=== PATIENT | female | born 1945 | race Caucasian/White ===

== ENCOUNTER 2017-08-19 08:58 | Emergency (ER) | payer MEDICARE, BC ==
[~2017-08-19] VITALS: Ht 167.6 cm; Wt 64.6 kg
[2017-08-19 09:04] VITALS: BP 151/72; PULSE 104; RESP 16; TEMP 98.4; O2SAT 98
[2017-08-19] MEDS ORDERED: ATOR20TA15 PO (09:11)
[2017-08-19] MEDS ORDERED: LEVO100T5 PO (09:11)
[2017-08-19] MEDS ORDERED: DIPH25CA PO (09:11)
[2017-08-19] MEDS ORDERED: PRED20 PO (09:37)
[2017-08-19] MEDS ORDERED: FAMO1TAB37 PO (09:38)
--- NOTE | 2017-08-19 09:39 | PD ---
HPI Chief Complaint: Skin Problem Time Seen by Provider: 09:25 Travel History International Travel<30 days: No Contact w/Intl Traveler<30days: No Traveled to known affect area: No History of Present Illness HPI 72 year old female here for evaluation of rash to her neck and abdomen times one week. She reports the rash is changed location over the course of the week. The rash is pruritic. She denies any new medications, lotions, detergents, foods. She is unable to identify what is causing it. Symptoms are mildly relieved with [id number] Benadryl. She denies difficulty swallowing, change in voice, wheezing, shortness of breath, or diarrhea. Symptom severity is moderate. PFSH Past Medical History High Cholesterol: Yes Diminished Hearing: No Thyroid Disease: Yes Influenza Vaccination: No ?: Not Past Surgical History Surgical History: No Previous Surgery Social History Alcohol Use: No Tobacco Use: No Allergies-Medications (Allergen,Severity, Reaction): Coded Allergies: erythromycin base (Verified Allergy, Intermediate, 08/19/17) Reported Meds & Prescriptions Reported Meds & Active Scripts Active Reported Diphenhydramine (Diphenhydramine HCl) 25 Mg Cap 25 Mg PO HS PRN Atorvastatin (Atorvastatin Calcium) 20 Mg Tab 20 Mg PO HS Levothyroxine (Levothyroxine Sodium) 100 Mcg Tab 100 Mcg PO DAILY Review of Systems Except as stated in HPI: all other systems reviewed are Neg Respiratory: No: Shortness of Breath Skin: Positive Rash, Positive Hives Physical Exam Narrative GENERAL: Well-nourished, well-developed patient. SKIN: Erythematous slightly raised urticarial rash to her lower abdomen left upper thigh. HEAD: Normocephalic. EYES: No scleral icterus. No injection or drainage. NECK: Supple, trachea midline. No JVD or lymphadenopathy. THROAT: No oropharyngeal edema. Uvula is midline. Airway patent CARDIOVASCULAR: Regular rate and rhythm without murmurs, gallops, or rubs. RESPIRATORY: Breath sounds equal bilaterally. No accessory muscle use. No wheezing GASTROINTESTINAL: Abdomen soft, non-tender, nondistended. MUSCULOSKELETAL: No cyanosis, or edema. BACK: Nontender without obvious deformity. No CVA tenderness. Data Data Last Documented VS Vital Signs Date Time Temp Pulse Resp B/P (MAP) Pulse Ox O2 Delivery O2 Flow Rate FiO2 08/19/17 09:04 98.4 104 16 151/72 (98) 98 [facility] Medical Decision Making Medical Screen Exam Complete: Yes Emergency Medical Condition: Yes Differential Diagnosis Urticaria, allergic contact dermatitis, atopic dermatitis Narrative Course 72-year-old female here with urticarial rash on her abdomen times one week. The rash is localized to the trunk and left lower extremity only. Symptoms are slightly improved with Benadryl. Vision is unable to determine the cause. On exam she has urticaria. No oropharyngeal swelling. No wheezing. She'll be treated with steroids and Benadryl. 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 Return precautions discussed. Diagnosis Primary Impression: Urticaria Referrals: Primary Care Physician Additional Instructions: Take medications as prescribed. Continue to take Benadryl 25-50 milligrams every 6 hours as needed for itching. Follow-up with her primary doctor. Return to the emergency department if he developed difficulty swallowing, oral/ facial swelling, difficulty breathing Scripts Famotidine (Pepcid) 20 Mg Tab 20 MG PO BID, #10 TAB 0 Refills Prov: Mai Zavala 08/19/17 Prednisone (Prednisone) 20 Mg Tab 40 MG PO DAILY, #10 TAB 0 Refills Take 40 mg (2 tablets) daily for 5 days Prov: Mai Zavala 08/19/17 Disposition: 01 DISCHARGE HOME Condition: Stable Mai Zavala Aug 19, 2017 09:39
== END 2017-08-19 09:58 | disposition home or self-care (01) ==
LOC: PHEFT 08:58
DX: L50.9 Urticaria, unspecified (principal)
CPT/HCPCS: 99283

== ENCOUNTER 2018-02-07 12:34 | Inpatient (IN) | payer MEDICARE, BC ==
[2018-02-07] VITALS (8 sets, daily range): BP systolic 111–140; BP diastolic 68–91; PULSE 102–124; RESP 17–24; TEMP 97.6–99; O2SAT 92–99
[~2018-02-07] VITALS: Ht 165.1 cm; Wt 53.2 kg
[~2018-02-07 12:34] MED LIST: ATOR20TA15 PO; DIPH25CA PO; FAMO1TAB37 PO; LEVO100T5 PO; PRED20 PO
[2018-02-07] MEDS ORDERED: SODIUM CHLORIDE 0.9% FLUSH 10 ML FLUSH IVF PRN (13:15)
--- NOTE | 2018-02-07 13:21 | PD ---
HPI Chief Complaint: Respiratory Symptoms Time Seen by Provider: 12:50 Travel History International Travel<30 days: No Contact w/Intl Traveler<30days: No Traveled to known affect area: No History of Present Illness HPI The patient is a 72-year-old female who presents to the emergency department via private vehicle for shortness of breath of one weeks duration. The patient no shortness of breath of one weeks duration with increasing symptoms over the last week. The patient does note increasing shortness of breath is worse with exertion, denies any orthopnea or chest pain. The patient does have a remote history of tobacco use for approximately 15 years, quit smoking 13 years ago. The patient saw her primary physician, Dr. Clements, who ordered an outpatient chest x-ray that was performed yesterday. The patient then went back for CT of the thorax today and was referred to the emergency department for abnormal findings. The patient denies any known history of lung carcinoma or other previous cancer including lymphoma. She denies any known history of COPD. She does have a history of hypothyroidism and hyperlipidemia. She denies any recent travel, hospitalizations, surgeries, or history of pulmonary embolism or DVT. She denies any previous history of congestive heart failure. She denies any new swelling to the lower extremities. Symptoms are moderate and progressive. PFSH Past Medical History High Cholesterol: Yes Diminished Hearing: No Thyroid Disease: Yes ?: Not Social History Alcohol Use: No Tobacco Use: No Substance Use: No Allergies-Medications (Allergen,Severity, Reaction): Coded Allergies: erythromycin base (Verified Allergy, Intermediate, 02/07/18) Reported Meds & Prescriptions Reported Meds & Active Scripts Active Pepcid (Famotidine) 20 Mg Tab 20 Mg PO BID Reported Atorvastatin (Atorvastatin Calcium) 20 Mg Tab 20 Mg PO HS Levothyroxine (Levothyroxine Sodium) 100 Mcg Tab 100 Mcg PO DAILY Review of Systems Except as stated in HPI: all other systems reviewed are Neg General / Constitutional: No: Fever Cardiovascular: Positive: Dyspnea on exertion, No: Chest Pain or Discomfort, Diaphoresis Respiratory: Positive: Shortness of Breath Gastrointestinal: No: Nausea, Vomiting, Abdominal Pain Musculoskeletal: No: Edema Neurologic: No: Dizziness Physical Exam Narrative GENERAL: Awake, alert, pleasant 72-year-old female who appears her stated age and is in no acute respiratory distress. SKIN: Focused skin assessment warm/dry. HEAD: Atraumatic. Normocephalic. EYES: No injection or drainage. ENT: No nasal bleeding or discharge. Mucous membranes pink and moist. NECK: Trachea midline. No JVD. CARDIOVASCULAR: Regular, tachycardic with a heart rate of 125. RESPIRATORY: Tachypnea with a respiratory rate of 24. Diminished breath sounds in the left base. GASTROINTESTINAL: Abdomen soft, non-tender, nondistended. No rebound tenderness. MUSCULOSKELETAL: No obvious deformities. No clubbing. No cyanosis. No edema. NEUROLOGICAL: Awake and alert. No obvious cranial nerve deficits. Motor grossly within normal limits. Normal speech. PSYCHIATRIC: Appropriate mood and affect; insight and judgment normal. Data Data Last Documented VS Vital Signs Date Time Temp Pulse Resp B/P (MAP) Pulse Ox O2 Delivery O2 Flow Rate FiO2 02/07/18 13:20 20 97 Nasal Cannula 2.00 02/07/18 13:00 124 02/07/18 12:43 98.3 128/83 (98) Orders Orders Complete Blood Count With Diff (02/07/18 13:04) Comprehensive Metabolic Panel (02/07/18 13:04) B-Type Natriuretic Peptide (02/07/18 13:04) Act Partial Throm Time (Ptt) (02/07/18 13:04) Prothrombin Time / Inr (Pt) (02/07/18 13:04) Magnesium (Mg) (02/07/18 13:04) Ckmb (Isoenzyme) Profile (02/07/18 13:04) Troponin I (02/07/18 13:04) Iv Access Insert/Monitor (02/07/18 13:04) Electrocardiogram (02/07/18 13:04) Ecg Monitoring (02/07/18 13:04) Oximetry (02/07/18 13:04) Oxygen Administration (02/07/18 13:04) Sodium Chloride 0.9% Flush (Ns Flush) (02/07/18 13:15) Admit Order (Ed Use Only) (02/07/18 14:19) Labs Laboratory Tests Test 02/07/18 13:18 White Blood Count 6.8 TH/MM3 Red Blood Count 5.27 MIL/MM3 Hemoglobin 12.4 GM/DL Hematocrit 38.6 % Mean Corpuscular Volume 73.3 FL Mean Corpuscular Hemoglobin 23.6 PG Mean Corpuscular Hemoglobin Concent 32.2 % Red Cell Distribution Width 16.5 % Platelet Count 407 TH/MM3 Mean Platelet Volume 7.2 FL Neutrophils (%) (Auto) 78.1 % Lymphocytes (%) (Auto) 13.5 % Monocytes (%) (Auto) 6.6 % Eosinophils (%) (Auto) 0.9 % Basophils (%) (Auto) 0.9 % Neutrophils # (Auto) 5.3 TH/MM3 Lymphocytes # (Auto) 0.9 TH/MM3 Monocytes # (Auto) 0.4 TH/MM3 Eosinophils # (Auto) 0.1 TH/MM3 Basophils # (Auto) 0.1 TH/MM3 CBC Comment DIFF FINAL Differential Comment Prothrombin Time 10.9 SEC Prothromb Time International Ratio 1.1 RATIO Activated Partial Thromboplast Time 32.1 SEC Blood Urea Nitrogen 22 MG/DL Creatinine 0.80 MG/DL Random Glucose 90 MG/DL Total Protein 8.9 GM/DL Albumin 3.4 GM/DL Calcium Level 9.5 MG/DL Magnesium Level 2.2 MG/DL Alkaline Phosphatase 117 U/L Aspartate Amino Transf (AST/SGOT) 25 U/L Alanine Aminotransferase (ALT/SGPT) 19 U/L Total Bilirubin 0.5 MG/DL Sodium Level 139 MEQ/L Potassium Level 3.8 MEQ/L Chloride Level 103 MEQ/L Carbon Dioxide Level 21.8 MEQ/L Anion Gap 14 MEQ/L Estimat Glomerular Filtration Rate 71 ML/MIN Total Creatine Kinase 55 U/L Troponin I 0.03 NG/ML B-Type Natriuretic Peptide 86 PG/ML MDM Medical Decision Making Medical Screen Exam Complete: Yes Emergency Medical Condition: Yes Medical Record Reviewed: Yes Interpretation(s) [facility] [place] CT all of the chest with contrast reveals there is a malignant appearing left upper lobe mass measuring up to 12.6 cm. It obstructs the left upper lobe bronchus, invades the mediastinum, encases and narrows the left pulmonary artery, and extends into the left atrium. Large left pleural effusion with compressive atelectasis of the left lower lobe. Nonacute findings include moderate to severe emphysema and coronary artery calcification. There is a rim calcified partially visualized cystic lesion in the left upper quadrant which very likely arises from the spleen. Given the appearance and chest findings abdomen and pelvis CT with IV contrast it is suggested for further evaluation. EKG reveals sinus tachycardia with a heart rate of 113. Q-wave noted in lead V1 and V2. Laboratory Tests Test 02/07/18 13:18 White Blood Count 6.8 TH/MM3 Red Blood Count 5.27 MIL/MM3 Hemoglobin 12.4 GM/DL Hematocrit 38.6 % Mean Corpuscular Volume 73.3 FL Mean Corpuscular Hemoglobin 23.6 PG Mean Corpuscular Hemoglobin Concent 32.2 % Red Cell Distribution Width 16.5 % Platelet Count 407 TH/MM3 Mean Platelet Volume 7.2 FL Neutrophils (%) (Auto) 78.1 % Lymphocytes (%) (Auto) 13.5 % Monocytes (%) (Auto) 6.6 % Eosinophils (%) (Auto) 0.9 % Basophils (%) (Auto) 0.9 % Neutrophils # (Auto) 5.3 TH/MM3 Lymphocytes # (Auto) 0.9 TH/MM3 Monocytes # (Auto) 0.4 TH/MM3 Eosinophils # (Auto) 0.1 TH/MM3 Basophils # (Auto) 0.1 TH/MM3 CBC Comment DIFF FINAL Differential Comment Prothrombin Time 10.9 SEC Prothromb Time International Ratio 1.1 RATIO Activated Partial Thromboplast Time 32.1 SEC Blood Urea Nitrogen 22 MG/DL Creatinine 0.80 MG/DL Random Glucose 90 MG/DL Total Protein 8.9 GM/DL Albumin 3.4 GM/DL Calcium Level 9.5 MG/DL Magnesium Level 2.2 MG/DL Alkaline Phosphatase 117 U/L Aspartate Amino Transf (AST/SGOT) 25 U/L Alanine Aminotransferase (ALT/SGPT) 19 U/L Total Bilirubin 0.5 MG/DL Sodium Level 139 MEQ/L Potassium Level 3.8 MEQ/L Chloride Level 103 MEQ/L Carbon Dioxide Level 21.8 MEQ/L Anion Gap 14 MEQ/L Estimat Glomerular Filtration Rate 71 ML/MIN Total Creatine Kinase 55 U/L Troponin I 0.03 NG/ML B-Type Natriuretic Peptide 86 PG/ML Differential Diagnosis Differential diagnosis includes lung carcinoma, lymphoma, squamous cell carcinoma, non-small cell carcinoma, compressive atelectasis, malignant pleural effusion, pulmonary embolism, metastatic cancer, hypoxia. Narrative Course IV was established, labs are drawn and sent, and the patient was placed on cardiac telemetry monitoring and continuous pulse oximetry monitoring. EKG was ordered and interpreted. I reviewed the patient's x-ray findings and CT of the thorax findings from [facility] [place] [facility]. The patient was placed on oxygen via nasal cannula 2 L. The patient will be admitted to the medical service covering for Dr. Clements. The patient will need evaluation by pulmonology, oncology, possibly cardiothoracic regarding the large mass that is encroaching on the pulmonary artery and the left atrium. Labs are essentially unremarkable. The patient is medically cleared to be admitted to the medical service. The patient will need evaluation and possible biopsy. The patient is comfortable with this plan of care and disposition. Therefore, [facility]. Physician Communication Physician Communication [facility] were [facility]. I discussed the patient Dr. Hamilton who agrees with admission. Diagnosis Primary Impression: Mass of left lung Additional Impressions: Pleural effusion Dyspnea Qualified Codes: R06.09 - Other forms of dyspnea Admitting Information Admitting Physician Requests: Admit Condition: Stable Darryl Sun MD February 07, 2018 13:21
[2018-02-07 13:32] LABS: AUTOMATED NEUTROPHIL # 5.3 TH/MM3 (1.8-7.7); BASOPHIL # 0.1 TH/MM3 (0-0.2); BASOPHIL % 0.9 % (0.0-2.0); EOSINOPHIL # 0.1 TH/MM3 (0-0.4); EOSINOPHIL % 0.9 % (0.0-4.0); HEMATOCRIT 38.6 % (35.0-46.0); HEMOGLOBIN 12.4 GM/DL (11.6-15.3); LYMPH % 13.5 % (9.0-44.0); LYMPHOCYTE # 0.9 TH/MM3 (1.0-4.8); MEAN CELL VOLUME 73.3 FL (80.0-100.0); MEAN CORPUSCULAR HEMOGLOBIN 23.6 PG (27.0-34.0); MEAN CORPUSCULAR HGB CONC 32.2 % (32.0-36.0); MEAN PLATELET VOLUME 7.2 FL (7.0-11.0); MONO % 6.6 % (0.0-8.0); MONOCYTE # 0.4 TH/MM3 (0-0.9); NEUT % 78.1 % (16.0-70.0); PLATELET COUNT 407 TH/MM3 (150-450); RED BLOOD COUNT 5.27 MIL/MM3 (4.00-5.30); RED CELL DISTRIBUTION WIDTH 16.5 % (11.6-17.2); WHITE BLOOD COUNT 6.8 TH/MM3 (4.0-11.0)
[2018-02-07 13:43] LABS: INTERNATIONAL NORMALIZED RATIO 1.1 RATIO; PROTHROMBIN TIME - PATIENT 10.9 SEC (9.8-11.6)
[2018-02-07 13:49] LABS: ALBUMIN 3.4 GM/DL (3.4-5.0); AST (GOT) 25 U/L (15-37); BICARBONATE 21.8 MEQ/L (21.0-32.0); BLOOD UREA NITROGEN 22 MG/DL (7-18); CALCIUM 9.5 MG/DL (8.5-10.1); CHLORIDE 103 MEQ/L (98-107); GLOMERULAR FILTRATION RATE 71 ML/MIN (>89); GLUCOSE,RANDOM 90 MG/DL (74-106); MAGNESIUM 2.2 MG/DL (1.5-2.5); SODIUM (NA) 139 MEQ/L (136-145)
[2018-02-07 13:54] LABS: ALKALINE PHOSPHATASE 117 U/L (45-117); ALT (GPT) 19 U/L (10-53); TOTAL BILIRUBIN ADULT 0.5 MG/DL (0.2-1.0); TOTAL PROTEIN 8.9 GM/DL (6.4-8.2); TROPONIN I 0.03 NG/ML (0.02-0.05)
[2018-02-07] MEDS ORDERED: BISACODYL 10 MG SUPP RECTAL PRN (14:45)
[2018-02-07] MEDS ORDERED: LACTULOSE SYRUP 20 GM/30 ML CUP PO PRN (14:45)
[2018-02-07] MEDS ORDERED: SENNOSIDES 8.6 MG TAB PO PRN (14:45)
[2018-02-07] MEDS ORDERED: NALOXONE HCL 0.4 MG/ML AMP IV PUSH PRN (14:45)
[2018-02-07] MEDS ORDERED: ACETAMINOPHEN/HYDROcodone 325 MG/5 MG TAB PO PRN (14:45)
[2018-02-07] MEDS ORDERED: ACETAMINOPHEN 325 MG TAB PO PRN ×2 (14:45)
[2018-02-07] MEDS ORDERED: MAGNESIUM HYDROXIDE SUSP 30 ML CUP PO PRN (14:45)
--- NOTE | 2018-02-07 14:50 | HHI.HP ---
cc: Jody Clements Jr., MD [facility] Service [facility] Primary Care Physician Jody Clements MD Admission Diagnosis Large left lung mass, large left pleural effusion, dyspnea Diagnoses: (1) Mass of left lung (2) Pleural effusion (3) Dyspnea Chief Complaint: Shortness of breath Travel History International Travel<30 Days: No Contact w/Intl Traveler <30 Da: No Traveled to Known Affected Are: No History of Present Illness The patient is a 72-year-old female who presented to the emergency department for evaluation of shortness of breath that has been going on for the past week. She states that she saw her primary care physician a couple days ago. He ordered a chest x-ray, which was abnormal. CT of the thorax was done today and the patient was referred to the emergency department for further workup of a large left upper lobe mass. Patient continues to have shortness of breath. Denies chest pain. Dyspnea is somewhat improved now that she is on supplemental oxygen. Review of Systems Constitutional: DENIES: Fever, Chills, Night Sweats Eyes: DENIES: Blurred vision, Vision loss Ears, nose, mouth, throat: DENIES: Hearing loss Respiratory: COMPLAINS OF: Shortness of breath, DENIES: Cough, Wheezing, Sputum production Cardiovascular: DENIES: Chest pain, Palpitations, Dyspnea on Exertion, Lower Extremity Edema Gastrointestinal: DENIES: Abdominal pain, Constipation, Diarrhea, Nausea, Vomiting Genitourinary: DENIES: Urinary frequency, Urinary incontinence, Urgency, Hematuria, Dysuria, Nocturia Musculoskeletal: DENIES: Joint pain, Muscle aches Integumentary: DENIES: Pruritus, Rash Hematologic/lymphatic: DENIES: Bruising Neurologic: DENIES: Headache Past Family Social History Past Medical History Hyperlipidemia Hypothyroidism Past Surgical History Tonsillectomy Reported Medications Pepcid (Famotidine) 20 Mg Tab 20 Mg PO BID Atorvastatin (Atorvastatin Calcium) 20 Mg Tab 20 Mg PO HS Levothyroxine (Levothyroxine Sodium) 100 Mcg Tab 100 Mcg PO DAILY Allergies: Coded Allergies: erythromycin base (Verified Allergy, Intermediate, 02/07/18) Family History Mother had colon cancer Social History Quit smoking 13 years ago. Had smoked 1-1.5 packs per day for 15-20 years. Denies alcohol or illicit drug use. Physical Exam Vital Signs Vital Signs Date Time Temp Pulse Resp B/P (MAP) Pulse Ox O2 Delivery O2 Flow Rate FiO2 02/07/18 13:20 20 97 Nasal Cannula 2.00 02/07/18 13:19 98 Room Air 2.00 02/07/18 13:00 124 20 95 Room Air 02/07/18 12:59 96 Room Air 02/07/18 12:43 98.3 124 24 128/83 (98) 95 Physical Exam GENERAL: Well-nourished, well-developed female in no acute distress. HEENT: Normocephalic, atraumatic. Pupils equal, round and reactive. Extraocular movements intact. No scleral icterus. No injection or drainage. Oropharynx is clear. Mucous membranes are moist. CARDIOVASCULAR: Tachycardic. RESPIRATORY: Decreased breath sounds on the left. Breathing is non-labored. GASTROINTESTINAL: Abdomen soft, non-tender, nondistended. EXTREMITIES: No lower extremity edema. No calf tenderness. PSYCH: Alert and oriented x 3. Laboratory Laboratory Tests Test 02/07/18 13:18 White Blood Count 6.8 Red Blood Count 5.27 Hemoglobin 12.4 Hematocrit 38.6 Mean Corpuscular Volume 73.3 Mean Corpuscular Hemoglobin 23.6 Mean Corpuscular Hemoglobin Concent 32.2 Red Cell Distribution Width 16.5 Platelet Count 407 Mean Platelet Volume 7.2 Neutrophils (%) (Auto) 78.1 Lymphocytes (%) (Auto) 13.5 Monocytes (%) (Auto) 6.6 Eosinophils (%) (Auto) 0.9 Basophils (%) (Auto) 0.9 Neutrophils # (Auto) 5.3 Lymphocytes # (Auto) 0.9 Monocytes # (Auto) 0.4 Eosinophils # (Auto) 0.1 Basophils # (Auto) 0.1 CBC Comment DIFF FINAL Differential Comment Prothrombin Time 10.9 Prothromb Time International Ratio 1.1 Activated Partial Thromboplast Time 32.1 Blood Urea Nitrogen 22 Creatinine 0.80 Random Glucose 90 Total Protein 8.9 Albumin 3.4 Calcium Level 9.5 Magnesium Level 2.2 Alkaline Phosphatase 117 Aspartate Amino Transf (AST/SGOT) 25 Alanine Aminotransferase (ALT/SGPT) 19 Total Bilirubin 0.5 Sodium Level 139 Potassium Level 3.8 Chloride Level 103 Carbon Dioxide Level 21.8 Anion Gap 14 Estimat Glomerular Filtration Rate 71 Total Creatine Kinase 55 Troponin I 0.03 B-Type Natriuretic Peptide 86 Result Diagram: 02/07/18 1318 02/07/[address] [facility] today, report is as follows: Malignant appearing left upper lobe mass measuring up to 12.6 cm. It obstructs the left upper lobe bronchus, invades the mediastinum, encases and narrows the left pulmonary artery, and extends into the left atrium. Large left pleural effusion with compressive atelectasis of the left lower lobe. Caprini VTE Risk Assessment Caprini VTE Risk Assessment: Mod/High Risk (score >= 2) Caprini Risk Assessment Model Point Value = 1 Point Value = 2 Point Value = 3 Point Value = 5 Age 41-60 Minor surgery BMI > 25 kg/m2 Swollen legs Varicose veins or History of unexplained or recurrent spontaneous Oral contraceptives or hormone replacement Sepsis (< 1 month) Serious lung disease, including pneumonia (< 1 month) Abnormal pulmonary function Acute myocardial infarction Congestive heart failure (< 1 month) History of inflammatory bowel disease Medical patient at bed rest Age 61-74 Arthroscopic surgery Major open surgery (> 45 min) Laparoscopic surgery (> 45 min) Malignancy Confined to bed (> 72 hours) Immobilizing plaster cast Central venous access Age >= 75 History of VTE Family history of VTE Factor V Leiden Prothrombin [id number] Lupus anticoagulant Anticardiolipin antibodies Elevated serum homocysteine Heparin-induced thrombocytopenia Other congenital or acquired thrombophilia Stroke (< 1 month) Elective arthroplasty Hip, pelvis, or leg fracture Acute spinal cord injury (< 1 month) Prophylaxis Regimen Total Risk Factor Score Risk Level Prophylaxis Regimen 0-1 Low Early ambulation 2 Moderate Order ONE of the following: *Sequential Compression Device (SCD) *Heparin 5000 units SQ BID 3-4 Higher Order ONE of the following medications: *Heparin 5000 units SQ TID *Enoxaparin/Lovenox 40 mg SQ daily (WT < 150 kg, CrCl > 30 mL/min) *Enoxaparin/Lovenox 30 mg SQ daily (WT < 150 kg, CrCl > 10-29 mL/min) *Enoxaparin/Lovenox 30 mg SQ BID (WT < 150 kg, CrCl > 30 mL/min) AND/OR *Sequential Compression Device (SCD) 5 or more Highest Order ONE of the following medications: *Heparin 5000 units SQ TID (Preferred with Epidurals) *Enoxaparin/Lovenox 40 mg SQ daily (WT < 150 kg, CrCl > 30 mL/min) *Enoxaparin/Lovenox 30 mg SQ daily (WT < 150 kg, CrCl > 10-29 mL/min) *Enoxaparin/Lovenox 30 mg SQ BID (WT < 150 kg, CrCl > 30 mL/min) AND *Sequential Compression Device (SCD) Assessment and Plan Assessment and Plan 1. Lung mass: Concerning for malignancy. Consult pulmonology, cardiothoracic surgery, and oncology. 2. Pleural effusion: Diagnostic/therapeutic ultrasound-guided thoracentesis ordered. Cytology ordered. 3. Hypothyroidism: Continue Synthroid. 4. Dyslipidemia: Continue statin. 5. DVT prophylaxis: SCDs, KASANDRA hose. Avoid chemical prophylaxis in anticipation of invasive procedure. Problem Qualifiers (1) Dyspnea: Qualified Codes: R06.09 - Other forms of dyspnea Samy Hamilton MD February 07, 2018 14:50
[2018-02-07] MEDS ORDERED: ONDANSETRON ODT 4 MG TAB PO PRN (15:00)
[2018-02-07] MEDS ORDERED: LIDOCAINE HCL 1% 20 ML VIAL ONE (16:08)
--- NOTE | 2018-02-07 16:24 | RADRPT ---
EXAM DATE/TIME: 02/07/2018 16:07 [facility] COMPARISON: No previous studies available for comparison. INDICATIONS : Post left thoracentesis. MEDICAL HISTORY : Hypercholesterolemia. SURGICAL HISTORY : None. ENCOUNTER: Initial ACUITY: 1 day PAIN SCORE: 8/10 LOCATION: Bilateral chest FINDINGS: Single view chest is provided. This demonstrates some continued residual pleural effusion on the left . The patient recently underwent left thoracentesis with removal of approximately 2 L of fluid. There is diffuse interstitial prominence on the right. The heart is normal in size. Note is made of 2 large well-circumscribed calcifications in the left upper quadrant of the abdomen. These are indeterminate in appearance. CT imaging of the abdomen would be of benefit for further asse ssment. These may represent calcified cyst however calcified aneurysm is not excluded. The osseous structures are intact. CONCLUSION: 1. There is a moderate amount of residual pleural effusion seen on the left despite removal of approx imately 2 L of fluid. No pneumothorax is identified. 2. There are 2 calcifications seen within the left upper quadrant of the abdomen measuring greater th an 5 cm. These are indeterminate by this x-ray. Differential considerations would include calcified c yst versus less likely aneurysm. CT imaging of the abdomen could be performed for more definitive ass essment. Marquez Fitzgerald MD on February 07, 2018 at 16:19 Board Certified Radiologist. This report was verified electronically.
--- NOTE | 2018-02-07 16:42 | RADRPT ---
EXAM DATE/TIME: 02/07/2018 15:20 [facility] COMPARISON: No previous studies available for comparison. INDICATIONS : Large left pleural effusion per CT done 02/06/18. MEDICAL HISTORY : Hypercholesterolemia. Hypothyroidism. SURGICAL HISTORY : Tonsillectomy. ENCOUNTER: Initial ACUITY: 1 week PAIN SCORE: 0/10 LOCATION: Left chest FLUID: Total volume of 1,800 cc of clear, red fluid was removed. Fluid was sent to lab for ordered studies. Post procedure scanning reveals no hematoma or other complication. TECHNIQUE: 1. Ultrasound guidance for thoracentesis. 2. Thoracentesis. The risks, benefits, and alternatives to ultrasound guided thoracentesis were explained to the patien t in lay simple terms, including the risk of bleeding and infection. Written and verbal informed con sent was obtained. Appropriate area for thoracentesis was marked under ultrasound guidance with the patient in the uprig ht position. Overlying skin was prepped and draped in the usual sterile fashion and with local anest hetic, a dermatotomy was made with an 11 blade scalpel. A 6 Latvian thoracentesis catheter was placed in the pleural space and fluid was removed. Catheter was then removed and a sterile dressing applie d. There were no immediate complications. The patient tolerated the procedure well and the left the ultrasound suite in stable condition. Chest radiograph is to be obtained. CONCLUSION: Uncomplicated ultrasound guided thoracentesis. Marquez Fitzgerald MD on February 07, 2018 at 16:39 Board Certified Radiologist. This report was verified electronically.
[2018-02-07] MEDS: ACETAMINOPHEN/HYDROcodone 325 MG/7.5 MG TAB PO PRN ×2 (17:10→21:11)
[2018-02-07 17:15] LABS: TOTAL PROTEIN,PLEURAL FLUID 4.7 GM/DL
[2018-02-07] MEDS ORDERED: DEXT 5%-NACL 0.45% 1000 ML INJ 1,000 ML IV SCH (17:38)
[2018-02-07] MEDS ORDERED: RESP: LIDOCAINE HCL 4% PF 5 ML NEB NEB SCH (17:45)
--- NOTE | 2018-02-07 17:56 | MB ---
cc: Lelo Lind MD DATE: 02/07/2018 REASON FOR CONSULTATION: Left lung mass. Malignancy suspect. HISTORY OF PRESENT ILLNESS: Mrs. Alford is a 72-year-old female who presents with increasing shortness of breath and a large left pleural effusion. The patient had a CT scan of the chest with evidence of a large left upper lobe lung mass. She underwent a thoracentesis with removal of 2 liters of fluid from the left pleural space. She is not short of breath; however, has some pain post-thoracentesis. She denies history of cough, expectoration, fever or chills. She used to smoke but stopped smoking about 13 years ago. PAST MEDICAL HISTORY: That of hypothyroidism, hyperlipidemia. No diabetes, no hypertension, no heart disease, acid reflux disease. ALLERGIES: ERYTHROMYCIN. FAMILY HISTORY: Positive for a mother who has colon cancer. SOCIAL HISTORY: Smoked; however, stopped as mentioned above about 13 years ago. She has a [id number] smoking history. Does not drink any alcohol, does not use drugs. REVIEW OF SYSTEMS: A 12-point review of systems is as per HPI and Past History, otherwise negative. PHYSICAL EXAMINATION: GENERAL: On exam, patient is alert, complaining of left shoulder pain. VITAL SIGNS: Temperature 98, pulse 110, respirations 20, blood pressure 130/80, oxygen saturation 96% on 2 liters oxygen nasal cannula. HEENT: Exam unremarkable. Eyes without icterus. NECK: Without adenopathy or thyroid enlargement. CHEST: Decreased breath sounds in the left base. CARDIAC EXAM: PMI not appreciated. S1, S2 audible. No murmur, no rub. ABDOMEN: Lax. Bowel sounds audible. EXTREMITIES: No clubbing, cyanosis or edema. LABORATORY DATA: White count 13,000, hemoglobin 12, hematocrit 38, platelets 407,000. Sodium 139, potassium 3.9, BUN 22, creatinine 0.8. IMAGING STUDIES: CT scan of the chest: A 12.6 cm mass, left upper lung, highly suspicious for malignancy with obstruction of the left upper lobe bronchus and mediastinal invasion, actually encasing and narrowing the pulmonary artery. IMPRESSION: 1. Left lung mass, malignancy highly suspect. 2. Left pleural effusion, likely malignant. 3. Question chronic obstructive pulmonary disease. 4. Hypothyroidism. 5. Hyperlipidemia. PLAN: The patient's left lung mass seems accessible to bronchoscopic examination. She did have a thoracentesis, which may yield a diagnosis. However, given the waiting period, I feel it appropriate to proceed with bronchoscopy at this time and obtain tissue diagnosis endobronchially which I discussed with the patient in detail including risks and possible complications. She is agreeable to proceed at this time. I do thank you for asking me to partake in Mrs. Alford's care. Lelo Lind MD WWW/MAYA , 05:38 PM , 05:55 PM
[2018-02-07] MEDS ORDERED: DIATRIZOATE MEGLUM/DIATRIZOATE SOD 9 ML CUP PO ONE (18:30)
[2018-02-07 18:33] LABS: PLEURAL FLUID HISTIOCYTES 1 %; PLEURAL FLUID LYMPHS 92 %; PLEURAL FLUID MESOTHELIAL 1 %; PLEURAL FLUID MONOS 1 %; PLEURAL FLUID POLYS (SEGS) 5 %
[2018-02-07 18:35] LABS: PLEURAL FLUID RBC 6835 /MM3 (0-0); PLEURAL FLUID WBC 767 /MM3 (0-10)
[2018-02-07] MEDS: DOCUSATE SODIUM 50 MG/SENNA 8.6 MG TAB PO SCH (21:00)
[2018-02-07] MEDS: ATORVASTATIN 20 MG TAB PO SCH (21:09)
[2018-02-07] MEDS ORDERED: IOHEXOL 350 MG/ML 10 ML VIAL (for RAD DIAG) IVCONTRAST ONE (22:35)
--- NOTE | 2018-02-07 23:15 | RADRPT ---
EXAM DATE/TIME: 02/07/2018 22:18 [facility] COMPARISON: No previous studies available for comparison. INDICATIONS : Evaluate for metastatic disease IV CONTRAST: 70 cc Omnipaque 350 (iohexol) IV ORAL CONTRAST: Prescribed oral contrast ingested. RADIATION DOSE: 9.28 CTDIvol (mGy) MEDICAL HISTORY : Lung mass, thyroid disease SURGICAL HISTORY : None. ENCOUNTER: Initial ACUITY: 1 day PAIN SCALE: 4/10 LOCATION: Abdomen TECHNIQUE: Volumetric scanning of the abdomen and pelvis was performed. Using automated exposure control and ad justment of the mA and/or kV according to patient size, radiation dose was kept as low as reasonably achievable to obtain optimal diagnostic quality images. DICOM format image data is available electro nically for review and comparison. FINDINGS: LOWER LUNGS: There is a large left pleural effusion partially visualized. No effusion on the right. LIVER: Multiple tiny low-density hepatic lesions are seen. These are to small to accurately characterize wit h CT. There is a dominant lesion measuring 17 mm within the dome of the liver in segment 7. It is low in density but poorly marginated. No ductal dilatation. Gallbladder is unremarkable. Portal veins pa tent. SPLEEN: 3 rim calcified cyst involving the liver. 2 are quite large measuring 6.6 cm and 5.5 cm respectively. The spleen is otherwise unremarkable.. PANCREAS: Within normal limits. KIDNEYS: Normal in size and shape. There is no mass, stone or hydronephrosis. ADRENAL GLANDS: Within normal limits. VASCULAR: There is no aortic aneurysm. BOWEL/MESENTERY: The stomach, small bowel, and colon demonstrate no acute abnormality. There is no free intraperitone al air or fluid. ABDOMINAL WALL: Within normal limits. RETROPERITONEUM: There is no lymphadenopathy. BLADDER: No wall thickening or mass. REPRODUCTIVE: Within normal limits. INGUINAL: There is no lymphadenopathy or hernia. MUSCULOSKELETAL: Within normal limits for patient age. CONCLUSION: 1. Several tiny low density lesions involving the liver with a 17 mm dominant lesion within the right lobe. These are poorly characterized given their small size. I cannot exclude metastatic lesions. Co nsideration could be made to an MRI of the liver to further evaluate. 2. Partial visualization of a large left pleural effusion. 3. 3 rim calcified cysts involving the spleen. Richard Anne Jr., MD on February 07, 2018 at 23:07 Board Certified Radiologist. This report was verified electronically.
[2018-02-07] MEDS ORDERED: MORPHINE SULFATE 4 MG/ML INJ IV PUSH ONE (23:30)
--- NOTE | 2018-02-07 23:44 | RADRPT ---
EXAM DATE/TIME: 02/07/2018 23:18 [facility] COMPARISON: CHEST EXPIRATION ONLY, February 07, 2018, 16:07. INDICATIONS : Left upper chest pain post thoracentesis. MEDICAL HISTORY : Hypercholesterolemia. SURGICAL HISTORY : None. ENCOUNTER: Subsequent ACUITY: 1 day PAIN SCORE: 5/10 LOCATION: Left upper chest FINDINGS: A single portable frontal view the chest shows significant cardiomegaly. Consolidation involving the majority of the left lung. Either apical pleural thickening or loculated fluid on the left side. Righ t lung is clear. Rim calcified splenic cyst noted. Contrast within the collecting system of both kidn eys. No pneumothorax. CONCLUSION: Unchanged cardiomegaly and left lung infiltrate. No pneumothorax. Richard Anne Jr., MD on February 07, 2018 at 23:41 Board Certified Radiologist. This report was verified electronically.
[2018-02-08] VITALS: BP 137/79; PULSE 97; RESP 17; TEMP 97.4; O2SAT 94
[2018-02-08] MEDS ORDERED: POVIDONE IODINE 5% (ANTISEPSIS KIT) 4 APPLICATIONS EACH NARE PRN (03:00)
[2018-02-08] MEDS ORDERED: SODIUM CHLORID 0.9% 500 ML IV PRN (03:00)
[2018-02-08] MEDS ORDERED: LACTATED RINGER'S 1000 ML IV PRN (03:00)
[2018-02-08] MEDS ORDERED: CHLORHEXIDINE GLUCONATE 2 % 1 PACK (2 CLOTHS) TOPICAL PRN (03:00)
[2018-02-08] MEDS: LEVOTHYROXINE SODIUM 100 MCG TAB PO SCH (05:29)
[2018-02-08] MEDS: DOCUSATE SODIUM 50 MG/SENNA 8.6 MG TAB PO SCH ×2 (07:16→21:00)
[2018-02-08 08:00] VITALS: BP 131/62; PULSE 96; RESP 19; TEMP 97.7; O2SAT 94
--- NOTE | 2018-02-08 08:10 | HHI.PR ---
Subjective Remarks ALERT NO SOB Objective Vital Signs Date Time Temp Pulse Resp B/P (MAP) Pulse Ox O2 Delivery O2 Flow Rate FiO2 02/08/18 00:00 97.4 97 17 137/79 (98) 94 02/07/18 20:00 98.9 107 17 131/85 (100) 92 02/07/18 17:18 97.6 108 18 140/86 (104) 99 02/07/18 16:04 98.7 109 18 117/91 (100) 95 02/07/18 15:22 99.0 102 18 112/79 (90) 95 02/07/18 15:20 02/07/18 15:11 102 20 111/68 (82) 95 Nasal Cannula 2.00 02/07/18 13:20 20 97 Nasal Cannula 2.00 02/07/18 13:19 98 Room Air 2.00 02/07/18 13:00 124 20 95 Room Air 02/07/18 12:59 96 Room Air 02/07/18 12:43 98.3 124 24 128/83 (98) 95 I/O 02/07/18 02/07/18 02/07/18 02/08/18 02/08/18 02/08/18 07:00 15:00 23:00 07:00 15:00 23:00 Intake Total 0 ml Balance 0 ml Intake Oral 0 ml # Voids 2 Result Diagram: 02/07/18 1318 02/07/18 1318 Objective Remarks GENERAL: SKIN: Warm and dry. HEAD: Atraumatic. Normocephalic. EYES: Pupils equal and round. No scleral icterus. No injection or drainage. ENT: No nasal bleeding or discharge. Mucous membranes pink and moist. NECK: Trachea midline. No JVD. CARDIOVASCULAR: Regular rate and rhythm. RESPIRATORY: No accessory muscle use. Clear to auscultation. Breath sounds equal bilaterally. GASTROINTESTINAL: Abdomen soft, non-tender, nondistended. Hepatic and splenic margins not palpable. MUSCULOSKELETAL: Extremities without clubbing, cyanosis, or edema. No obvious deformities. NEUROLOGICAL: Awake and alert. No obvious cranial nerve deficits. Motor grossly within normal limits. Five out of 5 muscle strength in the arms and legs. Normal speech. PSYCHIATRIC: Appropriate mood and affect; insight and judgment normal. Assessment and Plan Assessment and Plan LUNG MASS CA SUSPECT L PLEURAL EFFUSION PLAN BRONCHOSCOPY TODAY Lelo Lind MD February 08, 2018 08:10
[2018-02-08] MEDS ORDERED: DO NOT ADM ANY ANTICOAGULANT DRUGS PRN (08:45)
[2018-02-08 08:55] LABS: BICARBONATE 23.4 MEQ/L (21.0-32.0); CALCIUM 9.2 MG/DL (8.5-10.1); CREATININE 0.48 MG/DL (0.50-1.00)
[2018-02-08] MEDS ORDERED: MIDAZOLAM HCL 2 MG/2 ML VIAL ONE (09:00)
--- NOTE | 2018-02-08 09:04 | MR ---
cc: Lelo Lind MD DATE: 02/08/2018 PROCEDURE PERFORMED: Fiberoptic bronchoscopy, flexible. REASON FOR BRONCHOSCOPY: Left lung mass malignancy suspect. PROCEDURE: Fiberoptic bronchoscopy performed via LMA. Vocal cords intact. Trachea mildly hyperemic, frandy sharp. Right main bronchus, right upper, middle, and lower lobes, without obstruction or mass lesion. Left main bronchus orifice open at the bifurcation left upper and lower lobes. Significant obstruction of both upper and lower lobes, more so in the upper lobe with a fungating mass lesion within the lower left main bronchus. Washings, brushings and biopsy of the bifurcation area in the left upper and left lower lobe orifice were taken and sent for cytological exam as well as pathological exam. Biopsy x 2 were done. A cytological brush biopsies were done as well and sent for cytological exam. Procedure was very well tolerated. The patient was transferred to the recovery in stable condition. Minimal bleeding from biopsy site was noted, however, this has stopped at the end of the procedure. IMPRESSION: 1. Mass, left main bronchus at the bifurcation of the left upper and lower lobes. 2. Mild tracheobronchitis. 3. Samples obtained as above. 4. Procedure well tolerated. 5. The patient transferred to recovery in stable condition. Lelo Lind MD WWW/TL , 08:36 AM , 09:03 AM
[2018-02-08 10:45] VITALS: O2SAT 96
[2018-02-08 12:00] VITALS: BP 115/57; PULSE 88; RESP 19; TEMP 97.6; O2SAT 96
--- NOTE | 2018-02-08 13:41 | HHI.PR ---
Subjective Remarks Follow-up lung mass, pleural effusion. Patient states that she feels much better. No pain at this time. Shortness of breath has improved as well. Objective Vitals Vital Signs Date Time Temp Pulse Resp B/P (MAP) Pulse Ox O2 Delivery O2 Flow Rate FiO2 02/08/18 12:00 97.6 88 19 115/57 (76) 96 02/08/18 10:45 96 Nasal Cannula 2.00 02/08/18 09:15 115 16 116/57 (76) 91 Nasal Cannula 2 02/08/18 09:15 98.0 115 16 103/57 (72) 94 Nasal Cannula 2 02/08/18 09:00 119 16 116/57 (76) 94 Nasal Cannula 2 02/08/18 08:40 98.0 110 16 110/55 (73) 94 Nasal Cannula 2 02/08/18 08:00 97.7 96 19 131/62 (85) 94 02/08/18 00:00 97.4 97 17 137/79 (98) 94 02/07/18 20:00 98.9 107 17 131/85 (100) 92 02/07/18 17:18 97.6 108 18 140/86 (104) 99 02/07/18 16:04 98.7 109 18 117/91 (100) 95 02/07/18 15:22 99.0 102 18 112/79 (90) 95 02/07/18 15:20 02/07/18 15:11 102 20 111/68 (82) 95 Nasal Cannula 2.00 I/O 02/07/18 02/07/18 02/07/18 02/08/18 02/08/18 02/08/18 06:59 14:59 22:59 06:59 14:59 22:59 Intake Total 0 ml Balance 0 ml Intake Oral 0 ml # Voids 2 Result Diagram: 02/07/18 1318 02/08/18 0711 Imaging Last Impressions Chest X-Ray 02/07/18 2315 Signed Impressions: Service Date/Time: Wednesday, February 07, 2018 23:18 - CONCLUSION: Unchanged cardiomegaly and left lung infiltrate. No pneumothorax. Richard Anne Jr., MD Thoracentesis Ultrasound 02/07/18 0000 Signed Impressions: Service Date/Time: Wednesday, February 07, 2018 15:20 - CONCLUSION: Uncomplicated ultrasound guided thoracentesis. Marquez Fitzgerald MD Abdomen/Pelvis CT 02/07/18 0000 Signed Impressions: Service Date/Time: Wednesday, February 07, 2018 22:18 - CONCLUSION: 1. Several tiny low density lesions involving the liver with a 17 mm dominant lesion within the right lobe. These are poorly characterized given their small size. I cannot exclude metastatic lesions. Consideration could be made to an MRI of the liver to further evaluate. 2. Partial visualization of a large left pleural effusion. 3. 3 rim calcified cysts involving the spleen. Richard Anne Jr., MD Objective Remarks General: No acute distress. Heart: Regular rate and rhythm. No murmur. Lungs: Decreased breath sounds on the left, better than yesterday. Breathing is nonlabored. Abdomen: Soft, nontender, nondistended. Extremities: No lower extremity edema. Psych: Alert and oriented. Neuro: Normal speech. No focal deficits noted. Procedures 02/07/18 thoracentesis 02/08/18 bronchoscopy Urinary Catheter: No Vascular Central Line Catheter: No A/P Problem List: (1) Mass of left lung ICD Code: R91.8 - Other nonspecific abnormal finding of lung field Status: Acute (2) Pleural effusion ICD Code: J90 - Pleural effusion, not elsewhere classified Status: Acute (3) Dyspnea ICD Code: R06.00 - Dyspnea, unspecified Status: Acute Assessment and Plan 1. Lung mass: Concerning for malignancy. Appreciate pulmonology recommendations. Status post bronchoscopy. Pathology is pending. CT surgery and oncology consultations are pending. 2. Pleural effusion: Diagnostic/therapeutic ultrasound-guided thoracentesis done. Cytology pending. 3. Hypothyroidism: Continue Synthroid. 4. Dyslipidemia: Continue statin. 5. DVT prophylaxis: SCDs, KASANDRA hose. Discharge Planning Possible discharge home tomorrow if cleared by pulmonology, CT surgery, oncology. Problem Qualifiers (1) Dyspnea: Qualified Codes: R06.09 - Other forms of dyspnea Samy Hamilton MD February 08, 2018 13:41
[2018-02-08 16:00] VITALS: BP 101/60; PULSE 108; RESP 19; TEMP 97.8; O2SAT 93
--- NOTE | 2018-02-08 16:59 | MB ---
cc: Lisa Head Jacqueline R ARNP DATE: 02/08/2018 DATE OF : 1945 HISTORY OF PRESENT ILLNESS: A 72-year-old female presented with shortness of breath, large left pleural effusion, underwent left thoracentesis with removal of 2 liters of fluid, cultures and pathology pending. Previous to that, she had a CT of the chest on 02/07/2018 at [facility] showing a malignant-appearing left upper lobe mass measuring 12.6 cm obstructing the left upper bronchus, invading the mediastinum, encasing and narrows the left pulmonary artery and also extending into the left atrium. The patient has a mediastinal shift to the right. We were consulted to evaluate for possible biopsy for lung mass. Dr. Haile reviewed the films. The patient has extensive involvement with nonresectable mass. She did, however, undergo a bronchoscopy today by Dr. Lind, cytology obtained. Again, cultures and the path are pending. The patient has also apparently lost about 30 pounds since July. PAST MEDICAL HISTORY: Includes hypothyroidism, hyperlipidemia. PAST SURGICAL HISTORY: Includes the bronchoscopy. ALLERGIES: ERYTHROMYCIN. HOME MEDICATIONS: 1. Levothyroxine. 2. Atorvastatin. FAMILY HISTORY: Father is from pneumonia. Mother from colon cancer. SOCIAL HISTORY: Positive for tobacco use, smoked for about 15 years. She says she quit about 10 years ago. No alcohol. No illicit drugs. REVIEW OF SYSTEMS: GENERAL: Generalized fatigue. HEENT: No blurred vision, hearing loss. RESPIRATORY: Positive for cough, some shortness of breath. CARDIOVASCULAR: No paroxysmal nocturnal dyspnea, no orthopnea. GASTROINTESTINAL: No diarrhea or vomiting. GENITOURINARY: No burning, frequency, urgency. NIGHT BAKER: No history of TIA, CVA or seizure disorder. ENDOCRINOLOGY: No history of diabetes. Positive for hypothyroidism. PHYSICAL EXAMINATION: VITAL SIGNS: Blood pressure 116/60, heart rate of 88, O2 saturation 93 on 1 liter. GENERAL: A very thin-appearing female, alert and oriented, in no acute distress. HEENT: Head is normocephalic, atraumatic. Pupils equal and reactive. Oral mucosa pink, moist. NECK: Supple. No JVD. HEART: Sounds S1, S2. Regular rate and rhythm. No audible rubs or gallops. LUNGS: Very diminished in the left upper and lower lobe. Audible breath sounds on the right. ABDOMEN: Soft, flat, nontender, no masses or organomegaly. EXTREMITIES: No cyanosis, clubbing, or any edema. LABORATORY DATA: Hemoglobin 12, hematocrit of 38, white cell count of 6.8, platelet count of 407. Sodium 136, potassium 3.7, BUN of 18, creatinine 0.48. INR 1.1. Pleural fluid showed no growth in 24 hours. Path is pending. chest x-ray post-thoracentesis showed consolidation involving the majority of the left long. No pneumothorax. IMPRESSION AND PLAN: This is a 72-year-old female with left lung mass with an extensive involvement including the left pulmonary vein extending into the left atrium. There is a right-lebron shift of the mediastinum secondary to the mass. The mass is unresectable with extensive involvement. Recommendation is to wait for the bronchoscopy, cytology report and evaluation by Oncology for possible radiation therapy. At this time, no surgical intervention warranted at this time per Cardiovascular Surgery. AIXA Michelle MD JRT/MAYA , 04:17 PM , 04:57 PM
[2018-02-08 20:00] VITALS: BP 95/54; PULSE 100; RESP 16; TEMP 97.4; O2SAT 94
[2018-02-08] MEDS: ATORVASTATIN 20 MG TAB PO SCH (22:13)
--- NOTE | 2018-02-08 22:44 | EKG ---
Date Performed: 02/07/2018 Time Performed: 13:36:31 PTAGE: 72 years EKG: SINUS TACHYCARDIA POSSIBLE RIGHT VENTRICULAR CONDUCTION DELAY SEPTAL MYOCARDIAL INFARCTION ABNORMAL ECG WARNING: DATA QUALITY MAY AFFECT INTERPRETATION NO PREVIOUS TRACING DOCTOR: Uriel Mcfarlane Interpretating Date/Time 02/08/2018 22:43:44
[2018-02-09] VITALS: BP 98/56; PULSE 100; RESP 17; TEMP 97.2; O2SAT 95
[2018-02-09] MEDS: LEVOTHYROXINE SODIUM 100 MCG TAB PO SCH (06:18)
[2018-02-09 08:00] VITALS: BP 98/59; PULSE 114; RESP 17; TEMP 98.5; O2SAT 94
[2018-02-09] MEDS: DOCUSATE SODIUM 50 MG/SENNA 8.6 MG TAB PO SCH (08:57)
--- NOTE | 2018-02-09 10:38 | HHI.PR ---
Subjective Remarks Follow up lung mass. Patient has no complaints at this time. Denies chest pain, dyspnea, nausea, vomiting. Has been ambulating without oxygen. Wants to go home. Objective Vitals Vital Signs Date Time Temp Pulse Resp B/P (MAP) Pulse Ox O2 Delivery O2 Flow Rate FiO2 02/09/18 08:40 Nasal Cannula 2.00 02/09/18 08:00 98.5 114 17 98/59 (72) 94 02/09/18 00:00 97.2 100 17 98/56 (70) 95 02/08/18 22:20 Nasal Cannula 1.00 02/08/18 20:00 97.4 100 16 95/54 (68) 94 02/08/18 16:00 97.8 108 19 101/60 (74) 93 02/08/18 15:18 93 Nasal Cannula 1.00 02/08/18 12:00 97.6 88 19 115/57 (76) 96 02/08/18 10:45 96 Nasal Cannula 2.00 I/O 02/08/18 02/08/18 02/08/18 02/09/18 02/09/18 02/09/18 07:00 15:00 23:00 07:00 15:00 23:00 Intake Total 0 ml 1500 ml 240 ml Balance 0 ml 1500 ml 240 ml Intake Oral 0 ml 1500 ml 240 ml # Voids 2 4 2 Result Diagram: 02/07/18 1318 02/08/18 0711 Imaging Last Impressions Chest X-Ray 02/07/18 2315 Signed Impressions: Service Date/Time: Wednesday, February 07, 2018 23:18 - CONCLUSION: Unchanged cardiomegaly and left lung infiltrate. No pneumothorax. Richard Anne Jr., MD Thoracentesis Ultrasound 02/07/18 0000 Signed Impressions: Service Date/Time: Wednesday, February 07, 2018 15:20 - CONCLUSION: Uncomplicated ultrasound guided thoracentesis. Marquez Fitzgerald MD Abdomen/Pelvis CT 02/07/18 0000 Signed Impressions: Service Date/Time: Wednesday, February 07, 2018 22:18 - CONCLUSION: 1. Several tiny low density lesions involving the liver with a 17 mm dominant lesion within the right lobe. These are poorly characterized given their small size. I cannot exclude metastatic lesions. Consideration could be made to an MRI of the liver to further evaluate. 2. Partial visualization of a large left pleural effusion. 3. 3 rim calcified cysts involving the spleen. Richard Anne Jr., MD Objective Remarks General: No acute distress. Heart: Regular rate and rhythm. No murmur. Lungs: Decreased breath sounds on the left, improving. Breathing is nonlabored. Abdomen: Soft, nontender, nondistended. Extremities: No lower extremity edema. Psych: Alert and oriented. Neuro: Normal speech. No focal deficits noted. Procedures 02/07/18 thoracentesis 02/08/18 bronchoscopy Urinary Catheter: No Vascular Central Line Catheter: No A/P Problem List: (1) Mass of left lung ICD Code: R91.8 - Other nonspecific abnormal finding of lung field Status: Acute (2) Pleural effusion ICD Code: J90 - Pleural effusion, not elsewhere classified Status: Acute (3) Dyspnea ICD Code: R06.00 - Dyspnea, unspecified Status: Acute Assessment and Plan 1. Lung mass: Concerning for malignancy. Appreciate pulmonology recommendations. Status post bronchoscopy. Pathology is pending. CT surgery states this mass is non-operative. Oncology consultation is pending. 2. Pleural effusion: Diagnostic/therapeutic ultrasound-guided thoracentesis done. Cytology pending. 3. Hypothyroidism: Continue Synthroid. 4. Dyslipidemia: Continue statin. 5. DVT prophylaxis: KASANDRA Alba. Discharge Planning Plan for discharge home when cleared by oncology. Problem Qualifiers (1) Dyspnea: Qualified Codes: R06.09 - Other forms of dyspnea Samy Hamilton MD February 09, 2018 10:38
[2018-02-09 12:00] VITALS: BP 91/51; PULSE 100; RESP 18; TEMP 98.2; O2SAT 93
[2018-02-09 13:09] LABS: AMYLASE BODY FLUID 68 U/L; AMYLASE BODY FLUID TYPE PLEURAL
[2018-02-09 16:00] VITALS: BP 92/55; PULSE 104; RESP 19; TEMP 97.7; O2SAT 91
--- NOTE | 2018-02-09 17:28 | HHI.PR ---
Subjective Remarks ALERT NO SOB Objective Vital Signs Date Time Temp Pulse Resp B/P (MAP) Pulse Ox O2 Delivery O2 Flow Rate FiO2 02/09/18 12:00 98.2 100 18 91/51 (64) 93 02/09/18 09:30 Room Air 02/09/18 08:40 Nasal Cannula 2.00 02/09/18 08:00 98.5 114 17 98/59 (72) 94 02/09/18 00:00 97.2 100 17 98/56 (70) 95 02/08/18 22:20 Nasal Cannula 1.00 02/08/18 20:00 97.4 100 16 95/54 (68) 94 I/O 02/08/18 02/08/18 02/08/18 02/09/18 02/09/18 02/09/18 07:00 15:00 23:00 07:00 15:00 23:00 Intake Total 0 ml 1500 ml 240 ml Balance 0 ml 1500 ml 240 ml Intake Oral 0 ml 1500 ml 240 ml # Voids 2 4 2 Result Diagram: 02/07/18 1318 02/08/18 0711 Objective Remarks GENERAL: SKIN: Warm and dry. HEAD: Atraumatic. Normocephalic. EYES: Pupils equal and round. No scleral icterus. No injection or drainage. ENT: No nasal bleeding or discharge. Mucous membranes pink and moist. NECK: Trachea midline. No JVD. CARDIOVASCULAR: Regular rate and rhythm. RESPIRATORY: No accessory muscle use. Clear to auscultation. Breath sounds equal bilaterally. GASTROINTESTINAL: Abdomen soft, non-tender, nondistended. Hepatic and splenic margins not palpable. MUSCULOSKELETAL: Extremities without clubbing, cyanosis, or edema. No obvious deformities. NEUROLOGICAL: Awake and alert. No obvious cranial nerve deficits. Motor grossly within normal limits. Five out of 5 muscle strength in the arms and legs. Normal speech. PSYCHIATRIC: Appropriate mood and affect; insight and judgment normal. Assessment and Plan Assessment and Plan LUNG MASS CA SUSPECT L PLEURAL EFFUSION doing well post bronchoscopy PLAN check pathology Lelo Lind MD February 09, 2018 17:28
--- NOTE | 2018-02-09 18:22 | HHI.DCPOC ---
Discharge Care Plan Diagnosis: (1) Dyspnea (2) Pleural effusion (3) Mass of left lung Goals to Promote Your Health * To prevent worsening of your condition and complications * To maintain your health at the optimal level Directions to Meet Your Goals Take your medications as prescribed Follow your dietary instruction Follow activity as directed Keep your appointments as scheduled Take your immunizations and boosters as scheduled If your symptoms worsen call your PCP, if no PCP go to Urgent Care Center or Emergency Room Smoking is Dangerous to Your Health. Avoid second hand smoke Call the 24-hour hour crisis hotline for domestic abuse at Samy Hamilton MD February 09, 2018 18:22
--- NOTE | 2018-02-10 13:11 | MB ---
cc: Vonnie Hale MD DATE: 02/09/2018 CHIEF COMPLAINT: Imaging suspicious for lung malignancy. HISTORY OF PRESENT ILLNESS: Ms. Alford is a 72-year-old lady with a history of hyperlipidemia and hypothyroidism, who was admitted to the hospital on 02/07/2018 with shortness of breath. The patient reports that her shortness of breath had been present for several weeks; however, had been significantly and progressively worsening, especially over the past week. She was seen by her primary college and career counselor, Dr. Clements, who ordered a chest x-ray. The chest x-ray returned abnormal. She presented to the emergency room. Chest x-ray showed large left pleural effusion, underlying parenchymal consolidation in the lower lobe and/or lingula and recommended CT scan with contrast for further evaluation. CT scan with contrast showed left upper lobe mass measuring approximately 12.6 x 10 x 10.8 cm that obstructs left upper lobe bronchus near its origin and abuts the pleura anteriorly and invades the mediastinum. It additionally encased the left main pulmonary vein and causes luminal narrowing. The mass grows into the left pulmonary vein and extends into the left atrium. There is compressive atelectasis of the left lower lobe secondary to the large left pleural effusion. The right aerated lung demonstrates moderate to severe emphysema. No pneumothorax is present. CT scan of the abdomen and pelvis showed several tiny low density lesions involving the liver with a 17 mm dominant lesion within the right lobe. These are poorly characterized. Given their small size, cannot exclude metastatic lesions. Also noted was 3 rim calcified cysts involving the spleen. While inpatient, she was evaluated by the pulmonology team and underwent a bronchoscopy. She had her bronchoscopy on 02/08/[address] Lind. The mass was found in the left main bronchus at the bifurcation of the left upper and lower lobes. Biopsies and washings were taken. She was also seen by the CT surgery team and no surgical intervention was recommended at that time. REVIEW OF SYSTEMS: As above in the HPI. All other review of systems negative. PAST MEDICAL HISTORY: 1. Hyperlipidemia. 2. Hypothyroidism. PAST SURGICAL HISTORY: Tonsillectomy. HOME MEDICATIONS: Include Pepcid, atorvastatin, and Synthroid. ALLERGIES: ERYTHROMYCIN. FAMILY HISTORY: Mother with history of colon cancer in her 80s. SOCIAL HISTORY: The patient quit smoking 13 years ago, smoked 1 to 1-1/2 packs a day for 15-20 years. No alcohol or illegal drug use. PHYSICAL EXAMINATION: GENERAL: Well-developed, well-nourished lady, in no distress. HEAD: Normocephalic, atraumatic. EENT: Pupils equal, round and reactive to light and accommodation. Extraocular muscles intact. No scleral icterus. CARDIOVASCULAR: Regular rate and rhythm with no murmurs. RESPIRATORY: Lungs clear to auscultation bilaterally. ABDOMEN: Soft, nontender, nondistended. Bowel sounds present. EXTREMITIES: No edema. PSYCHIATRIC: Appropriate mood and affect. NEUROLOGIC: Grossly nonfocal. Alert and oriented x 3. ASSESSMENT AND PLAN: Lung mass associated with pleural effusion, highly suspicious for malignancy. Pathology results are pending. Once these results return, we will have the patient return to clinic and discuss further treatment options. She will also need to have an MRI of the liver, as well as an MRI of the brain. Discussed this with patient. She wishes to pursue this in the outpatient setting. She is cleared from the oncologic standpoint to go home and will arrange for close followup in clinic. MD TEE Stephenson/MYRIAM , 12:27 PM , 01:10 PM MTDAdelaide
== END 2018-02-09 19:11 | disposition home or self-care (01) | DRG 204 ==
LOC: NEPC 12:34 → NEDA 14:21 → N07A 16:36
PROVIDERS: ADMIT Family Medicine; ATTEND Family Medicine
PROC: 0W9B3ZZ Drainage of Left Pleural Cavity, Percutaneous Approach (ICD-10-PCS; 2018-02-06)
PROC: 0BDJ8ZX Extraction of Left Lower Lung Lobe, Via Natural or Artificial Opening Endoscopic, Diagnostic (ICD-10-PCS; principal; 2018-02-08)
PROC: 0BDG8ZX Extraction of Left Upper Lung Lobe, Via Natural or Artificial Opening Endoscopic, Diagnostic (ICD-10-PCS; 2018-02-08)
PROC: 0BD78ZX Extraction of Left Main Bronchus, Via Natural or Artificial Opening Endoscopic, Diagnostic (ICD-10-PCS; 2018-02-08)
DX: R91.8 Other nonspecific abnormal finding of lung field (principal); J90 Pleural effusion, not elsewhere classified; R06.00 Dyspnea, unspecified; J98.11 Atelectasis; R00.1 Bradycardia, unspecified; J40 Bronchitis, not specified as acute or chronic; E78.00 Pure hypercholesterolemia, unspecified; E78.5 Hyperlipidemia, unspecified; J43.9 Emphysema, unspecified; E03.9 Hypothyroidism, unspecified; Z80.0 Family history of malignant neoplasm of digestive organs; Z87.891 Personal history of nicotine dependence
CPT/HCPCS: 31625; 32555; 36600; 71045; 74177; 80048; 80053; 82150; 82550; 82805; 82945; 83615; 83735; 83880; 84157; 84484; 85025; 85610; 85730; 87070; 87205; 88112; 88305; 89051; 93005; 94618; C1729; J2250; J2270; Q9963; Q9967

== ENCOUNTER 2018-02-22 07:37 | Inpatient (IN) | payer MEDICARE, BC ==
[2018-02-22] VITALS (16 sets, daily range): BP systolic 94–153; BP diastolic 63–97; PULSE 72–133; RESP 15–28; TEMP 97.6–99; O2SAT 91–100
[~2018-02-22] VITALS: Ht 165.1 cm; Wt 47.2 kg
[~2018-02-22 07:37] MED LIST changes: -DIPH25CA PO; -FAMO1TAB37 PO; -PRED20 PO
[2018-02-22] MEDS ORDERED: SODIUM CHLORIDE 0.9% FLUSH 10 ML FLUSH IVF PRN (08:00)
--- NOTE | 2018-02-22 08:16 | PD ---
HPI Chief Complaint: Respiratory Symptoms Time Seen by Provider: 07:56 Travel History International Travel<30 days: No Contact w/Intl Traveler<30days: No Traveled to known affect area: No History of Present Illness HPI Patient states that she had onset of shortness of breath got worse last night continued on today. She was supposed to have a functional breathing test today as well as a PET scan outpatient, additionally the patient was admitted 2 weeks ago after she was recently diagnosed with lung cancer and she had upper almost 2 L of fluid drained out of her left pleural space. The patient stated that although a biopsy was performed 2 weeks ago that it was not enough and they were unable to diagnose her stager. And so she has not had any chemo or radiation started. She had her follow-up appointment with her oncologist Dr. Hale tomorrow Stated allergy to erythromycin Past medical history significant for hypothyroidism, tonsillectomy, hypercholesterolemia, tubal ligation, claustrophobia, and quit 13 years ago tobacco use, diagnosed with lung CA recently PFSH Past Medical History Cancer: No Cardiovascular Problems: No High Cholesterol: Yes Diminished Hearing: No Endocrine: Yes Genitourinary: No Immune Disorder: No Musculoskeletal: No Neurologic: No Psychiatric: No Reproductive: No Respiratory: Yes Thyroid Disease: Yes Influenza Vaccination: No : 4 Para: 4 Tubal Ligation: Yes Past Surgical History Tonsillectomy: Yes Social History Alcohol Use: No Tobacco Use: No (quit 13 years ago) Substance Use: No Allergies-Medications (Allergen,Severity, Reaction): Coded Allergies: erythromycin base (Verified Allergy, Intermediate, 02/07/18) Reported Meds & Prescriptions Reported Meds & Active Scripts Active Reported Atorvastatin (Atorvastatin Calcium) 20 Mg Tab 20 Mg PO HS Levothyroxine (Levothyroxine Sodium) 100 Mcg Tab 100 Mcg PO DAILY Review of Systems General / Constitutional: No: Fever Eyes: No: Visual changes HENT: No: Headaches Cardiovascular: No: Chest Pain or Discomfort Respiratory: Positive: Shortness of Breath Gastrointestinal: No: Abdominal Pain Genitourinary: No: Dysuria Musculoskeletal: No: Pain Skin: No Rash Neurologic: No: Weakness Psychiatric: No: Depression Endocrine: No: Polydipsia Hematologic/Lymphatic: No: Easy Bruising Physical Exam Narrative GENERAL: SKIN: Warm and dry. HEAD: Atraumatic. Normocephalic. EYES: Pupils equal and round. No scleral icterus. No injection or drainage. ENT: No nasal bleeding or discharge. Mucous membranes pink and moist. NECK: Trachea midline. No JVD. CARDIOVASCULAR: Regular rate and rhythm. RESPIRATORY: No accessory muscle use. Clear to auscultation. Breath sounds equal bilaterally. GASTROINTESTINAL: Abdomen soft, non-tender, nondistended. Hepatic and splenic margins not palpable. MUSCULOSKELETAL: Extremities without clubbing, cyanosis, or edema. No obvious deformities. NEUROLOGICAL: Awake and alert. No obvious cranial nerve deficits. Motor grossly within normal limits. Five out of 5 muscle strength in the arms and legs. Normal speech. PSYCHIATRIC: Appropriate mood and affect; insight and judgment normal. Data Data Last Documented VS Vital Signs Date Time Temp Pulse Resp B/P (MAP) Pulse Ox O2 Delivery O2 Flow Rate FiO2 02/22/18 07:54 121 24 141/89 (106) 97 02/22/18 07:49 Room Air 02/22/18 07:41 97.6 Orders Orders Electrocardiogram (02/22/18 07:56) B-Type Natriuretic Peptide (02/22/18 07:56) Ckmb (Isoenzyme) Profile (02/22/18 07:56) Complete Blood Count With Diff (02/22/18 07:56) Comprehensive Metabolic Panel (02/22/18 07:56) Prothrombin Time / Inr (Pt) (02/22/18 07:56) Act Partial Throm Time (Ptt) (02/22/18 07:56) Troponin I (02/22/18 07:56) Lipase (02/22/18 07:56) Ecg Monitoring (02/22/18 07:56) Bilateral Bp Monitoring (02/22/18 07:56) Iv Access Insert/Monitor (02/22/18 07:56) Oximetry (02/22/18 07:56) Sodium Chloride 0.9% Flush (Ns Flush) (02/22/18 08:00) Chest, Pa & Lat (02/22/18 07:56) Labs Laboratory Tests Test 02/22/18 08:00 White Blood Count 8.2 TH/MM3 Red Blood Count 5.33 MIL/MM3 Hemoglobin 12.6 GM/DL Hematocrit 38.9 % Mean Corpuscular Volume 73.0 FL Mean Corpuscular Hemoglobin 23.6 PG Mean Corpuscular Hemoglobin Concent 32.3 % Red Cell Distribution Width 17.4 % Platelet Count 391 TH/MM3 Mean Platelet Volume 7.4 FL Neutrophils (%) (Auto) 80.4 % Lymphocytes (%) (Auto) 12.2 % Monocytes (%) (Auto) 5.2 % Eosinophils (%) (Auto) 1.2 % Basophils (%) (Auto) 1.0 % Neutrophils # (Auto) 6.6 TH/MM3 Lymphocytes # (Auto) 1.0 TH/MM3 Monocytes # (Auto) 0.4 TH/MM3 Eosinophils # (Auto) 0.1 TH/MM3 Basophils # (Auto) 0.1 TH/MM3 CBC Comment DIFF FINAL Differential Comment Prothrombin Time 10.5 SEC Prothromb Time International Ratio 1.0 RATIO Activated Partial Thromboplast Time 29.0 SEC Blood Urea Nitrogen 15 MG/DL Creatinine 0.71 MG/DL Random Glucose 77 MG/DL Total Protein 7.6 GM/DL Albumin 2.9 GM/DL Calcium Level 9.2 MG/DL Alkaline Phosphatase 108 U/L Aspartate Amino Transf (AST/SGOT) 25 U/L Alanine Aminotransferase (ALT/SGPT) 14 U/L Total Bilirubin 0.4 MG/DL Sodium Level 139 MEQ/L Potassium Level 3.6 MEQ/L Chloride Level 103 MEQ/L Carbon Dioxide Level 20.9 MEQ/L Anion Gap 15 MEQ/L Estimat Glomerular Filtration Rate 81 ML/MIN Total Creatine Kinase 38 U/L Troponin I LESS THAN 0.02 NG/ML B-Type Natriuretic Peptide 85 PG/ML Lipase 75 U/L MDM Medical Decision Making Medical Screen Exam Complete: Yes Emergency Medical Condition: Yes Medical Record Reviewed: Yes Differential Diagnosis Patient was evaluated and seen on February 07, 2018 at which time the patient had a chest x-ray which was read by radiologist as unchanged cardiomegaly and left lung infiltrate without pneumothorax Patient also had a CAT scan abdomen and pelvis which is read by radiologist as multiple low-density lesions in of the liver consistent or possibly related to metastatic lesions, large left pleural effusion, and 3 calcified cysts involving the spleen. The patient had a ultrasound-guided thoracentesis of the left lung wolf, a total of 1800 cc of fluid were obtained. Narrative Course Patient CBC does not show any leukocytosis, no left shift, no anemia, and normal platelet count. Coagulation profile is within normal limits Electrolytes are all within normal limits, normal kidney liver and pancreatic functions. First set of cardiac enzymes are negative Chest x-ray read by radiologist as large left pleural effusion Louie Johnson MD February 22, 2018 08:16
[2018-02-22 08:23] LABS: AUTOMATED NEUTROPHIL # 6.6 TH/MM3 (1.8-7.7); BASOPHIL # 0.1 TH/MM3 (0-0.2); EOSINOPHIL # 0.1 TH/MM3 (0-0.4); EOSINOPHIL % 1.2 % (0.0-4.0); HEMATOCRIT 38.9 % (35.0-46.0); HEMOGLOBIN 12.6 GM/DL (11.6-15.3); LYMPH % 12.2 % (9.0-44.0); MEAN CORPUSCULAR HEMOGLOBIN 23.6 PG (27.0-34.0); MEAN CORPUSCULAR HGB CONC 32.3 % (32.0-36.0); MEAN PLATELET VOLUME 7.4 FL (7.0-11.0); MONO % 5.2 % (0.0-8.0); MONOCYTE # 0.4 TH/MM3 (0-0.9); NEUT % 80.4 % (16.0-70.0); PLATELET COUNT 391 TH/MM3 (150-450); RED BLOOD COUNT 5.33 MIL/MM3 (4.00-5.30); RED CELL DISTRIBUTION WIDTH 17.4 % (11.6-17.2); WHITE BLOOD COUNT 8.2 TH/MM3 (4.0-11.0)
[2018-02-22 08:33] LABS: PROTHROMBIN TIME - PATIENT 10.5 SEC (9.8-11.6)
--- NOTE | 2018-02-22 08:39 | RADRPT ---
EXAM DATE: 02/22/2018 8:33 AM EDT AGE/SEX: 72 years / Female INDICATIONS: Increased shortness of breath. Diagnosed with lung cancer two weeks ago. CLINICAL DATA: This is the patient's initial encounter. Patient reports that signs and symptoms have been present for 1 day and indicates a pain score of 0/10. MEDICAL/SURGICAL HISTORY: Carcinoma, lung. Hypercholesterolemia. Hypothyroidism. . Tonsillecto my. COMPARISON: [facility] – [place], CT ABDOMEN & PELVIS W CONTRAST, 02/07/2018. . FINDINGS: Large left pleural effusion with compressive atelectasis left base. Right lung clear. Prominent cardi omegaly. Large calcified hepatic cyst again noted. CONCLUSION: Large left pleural effusion. Findings are similar to 02/08/2008. Electronically signed by: Holger Fitzgerald MD 02/22/2018 8:38 AM EDT
[2018-02-22 08:45] LABS: ALBUMIN 2.9 GM/DL (3.4-5.0); ALT (GPT) 14 U/L (10-53); AST (GOT) 25 U/L (15-37); BICARBONATE 20.9 MEQ/L (21.0-32.0); BLOOD UREA NITROGEN 15 MG/DL (7-18); CALCIUM 9.2 MG/DL (8.5-10.1); CHLORIDE 103 MEQ/L (98-107); CREATININE 0.71 MG/DL (0.50-1.00); GLOMERULAR FILTRATION RATE 81 ML/MIN (>89); GLUCOSE,RANDOM 77 MG/DL (74-106); SODIUM (NA) 139 MEQ/L (136-145)
[2018-02-22 08:49] LABS: ALKALINE PHOSPHATASE 108 U/L (45-117); TOTAL BILIRUBIN ADULT 0.4 MG/DL (0.2-1.0); TOTAL PROTEIN 7.6 GM/DL (6.4-8.2); TROPONIN I LESS THAN 0.02 NG/ML (0.02-0.05)
[2018-02-22] MEDS ORDERED: ONDANSETRON ODT 4 MG TAB PO ONE ×2 (10:30→13:15)
--- NOTE | 2018-02-22 11:18 | HHI.HP ---
[facility] Primary Care Physician Jody Clements MD Admission Diagnosis DYSPNEA DUE TO LARGE LEFT PLEURAL EFFUSION Diagnoses: Chief Complaint: Shortness of breath Travel History International Travel<30 Days: No Contact w/Intl Traveler <30 Da: No Traveled to Known Affected Are: No History of Present Illness 72-year-old white female being admitted for shortness of breath Patient was in her usual state of health until sometime yesterday when she developed a gradual onset of worsening shortness of breath. There were no alleviating or exacerbating factors. Shortness of breath persisted to even being at rest and this morning progressed in intensity and thus decided come to the emergency department. In the emergency department she had a chest x-ray done which showed a recurring pleural effusion on the left lung which I independently reviewed which occupies almost 2/3 of the left lung. ED physician relayed to me that he spoke with the patient's oncologist who recommended biopsy. Patient does endorse having some nausea but no vomiting. Denies any nausea vomiting fevers chills or chest pain. Says her appetite is doing well. Patient originally was scheduled for an outpatient PET scan and possible PFT tests today for her left lung mass; however due to her worsening symptoms she cannot make it to the appointments and came to the emergency department. Patient had a bronchoscopy done with cytology of the left lung main bronchus mass which did not show any malignant cells but oncology suspects that this was either a false negative/or inadequate specimen. CT abdomen from before shows lesions on the liver of which they could not exclude metastatic lesions. Review of Systems Except as stated in HPI: all other systems reviewed are Neg Past Family Social History Past Medical History Pleural effusion Hypercholesterolemia Hypothyroidism Past Surgical History bronchoscopy and thoracentesis within last 30 days Allergies: Coded Allergies: erythromycin base (Verified Allergy, Intermediate, 02/07/18) Family History Nothing remarkable per patient Social History Smoking which she quit 13 years ago, retired, used to work in restaurants Physical Exam Vital Signs Vital Signs Date Time Temp Pulse Resp B/P (MAP) Pulse Ox O2 Delivery O2 Flow Rate FiO2 02/22/18 10:00 118 20 125/88 (100) 97 02/22/18 09:00 121 22 115/80 (92) 97 02/22/18 07:54 121 24 141/89 (106) 97 02/22/18 07:49 124 25 97 Room Air 02/22/18 07:49 111 15 104/75 (85) 98 Room Air 108/85 (93) 02/22/18 07:41 97.6 133 28 153/91 (111) 97 Physical Exam VS: afebrile GENERAL: Sitting up in bed, awake, alert, no acute distress SKIN: Warm and dry. EYES: No scleral icterus. No injection or drainage. ENT: No nasal bleeding or discharge. Mucous membranes pink and moist. CARDIOVASCULAR: Regular rate and rhythm. no murmurs RESPIRATORY: No accessory muscle use. Clear to auscultation. Breath sounds equal bilaterally. GASTROINTESTINAL: Abdomen soft, non-tender, nondistended. Extremities: No clubbing, cyanosis, or edema. No obvious deformities. MUSCULOSKELETAL: adequate muscle bulk and tone for age and habitus NEUROLOGICAL: Awake and alert. No obvious cranial nerve deficits. No facial droop nor slurred speech noted. PSYCHIATRIC: Appropriate mood and affect; insight and judgment normal. Laboratory Laboratory Tests Test 02/22/18 08:00 White Blood Count 8.2 Red Blood Count 5.33 Hemoglobin 12.6 Hematocrit 38.9 Mean Corpuscular Volume 73.0 Mean Corpuscular Hemoglobin 23.6 Mean Corpuscular Hemoglobin Concent 32.3 Red Cell Distribution Width 17.4 Platelet Count 391 Mean Platelet Volume 7.4 Neutrophils (%) (Auto) 80.4 Lymphocytes (%) (Auto) 12.2 Monocytes (%) (Auto) 5.2 Eosinophils (%) (Auto) 1.2 Basophils (%) (Auto) 1.0 Neutrophils # (Auto) 6.6 Lymphocytes # (Auto) 1.0 Monocytes # (Auto) 0.4 Eosinophils # (Auto) 0.1 Basophils # (Auto) 0.1 CBC Comment DIFF FINAL Differential Comment Prothrombin Time 10.5 Prothromb Time International Ratio 1.0 Activated Partial Thromboplast Time 29.0 Blood Urea Nitrogen 15 Creatinine 0.71 Random Glucose 77 Total Protein 7.6 Albumin 2.9 Calcium Level 9.2 Alkaline Phosphatase 108 Aspartate Amino Transf (AST/SGOT) 25 Alanine Aminotransferase (ALT/SGPT) 14 Total Bilirubin 0.4 Sodium Level 139 Potassium Level 3.6 Chloride Level 103 Carbon Dioxide Level 20.9 Anion Gap 15 Estimat Glomerular Filtration Rate 81 Total Creatine Kinase 38 Troponin I LESS THAN 0.02 B-Type Natriuretic Peptide 85 Lipase 75 Result Diagram: 02/22/18 0800 02/22/18 0800 Imaging Last Impressions Chest X-Ray 02/22/18 0756 Signed Impressions: CONCLUSION: Large left pleural effusion. Findings are similar to 02/08/2008. Caprini VTE Risk Assessment Caprini VTE Risk Assessment: Mod/High Risk (score >= 2) VTE Pharm Contraindication: Documented Caprini Risk Assessment Model Point Value = 1 Point Value = 2 Point Value = 3 Point Value = 5 Age 41-60 Minor surgery BMI > 25 kg/m2 Swollen legs Varicose veins or History of unexplained or recurrent spontaneous Oral contraceptives or hormone replacement Sepsis (< 1 month) Serious lung disease, including pneumonia (< 1 month) Abnormal pulmonary function Acute myocardial infarction Congestive heart failure (< 1 month) History of inflammatory bowel disease Medical patient at bed rest Age 61-74 Arthroscopic surgery Major open surgery (> 45 min) Laparoscopic surgery (> 45 min) Malignancy Confined to bed (> 72 hours) Immobilizing plaster cast Central venous access Age >= 75 History of VTE Family history of VTE Factor V Leiden Prothrombin [id number] Lupus anticoagulant Anticardiolipin antibodies Elevated serum homocysteine Heparin-induced thrombocytopenia Other congenital or acquired thrombophilia Stroke (< 1 month) Elective arthroplasty Hip, pelvis, or leg fracture Acute spinal cord injury (< 1 month) Prophylaxis Regimen Total Risk Factor Score Risk Level Prophylaxis Regimen 0-1 Low Early ambulation 2 Moderate Order ONE of the following: *Sequential Compression Device (SCD) *Heparin 5000 units SQ BID 3-4 Higher Order ONE of the following medications: *Heparin 5000 units SQ TID *Enoxaparin/Lovenox 40 mg SQ daily (WT < 150 kg, CrCl > 30 mL/min) *Enoxaparin/Lovenox 30 mg SQ daily (WT < 150 kg, CrCl > 10-29 mL/min) *Enoxaparin/Lovenox 30 mg SQ BID (WT < 150 kg, CrCl > 30 mL/min) AND/OR *Sequential Compression Device (SCD) 5 or more Highest Order ONE of the following medications: *Heparin 5000 units SQ TID (Preferred with Epidurals) *Enoxaparin/Lovenox 40 mg SQ daily (WT < 150 kg, CrCl > 30 mL/min) *Enoxaparin/Lovenox 30 mg SQ daily (WT < 150 kg, CrCl > 10-29 mL/min) *Enoxaparin/Lovenox 30 mg SQ BID (WT < 150 kg, CrCl > 30 mL/min) AND *Sequential Compression Device (SCD) Assessment and Plan Assessment and Plan 72-year-old white female admitted for recurring pleural effusion SOB - likely 2/2 effusion, stable resp status at this time, monitor Pleural effusion -Recurring based upon previous admission, discussed with oncology, left sided thoracentesis and CT-guided biopsy of the left lung bronchus mass. Initial CT was performed as an outpatient [facility]. -Consulting oncology Continue home Synthroid and Lipitor SCDs, hold off on lovenox given anticipated procedures Physician Certification 2 Midnight Certification Type: Admission for Inpatient Services Order for Inpatient Services The services are ordered in accordance with Medicare regulations or non- Medicare payer requirements, as applicable. In the case of services not specified as inpatient-only, they are appropriately provided as inpatient services in accordance with the 2-midnight benchmark. Estimated LOS (days): 3 3 days is the estimated time the patient will need to remain in the hospital, assuming treatment plan goals are met and no additional complications. Post-Hospital Plan: Not yet determined Mark Ricci MD February 22, 2018 11:18
--- NOTE | 2018-02-22 13:55 | EKG ---
Date Performed: 02/22/2018 Time Performed: 08:33:42 PTAGE: 72 years EKG: SINUS TACHYCARDIA LOW QRS VOLTAGE IN PRECORDIAL LEADS ABNORMAL RHYTHM ECG PREVIOUS TRACING : 02/07/2018 13.36 DOCTOR: Luis Zimmerman Interpretating Date/Time 02/22/2018 13:53:06
--- NOTE | 2018-02-22 14:05 | RADRPT ---
EXAM DATE: 02/22/2018 2:01 PM EDT AGE/SEX: 72 years / Female INDICATIONS: Post left thoracentesis. CLINICAL DATA: This is the patient's initial encounter. Patient reports that signs and symptoms have been present for 1 day and indicates a pain score of 2/10. MEDICAL/SURGICAL HISTORY: . Carcinoma, lung. Hypercholesterolemia. Hypothyroidism. None. COMPARISON: [facility] – [place], CHEST EXPIRATION ONLY, 02/07/2018. . FINDINGS: Interval reduction in the amount of effusion without pneumothorax. Large cardiac, pericardiac mass is evident. CONCLUSION: Negative for pneumothorax. Electronically signed by: Holger Fitzgerald MD 02/22/2018 2:04 PM EDT
[2018-02-22] MEDS ORDERED: LIDOCAINE HCL 1% PF 30 ML VIAL ONE (14:14)
--- NOTE | 2018-02-22 15:47 | RADRPT ---
EXAM DATE: 02/22/2018 1:54 PM EDT AGE/SEX: 72 years / Female INDICATIONS: Left pleural effusion. Dyspnea. CLINICAL DATA: This is the patient's subsequent encounter. Patient reports that signs and symptoms h ave been present for 2 weeks and indicates a pain score of 2/10. MEDICAL/SURGICAL HISTORY: Hypercholesterolemia. Thyroid disease. Dyspnea. Pleural effusion. To nsillectomy. Tubal ligation. Thoracentesis. COMPARISON: [facility] – [place], US GUIDED THORACENTESIS LEFT, 02/07/2018. . [facility], CT CHEST W/CO NTRAST, 02/06/2018 XR CHEST PA & LAT. 2018-02-07 FLUID: Total volume of 900 cc of mendoza fluid was removed. Fluid was discarded. Thoracentesis was therapeutic only. . . TECHNIQUE: Ultrasound guidance for thoracentesis. Thoracentesis. The risks, benefits, and alternatives to ultrasound guided thoracentesis were explained to the patien t in lay simple terms, including the risk of bleeding and infection. Written and verbal informed con sent was obtained. Appropriate area for left thoracentesis was marked under ultrasound guidance with the patient in the upright position. Overlying skin was prepped and draped in the usual sterile fashion and with local anesthetic, a dermatotomy was made with an 11 blade scalpel. A 6 Chadian thoracentesis catheter was p laced in the pleural space and fluid was removed. Catheter was then removed and a sterile dressing a pplied. There were no immediate complications. The patient tolerated the procedure well and the left the ultrasound suite in stable condition. Chest radiograph is to be obtained. CONCLUSION: 1. Uncomplicated left thoracentesis. Electronically signed by: Holger Fitzgerald MD 02/22/2018 3:45 PM EDT
--- NOTE | 2018-02-22 18:54 | MB ---
cc: Vonnie Hale MD, Tabitha N MD DATE: 02/22/2018 CHIEF COMPLAINT: 1. Lung mass, highly suspicious for malignancy. 2. Pleural effusion. HISTORY OF PRESENT ILLNESS: Ms. Alford is a 72-year-old lady with a past medical history significant for hyperlipidemia and hypothyroidism, who was admitted to the hospital today with worsening shortness of breath due to reaccumulation of pleural effusion. The patient was previously hospitalized from 02/07/2018 to 02/10/2018 with shortness of breath that had been progressively worsening over several weeks leading up to admission. Imaging studies revealed a large left pleural effusion and underlying parenchymal consolidation. CT scan showed a large left upper lobe mass measuring approximately 12.6 x 10 x 10.8 cm that obstructs the left upper lobe bronchus near its origin and abuts the pleura anteriorly and invades the mediastinum. It additionally encased the left main pulmonary vein and causes luminal narrowing. The mass grows into the left pulmonary vein and extends into the left atrium. There is compressive atelectasis of the left lower lobe secondary to the large effusion. She subsequently underwent a bronchoscopy under the direction of Dr. Lind. On his procedure notes, he noted significant obstruction in both upper and lower lobes, more so on the upper lobe with a fungating mass lesion within the lower left main bronchus. Washings, brushing and biopsies of the bifurcation area were sent. Unfortunately, this pathology returned as bronchial mucosa with mild edema and chronic inflammation. Cytology reports from the bronchus washings were sparsely cellular and negative for malignant cells and cytology reports from the pleural fluid was negative for any malignancy as well. She presents to the hospital again with shortness of breath. She underwent an uncomplicated left-sided thoracentesis where a total of 900 mL of mendoza fluid was removed. She reports that her symptoms have improved after this procedure. She is seen at bedside with her . REVIEW OF SYSTEMS: Positive as mentioned in the HPI. All other review of systems are negative. PAST MEDICAL HISTORY: 1. Lung mass suspicious for malignancy. 2. Hyperlipidemia. 3. Hypothyroidism. PAST SURGICAL HISTORY: Tonsillectomy. ALLERGIES: ERYTHROMYCIN. FAMILY HISTORY: Mother with a history of colon cancer in her 80s. SOCIAL HISTORY: She quit smoking 13 years ago. Prior to that, she smoked 1 to 1-1/2 packs a day for 15-20 years. She denies alcohol or illegal drug use. She has a good support system with her and children. PHYSICAL EXAMINATION: VITAL SIGNS: Temperature 98.3, pulse 103, respiratory rate 19, blood pressure 108/74, pulse oximetry is 95% on room air. GENERAL: Thin, chronically ill-appearing lady in no distress. HEENT: Head is normocephalic, atraumatic. Eyes: PERRLA, EOMI. No scleral icterus. NECK: Supple. No palpable lymphadenopathy. CHEST: Regular rate and rhythm with no murmurs. RESPIRATORY: Decreased breath sounds in the right lung base. ABDOMEN: Soft, nontender, nondistended with bowel sounds present. EXTREMITIES: With no edema. NEUROLOGIC: Grossly nonfocal. LABORATORY STUDIES: From admission, white blood cell count 8.2, hemoglobin 12.6 and platelet count 391,000. Chemistry studies with a creatinine of 0.71, normal liver function tests. ASSESSMENT AND PLAN: 1. Lung mass, highly suspicious for malignancy. PET/CT scan initially ordered in the outpatient setting. However, this was scheduled for today and she was admitted today. We will reschedule this when patient is discharged from the hospital. While inpatient, she will also have a CT-guided biopsy of the lung mass to enable nasal us to have tissue and to get a firm diagnosis and to enable us to move forward with treatment at that time. 2. Pleural effusion, status post drainage, most likely related to underlying lung mass. Inpatient oncology service will continue to follow. MD TEE Stephenson/ , 06:34 PM , 06:53 PM ANDREE
[2018-02-22] MEDS: ATORVASTATIN 20 MG TAB PO SCH (20:39)
[2018-02-23] VITALS (13 sets, daily range): BP systolic 86–107; BP diastolic 59–74; PULSE 92–104; RESP 16–18; TEMP 97.8–98.7; O2SAT 91–96
[2018-02-23] MEDS: LEVOTHYROXINE SODIUM 100 MCG TAB PO SCH (05:50)
[2018-02-23] MEDS ORDERED: NALOXONE HCL 0.4 MG/ML AMP IV PUSH PRN (12:00)
[2018-02-23] MEDS ORDERED: SODIUM CHLORIDE 0.9% FLUSH 10 ML FLUSH IV FLUSH PRN (12:00)
[2018-02-23] MEDS ORDERED: ACETAMINOPHEN 325 MG TAB PO PRN ×2 (12:00)
[2018-02-23] MEDS ORDERED: SENNOSIDES 8.6 MG TAB PO PRN (12:00)
[2018-02-23] MEDS ORDERED: ONDANSETRON ODT 4 MG TAB PO PRN (12:00)
[2018-02-23] MEDS ORDERED: oxyCODONE/ACETAMINOPHEN 5 MG/325 MG TAB PO PRN (12:00)
[2018-02-23] MEDS ORDERED: MAGNESIUM HYDROXIDE SUSP 30 ML CUP PO PRN (12:00)
[2018-02-23] MEDS ORDERED: MORPHINE SULFATE 4 MG/ML INJ IV PUSH PRN ×3 (12:00)
[2018-02-23] MEDS ORDERED: LACTULOSE SYRUP 20 GM/30 ML CUP PO PRN (12:00)
[2018-02-23] MEDS ORDERED: oxyCODONE/ACETAMINOPHEN 10 MG/325 MG TAB PO PRN (12:00)
[2018-02-23] MEDS ORDERED: METOCLOPRAMIDE HCL 10 MG/2 ML VIAL IV PUSH PRN (12:00)
[2018-02-23] MEDS ORDERED: BISACODYL 10 MG SUPP RECTAL PRN (12:00)
--- NOTE | 2018-02-23 12:38 | HHI.PR ---
Subjective Remarks 72-year-old white female being admitted for shortness of breath Patient was in her usual state of health until sometime yesterday when she developed a gradual onset of worsening shortness of breath. There were no alleviating or exacerbating factors. Shortness of breath persisted to even being at rest and this morning progressed in intensity and thus decided come to the emergency department. In the emergency department she had a chest x-ray done which showed a recurring pleural effusion on the left lung which I independently reviewed which occupies almost 2/3 of the left lung. ED physician relayed to me that he spoke with the patient's oncologist who recommended biopsy. Patient does endorse having some nausea but no vomiting. Denies any nausea vomiting fevers chills or chest pain. Says her appetite is doing well. Patient originally was scheduled for an outpatient PET scan and possible PFT tests today for her left lung mass; however due to her worsening symptoms she cannot make it to the appointments and came to the emergency department. Patient had a bronchoscopy done with cytology of the left lung main bronchus mass which did not show any malignant cells but oncology suspects that this was either a false negative/or inadequate specimen. CT abdomen from before shows lesions on the liver of which they could not exclude metastatic lesions. 02-23 HAD LEFT SIDED THORACENTESIS YESTERDAY SCHEDULED TO GO FOR BIOPSY OF LEFT LUNG TODAY WITH IR LEONIDES RENTERIA RN AND PT AND CM and family AM LABS AWAIT PATHOLOGY Objective Vitals Vital Signs Date Time Temp Pulse Resp B/P (MAP) Pulse Ox O2 Delivery O2 Flow Rate FiO2 02/23/18 10:40 104 02/23/18 08:00 97.8 102 16 96/67 (77) 93 02/23/18 04:46 98.0 98 16 92/68 (76) 92 02/23/18 04:00 104 02/23/18 00:00 92 02/22/18 23:48 98.1 93 17 94/63 (73) 91 02/22/18 20:34 98.0 107 16 104/67 (79) 92 02/22/18 20:00 109 02/22/18 16:44 98.3 103 19 108/74 (85) 95 02/22/18 15:40 98.6 81 16 110/74 (86) 100 02/22/18 15:10 02/22/18 14:13 104 18 110/73 (85) 97 Room Air 02/22/18 14:00 98.8 72 18 111/72 (85) 100 02/22/18 13:44 98.8 112 18 106/63 (77) 96 02/22/18 13:24 99.0 115 18 120/72 (88) 93 I/O 02/22/18 02/22/18 02/22/18 02/23/18 02/23/18 02/23/18 07:00 15:00 23:00 07:00 15:00 23:00 Intake Total 240 ml Output Total 440 ml Balance -200 ml Intake Oral 240 ml Output Urine Total 440 ml # Bowel Movements 1 Result Diagram: 02/22/18 0800 02/22/18 0800 Other Results Laboratory Tests Test 02/22/18 08:00 White Blood Count 8.2 TH/MM3 Red Blood Count 5.33 MIL/MM3 Hemoglobin 12.6 GM/DL Hematocrit 38.9 % Mean Corpuscular Volume 73.0 FL Mean Corpuscular Hemoglobin 23.6 PG Mean Corpuscular Hemoglobin Concent 32.3 % Red Cell Distribution Width 17.4 % Platelet Count 391 TH/MM3 Mean Platelet Volume 7.4 FL Neutrophils (%) (Auto) 80.4 % Lymphocytes (%) (Auto) 12.2 % Monocytes (%) (Auto) 5.2 % Eosinophils (%) (Auto) 1.2 % Basophils (%) (Auto) 1.0 % Neutrophils # (Auto) 6.6 TH/MM3 Lymphocytes # (Auto) 1.0 TH/MM3 Monocytes # (Auto) 0.4 TH/MM3 Eosinophils # (Auto) 0.1 TH/MM3 Basophils # (Auto) 0.1 TH/MM3 CBC Comment DIFF FINAL Differential Comment Prothrombin Time 10.5 SEC Prothromb Time International Ratio 1.0 RATIO Activated Partial Thromboplast Time 29.0 SEC Blood Urea Nitrogen 15 MG/DL Creatinine 0.71 MG/DL Random Glucose 77 MG/DL Total Protein 7.6 GM/DL Albumin 2.9 GM/DL Calcium Level 9.2 MG/DL Alkaline Phosphatase 108 U/L Aspartate Amino Transf (AST/SGOT) 25 U/L Alanine Aminotransferase (ALT/SGPT) 14 U/L Total Bilirubin 0.4 MG/DL Sodium Level 139 MEQ/L Potassium Level 3.6 MEQ/L Chloride Level 103 MEQ/L Carbon Dioxide Level 20.9 MEQ/L Anion Gap 15 MEQ/L Estimat Glomerular Filtration Rate 81 ML/MIN Total Creatine Kinase 38 U/L Troponin I LESS THAN 0.02 NG/ML B-Type Natriuretic Peptide 85 PG/ML Lipase 75 U/L Imaging Last Impressions Chest X-Ray 02/22/18 0756 Signed Impressions: CONCLUSION: Large left pleural effusion. Findings are similar to 02/08/2008. Thoracentesis Ultrasound 02/22/18 0000 Signed Impressions: CONCLUSION: 1. Uncomplicated left thoracentesis. Objective Remarks GENERAL: Awake alert and oriented 3 talkative and cooperative -thin appearing female SKIN: Warm and dry. HEAD: Atraumatic. Normocephalic. EYES: Pupils equal and round. No scleral icterus. No injection or drainage. Extraocular muscles intact wearing glasses ENT: No nasal bleeding or discharge. Mucous membranes pink and moist. Tongue is midline NECK: Trachea midline. No JVD. Supple CARDIOVASCULAR: Regular rate and rhythm. S1-S2 no S3 or S4 decreased breath sounds RESPIRATORY: No accessory muscle use. Clear to auscultation. Breath sounds equal bilaterally. Left side of the lungs GASTROINTESTINAL: Abdomen soft, non-tender, nondistended. Hepatic and splenic margins not palpable. MUSCULOSKELETAL: Extremities without clubbing, cyanosis, or edema. No obvious deformities. NEUROLOGICAL: Awake and alert. No obvious cranial nerve deficits. Motor grossly within normal limits. 4 out of 5 muscle strength in the arms and legs. Normal speech. PSYCHIATRIC: Appropriate mood and affect; insight and judgment normal. Procedures THORACENTESIS ON LEFT 02-22 Medications and IVs Current Medications Sodium Chloride (NS Flush) 2 ml UNSCH PRN IVF FLUSH AFTER USING IV ACCESS; Start 02/22/18 at 08:00; Stop 02/23/18 at 12:01; Status DC Ondansetron HCl (Zofran Odt) 4 mg ONCE ONCE PO Last administered on at 10:33; Start 02/22/18 at 10:30; Stop 02/22/18 at 10:31; Status DC Atorvastatin Calcium (Lipitor) 20 mg HS PO Last administered on 02/22/18at 20:39 ; Start 02/22/18 at 21:00 Levothyroxine Sodium (Synthroid) 100 mcg DAILY@0600 PO Last administered on at 05:50; Start 02/23/18 at 06:00 Ondansetron HCl (Zofran Odt) 4 mg ONCE ONCE PO Last administered on at 13:32; Start 02/22/18 at 13:15; Stop 02/22/18 at 13:24; Status DC Lidocaine HCl (Xylocaine-Mpf 1% Inj) 30 ml STK-MED ONCE .ROUTE Last administered on 02/22/18at 13:40; Start 02/22/18 at 14:14; Stop 02/22/18 at 14:15 ; Status DC Sodium Chloride (NS Flush) 2 ml UNSCH PRN IV FLUSH FLUSH AFTER USING IV ACCESS ; Start 02/23/18 at 12:00 Sodium Chloride (NS Flush) 2 ml BID IV FLUSH ; Start 02/23/18 at 21:00 Acetaminophen (Tylenol) 650 mg Q4H PRN PO TEMP > 100.4; Start 02/23/18 at 12:00 Ondansetron HCl (Zofran Odt) 4 mg Q6H PRN PO NAUSEA OR VOMITING; Start at 12:00 Metoclopramide HCl (Reglan Inj) 5 mg Q6H PRN IV PUSH NAUSEA OR VOMITING; Start 02/23/18 at 12:00 Zolpidem Tartrate (Ambien) 5 mg HS PRN PO INSOMNIA; Start 02/23/18 at 21:00 Acetaminophen (Tylenol) 650 mg Q6H PRN PO PAIN SCALE 1 TO 2; Start 02/23/18 at 12:00 Oxycodone/ Acetaminophen (Percocet 5-325 Mg) 1 tab Q6H PRN PO PAIN SCALE 3 TO 5; Start 02/23/18 at 12:00 Oxycodone/ Acetaminophen (Percocet 10-325 Mg) 1 tab Q6H PRN PO PAIN SCALE 6 TO 10; Start 02/23/18 at 12:00 Morphine Sulfate (Morphine Inj) 2 mg Q3H PRN IV PUSH Pain 3-5; if unable to take PO; Start 02/23/18 at 12:00 Morphine Sulfate (Morphine Inj) 4 mg Q3H PRN IV PUSH Pain 6-10;if unable to take PO; Start 02/23/18 at 12:00 Morphine Sulfate (Morphine Inj) 4 mg Q3H PRN IV PUSH BREAKTHROUGH PAIN; Start 02/23/18 at 12:00 Naloxone HCl (Narcan Inj) 0.4 mg UNSCH PRN IV PUSH SEE LABEL COMMENTS; Start at 12:00 Senna/Docusate Sodium (Sulema-Colace) 1 tab BID PO ; Start 02/23/18 at 21:00 Magnesium Hydroxide (Milk Of Magnesia Liq) 30 ml Q12H PRN PO Mild constipation ; Start 02/23/18 at 12:00 Sennosides (Senokot) 17.2 mg Q12H PRN PO Moderate constipation; Start 02/23/18 at 12:00 Bisacodyl (Dulcolax Supp) 10 mg DAILY PRN RECTAL SEVERE CONSITIPATION; Start at 12:00 Lactulose (Lactulose Liq) 30 ml DAILY PRN PO SEVERE CONSITIPATION; Start at 12:00 A/P Assessment and Plan 72-year-old white female admitted for recurring pleural effusion SOB - likely 2/2 effusion, stable resp status at this time, monitor Pleural effusion -Recurring based upon previous admission, discussed with oncology, left sided thoracentesis and CT-guided biopsy of the left lung bronchus mass. Initial CT was performed as an outpatient [place] [facility]. -Consulting oncology Status post left-sided thoracentesis on February [address]-guided biopsy of left lung mass with interventional radiology February 23 awaits procedure Hypothyroidism continue on Synthroid Hyperlipidemia continue on Lipitor SCDs, hold off on lovenox given anticipated procedures Discharge Planning Pending lung biopsy Holger Bradford DO February 23, 2018 12:38
[2018-02-23] MEDS ORDERED: MIDAZOLAM HCL 2 MG/2 ML VIAL ONE (13:29)
--- NOTE | 2018-02-23 14:52 | PD.RAD ---
Post CT Procedure Prog Note Pre Procedure Diagnosis: (1) Lung mass Post Procedure Diagnosis: (1) Lung mass Procedure Date: February 23, 2018 Supervising Radiologist: Won Salvador Proceduralist/Assist: belen beasley Estimated blood loss: none Anesthesia: Conscious Sedation Plan of Activity Patient to Unit: [facility] Patient Condition: Good See PACS Report for procedural detail/treatment Won Salvador MD February 23, 2018 14:52
--- NOTE | 2018-02-23 15:17 | RADRPT ---
EXAM DATE: 02/23/2018 3:14 PM EDT AGE/SEX: 72 years / Female INDICATIONS: Post lung bx evaluate pneumothorax. CLINICAL DATA: This is the patient's subsequent encounter. Patient reports that signs and symptoms h ave been present for 1 day and indicates a pain score of 0/10. MEDICAL/SURGICAL HISTORY: Carcinoma, lung. Hypercholesterolemia. Hypothyroidism. None. COMPARISON: [facility] – [place], CHEST EXPIRATION ONLY, 02/22/2018. . FINDINGS: A single frontal expiratory view of the chest was performed. Left upper lobe/perihilar mass. Left-si ded pleural effusion. Shift of the mediastinum to the right. There appears to be a tiny left apical p neumothorax CONCLUSION: Tiny left apical pneumothorax. Electronically signed by: Won Salvador MD 02/23/2018 3:16 PM EDT
--- NOTE | 2018-02-23 16:26 | RADRPT ---
EXAM DATE: 02/23/2018 3:03 PM EDT AGE/SEX: 72 years / Female INDICATIONS: Left lung mass. CLINICAL DATA: This is the patient's initial encounter. Patient reports that signs and symptoms have been present for 1 day and indicates a pain score of 0/10. MEDICAL/SURGICAL HISTORY: None. None. COMPARISON: No prior [place] exams available for comparison. BIOPSY SITE: Left lung MEDICATION(S): 2mg midazolam (Versed) IV 100mcg fentanyl (Sublimaze) IV DEVICE(S): 20 gauge BARD biopsy needle 19-gauge BARD introducer needle Three core specimen(s) sent to the laboratory for pathologic evaluation. . . PROCEDURE: CT guided Left lung biopsy Prior to the procedure informed consent was obtained. Any appropriate prior imaging studies were rev iewed. Using automated exposure control and adjustment of the mA and/or kV according to patient size , radiation dose was kept as low as reasonably achievable to obtain optimal diagnostic quality images . DICOM format image data is available electronically for review and comparison. The site was prepped in a sterile fashion. Full sterile technique was used, including cap, mask, alejandro rile gloves and gown and a large sterile sheet. Hand hygiene and 2% chlorhexidine and/or betadine/al cohol prep was utilized per protocol for cutaneous antisepsis. The skin and subcutaneous tissues wer e infiltrated with local anesthetic solution. With CT guidance the previously identified target was localized. Biopsy was performed using the presc ribed needle as above. Adequate hemostasis was obtained with compression at the puncture site. Follow-up CT scan reveals no pneumothorax. Conscious sedation was performed with the prescribed dosages and duration as above in the presence of an independent trained radiology nurse to assist in the monitoring of the patient. EKG and oximetry remained stable throughout the procedure. The patient tolerated the procedure well and there were no complications. The patient was sent to Radiology Outpatient Unit in stable condition. FINDINGS: Left lung mass was biopsied from an anterior approach. 3 samples obtained. CONCLUSION: 1. Uncomplicated CT guided biopsy of left lung mass. Electronically signed by: Won Salvador MD 02/23/2018 4:25 PM EDT
--- NOTE | 2018-02-23 16:28 | RADRPT ---
EXAM DATE: 02/23/2018 4:24 PM EDT AGE/SEX: 72 years / Female INDICATIONS: Post left side lung biopsy. CLINICAL DATA: This is the patient's subsequent encounter. Patient reports that signs and symptoms h ave been present for 1 day and indicates a pain score of 0/10. MEDICAL/SURGICAL HISTORY: . Carcinoma, lung. Hypercholesterolemia. Hypothyroidism None. COMPARISON: [facility], CHEST EXPIRATION ONLY, 02/23/2018. [facility], XR CHEST PA AND LAT, 02/06/2018. [facility], C HEST PA & LAT, 02/22/2018. . FINDINGS: Single frontal expiratory view the chest was performed. Questionable tiny left apical pneumothorax. L arge left lung mass and pleural effusion. Mediastinal shift to the right is unchanged. CONCLUSION: Questionable tiny left apical pneumothorax. Electronically signed by: Won Salvador MD 02/23/2018 4:26 PM EDT
[2018-02-23] MEDS ORDERED: ZOLPIDEM TARTRATE 5 MG TAB PO PRN (21:00)
[2018-02-23] MEDS: SODIUM CHLORIDE 0.9% FLUSH 10 ML FLUSH IV FLUSH SCH (21:44)
[2018-02-23] MEDS: ATORVASTATIN 20 MG TAB PO SCH (21:44)
[2018-02-23] MEDS: DOCUSATE SODIUM 50 MG/SENNA 8.6 MG TAB PO SCH (21:44)
[2018-02-24] VITALS: PULSE 82
[2018-02-24 00:03] VITALS: BP 98/65; PULSE 89; RESP 18; TEMP 98.1; O2SAT 97
[2018-02-24 04:00] VITALS: BP 95/71; PULSE 122; PULSE 96; RESP 20; TEMP 98.2; O2SAT 96
[2018-02-24] MEDS: LEVOTHYROXINE SODIUM 100 MCG TAB PO SCH (04:54)
[2018-02-24 07:00] VITALS: PULSE 103
[2018-02-24 08:00] VITALS: BP 93/68; PULSE 102; RESP 18; TEMP 98.2; O2SAT 96
[2018-02-24] MEDS: DOCUSATE SODIUM 50 MG/SENNA 8.6 MG TAB PO SCH (08:25)
[2018-02-24] MEDS: SODIUM CHLORIDE 0.9% FLUSH 10 ML FLUSH IV FLUSH SCH (08:25)
--- NOTE | 2018-02-24 09:11 | PD.ONC.PN ---
Subjective Subjective Remarks Sitting comfortably at bedside in no distress. She reports that she is looking forward to going home today. Objective Data Date Time Temp Pulse Resp B/P (MAP) Pulse Ox O2 Delivery O2 Flow Rate FiO2 02/24/18 08:00 98.2 102 18 93/68 (76) 96 02/24/18 07:00 103 02/24/18 04:00 122 02/24/18 04:00 98.2 96 20 95/71 (79) 96 02/24/18 00:03 98.1 89 18 98/65 (76) 97 02/24/18 00:00 82 02/23/18 20:50 98.0 97 18 86/59 (68) 94 02/23/18 20:00 96 02/23/18 17:00 98.0 94 18 107/74 (85) 94 02/23/18 16:25 94 16 95/70 (78) 96 02/23/18 15:55 92 16 105/73 (84) 96 02/23/18 15:25 96 16 95/65 (75) 94 02/23/18 15:10 98.0 101 16 95/62 (73) 93 02/23/18 12:00 98.7 98 18 107/65 (79) 91 02/23/18 10:40 104 02/24/18 02/24/18 02/24/18 07:00 15:00 23:00 Intake Total 240 ml Output Total 400 ml Balance -160 ml Result Diagram: 02/22/18 0800 02/22/18 0800 Imaging Studies Last 24 hours Impressions Chest X-Ray 02/23/18 1615 Signed Impressions: CONCLUSION: Questionable tiny left apical pneumothorax. Lung Biopsy CT 02/23/18 1305 Signed Impressions: CONCLUSION: 1. Uncomplicated CT guided biopsy of left lung mass. Administered Medications Medications (Trade) Dose Ordered Sig/Ajay Route PRN Reason Start Time Stop Time Status Last Admin Dose Admin Atorvastatin Calcium (Lipitor) 20 mg HS PO 02/22/18 21:00 02/23/18 21:44 Levothyroxine Sodium (Synthroid) 100 mcg DAILY@0600 PO 02/23/18 06:00 02/24/18 04:54 Sodium Chloride (NS Flush) 2 ml BID IV FLUSH 02/23/18 21:00 6/1/18 08:25 Senna/Docusate Sodium (Sulema-Colace) 1 tab BID PO 02/23/18 21:00 02/23/18 21:44 Objective Remarks GENERAL: Well-nourished, well-developed patient. SKIN: Warm and dry. HEAD: Normocephalic. EYES: No scleral icterus. No injection or drainage. RESPIRATORY: No accessory muscle use. EXTREMITIES: No naima. NEUROLOGICAL: No obvious focal deficit. Awake, alert, and oriented x3. PSYCHIATRIC: Appropriate mood and affect; insight and judgment normal. Assessment/Plan Assessment 1. Lung mass highly suspicious for malignancy: s/p biopsy by IR team yesterday. She is cleared for discharge from oncologic standpoint. Will arrange close follow up in oncology clinic. Vonnie Hale MD Feb 24, 2018 09:11
[2018-02-24 09:30] LABS: AUTOMATED NEUTROPHIL # 5.1 TH/MM3 (1.8-7.7); BASOPHIL # 0.1 TH/MM3 (0-0.2); BASOPHIL % 0.9 % (0.0-2.0); EOSINOPHIL # 0.2 TH/MM3 (0-0.4); HEMATOCRIT 37.7 % (35.0-46.0); HEMOGLOBIN 12.1 GM/DL (11.6-15.3); LYMPH % 14.1 % (9.0-44.0); LYMPHOCYTE # 0.9 TH/MM3 (1.0-4.8); MEAN CELL VOLUME 73.9 FL (80.0-100.0); MEAN CORPUSCULAR HEMOGLOBIN 23.7 PG (27.0-34.0); MEAN CORPUSCULAR HGB CONC 32.1 % (32.0-36.0); MEAN PLATELET VOLUME 7.4 FL (7.0-11.0); MONO % 6.9 % (0.0-8.0); MONOCYTE # 0.5 TH/MM3 (0-0.9); NEUT % 75.1 % (16.0-70.0); PLATELET COUNT 354 TH/MM3 (150-450); RED BLOOD COUNT 5.11 MIL/MM3 (4.00-5.30); RED CELL DISTRIBUTION WIDTH 17.6 % (11.6-17.2); WHITE BLOOD COUNT 6.7 TH/MM3 (4.0-11.0)
[2018-02-24 09:54] LABS: ALBUMIN 2.8 GM/DL (3.4-5.0); ALT (GPT) 14 U/L (10-53); AST (GOT) 20 U/L (15-37); BLOOD UREA NITROGEN 19 MG/DL (7-18); CALCIUM 9.3 MG/DL (8.5-10.1); CHLORIDE 103 MEQ/L (98-107); CREATININE 0.64 MG/DL (0.50-1.00); GLOMERULAR FILTRATION RATE 92 ML/MIN (>89); GLUCOSE,RANDOM 75 MG/DL (74-106); MAGNESIUM 2.2 MG/DL (1.5-2.5); SODIUM (NA) 138 MEQ/L (136-145)
[2018-02-24 10:03] LABS: ALKALINE PHOSPHATASE 98 U/L (45-117); TOTAL BILIRUBIN ADULT 0.5 MG/DL (0.2-1.0); TOTAL PROTEIN 7.2 GM/DL (6.4-8.2)
--- NOTE | 2018-02-24 10:28 | HHI.PR ---
Subjective Remarks 72-year-old white female being admitted for shortness of breath Patient was in her usual state of health until sometime yesterday when she developed a gradual onset of worsening shortness of breath. There were no alleviating or exacerbating factors. Shortness of breath persisted to even being at rest and this morning progressed in intensity and thus decided come to the emergency department. In the emergency department she had a chest x-ray done which showed a recurring pleural effusion on the left lung which I independently reviewed which occupies almost 2/3 of the left lung. ED physician relayed to me that he spoke with the patient's oncologist who recommended biopsy. Patient does endorse having some nausea but no vomiting. Denies any nausea vomiting fevers chills or chest pain. Says her appetite is doing well. Patient originally was scheduled for an outpatient PET scan and possible PFT tests today for her left lung mass; however due to her worsening symptoms she cannot make it to the appointments and came to the emergency department. Patient had a bronchoscopy done with cytology of the left lung main bronchus mass which did not show any malignant cells but oncology suspects that this was either a false negative/or inadequate specimen. CT abdomen from before shows lesions on the liver of which they could not exclude metastatic lesions. 02-23 HAD LEFT SIDED THORACENTESIS YESTERDAY SCHEDULED TO GO FOR BIOPSY OF LEFT LUNG TODAY WITH IR LEONIDES RENTERIA RN AND PT AND CM and family AM LABS AWAIT PATHOLOGY 02-24 HAD LEFT SIDE LUNG BIOPSY ON 02-23 WANTS TO GO HOME CAN FOLLOW UP WITH DR ARANA NEXT WEEK PATHOLOGY PENDING DC TO HOME TODAY Objective Vitals Vital Signs Date Time Temp Pulse Resp B/P (MAP) Pulse Ox O2 Delivery O2 Flow Rate FiO2 02/24/18 08:00 98.2 102 18 93/68 (76) 96 02/24/18 07:00 103 02/24/18 04:00 122 02/24/18 04:00 98.2 96 20 95/71 (79) 96 02/24/18 00:03 98.1 89 18 98/65 (76) 97 02/24/18 00:00 82 02/23/18 20:50 98.0 97 18 86/59 (68) 94 02/23/18 20:00 96 02/23/18 17:00 98.0 94 18 107/74 (85) 94 02/23/18 16:25 94 16 95/70 (78) 96 02/23/18 15:55 92 16 105/73 (84) 96 02/23/18 15:25 96 16 95/65 (75) 94 02/23/18 15:10 98.0 101 16 95/62 (73) 93 02/23/18 12:00 98.7 98 18 107/65 (79) 91 02/23/18 10:40 104 I/O 02/23/18 02/23/18 02/23/18 02/24/18 02/24/18 02/24/18 06:59 14:59 22:59 06:59 14:59 22:59 Intake Total 240 ml 480 ml 240 ml Output Total 440 ml 400 ml Balance -200 ml 480 ml -160 ml Intake Oral 240 ml 480 ml 240 ml Output Urine Total 440 ml 400 ml # Voids 4 # Bowel Movements 1 1 Result Diagram: 02/24/18 0814 02/24/18 0814 Other Results Laboratory Tests Test 02/22/18 08:00 02/24/18 08:14 White Blood Count 8.2 TH/MM3 6.7 TH/MM3 Red Blood Count 5.33 MIL/MM3 5.11 MIL/MM3 Hemoglobin 12.6 GM/DL 12.1 GM/DL Hematocrit 38.9 % 37.7 % Mean Corpuscular Volume 73.0 FL 73.9 FL Mean Corpuscular Hemoglobin 23.6 PG 23.7 PG Mean Corpuscular Hemoglobin Concent 32.3 % 32.1 % Red Cell Distribution Width 17.4 % 17.6 % Platelet Count 391 TH/MM3 354 TH/MM3 Mean Platelet Volume 7.4 FL 7.4 FL Neutrophils (%) (Auto) 80.4 % 75.1 % Lymphocytes (%) (Auto) 12.2 % 14.1 % Monocytes (%) (Auto) 5.2 % 6.9 % Eosinophils (%) (Auto) 1.2 % 3.0 % Basophils (%) (Auto) 1.0 % 0.9 % Neutrophils # (Auto) 6.6 TH/MM3 5.1 TH/MM3 Lymphocytes # (Auto) 1.0 TH/MM3 0.9 TH/MM3 Monocytes # (Auto) 0.4 TH/MM3 0.5 TH/MM3 Eosinophils # (Auto) 0.1 TH/MM3 0.2 TH/MM3 Basophils # (Auto) 0.1 TH/MM3 0.1 TH/MM3 CBC Comment DIFF FINAL DIFF FINAL Differential Comment Prothrombin Time 10.5 SEC Prothromb Time International Ratio 1.0 RATIO Activated Partial Thromboplast Time 29.0 SEC Blood Urea Nitrogen 15 MG/DL 19 MG/DL Creatinine 0.71 MG/DL 0.64 MG/DL Random Glucose 77 MG/DL 75 MG/DL Total Protein 7.6 GM/DL 7.2 GM/DL Albumin 2.9 GM/DL 2.8 GM/DL Calcium Level 9.2 MG/DL 9.3 MG/DL Alkaline Phosphatase 108 U/L 98 U/L Aspartate Amino Transf (AST/SGOT) 25 U/L 20 U/L Alanine Aminotransferase (ALT/SGPT) 14 U/L 14 U/L Total Bilirubin 0.4 MG/DL 0.5 MG/DL Sodium Level 139 MEQ/L 138 MEQ/L Potassium Level 3.6 MEQ/L 3.6 MEQ/L Chloride Level 103 MEQ/L 103 MEQ/L Carbon Dioxide Level 20.9 MEQ/L 23.0 MEQ/L Anion Gap 15 MEQ/L 12 MEQ/L Estimat Glomerular Filtration Rate 81 ML/MIN 92 ML/MIN Total Creatine Kinase 38 U/L Troponin I LESS THAN 0.02 NG/ML B-Type Natriuretic Peptide 85 PG/ML Lipase 75 U/L Phosphorus Level 3.0 MG/DL Magnesium Level 2.2 MG/DL Free Thyroxine 1.70 NG/DL Thyroid Stimulating Hormone 3rd Gen 0.945 uIU/ML Imaging Last Impressions Chest X-Ray 02/23/18 1615 Signed Impressions: CONCLUSION: Questionable tiny left apical pneumothorax. Lung Biopsy CT 02/23/18 1305 Signed Impressions: CONCLUSION: 1. Uncomplicated CT guided biopsy of left lung mass. Thoracentesis Ultrasound 02/22/18 0000 Signed Impressions: CONCLUSION: 1. Uncomplicated left thoracentesis. Objective Remarks GENERAL: Awake alert and oriented 3 talkative and cooperative -thin appearing female SKIN: Warm and dry. HEAD: Atraumatic. Normocephalic. EYES: Pupils equal and round. No scleral icterus. No injection or drainage. Extraocular muscles intact wearing glasses ENT: No nasal bleeding or discharge. Mucous membranes pink and moist. Tongue is midline NECK: Trachea midline. No JVD. Supple CARDIOVASCULAR: Regular rate and rhythm. S1-S2 no S3 or S4 decreased breath sounds RESPIRATORY: No accessory muscle use. Clear to auscultation. Breath sounds equal bilaterally. Left side of the lungs GOOD BREATH SOUNDS GASTROINTESTINAL: Abdomen soft, non-tender, nondistended. Hepatic and splenic margins not palpable. MUSCULOSKELETAL: Extremities without clubbing, cyanosis, or edema. No obvious deformities. NEUROLOGICAL: Awake and alert. No obvious cranial nerve deficits. Motor grossly within normal limits. 4 out of 5 muscle strength in the arms and legs. Normal speech. PSYCHIATRIC: Appropriate mood and affect; insight and judgment normal. Procedures THORACENTESIS ON LEFT 02-22 LEFT SIDE LUNG BIOPSY 02-23 Medications and IVs Current Medications Sodium Chloride (NS Flush) 2 ml UNSCH PRN IVF FLUSH AFTER USING IV ACCESS; Start 02/22/18 at 08:00; Stop 02/23/18 at 12:01; Status DC Ondansetron HCl (Zofran Odt) 4 mg ONCE ONCE PO Last administered on at 10:33; Start 02/22/18 at 10:30; Stop 02/22/18 at 10:31; Status DC Atorvastatin Calcium (Lipitor) 20 mg HS PO Last administered on 02/23/18at 21:44 ; Start 02/22/18 at 21:00 Levothyroxine Sodium (Synthroid) 100 mcg DAILY@0600 PO Last administered on 02/24at 04:54; Start 02/23/18 at 06:00 Ondansetron HCl (Zofran Odt) 4 mg ONCE ONCE PO Last administered on at 13:32; Start 02/22/18 at 13:15; Stop 02/22/18 at 13:24; Status DC Lidocaine HCl (Xylocaine-Mpf 1% Inj) 30 ml STK-MED ONCE .ROUTE Last administered on 02/22/18at 13:40; Start 02/22/18 at 14:14; Stop 02/22/18 at 14:15 ; Status DC Sodium Chloride (NS Flush) 2 ml UNSCH PRN IV FLUSH FLUSH AFTER USING IV ACCESS ; Start 02/23/18 at 12:00 Sodium Chloride (NS Flush) 2 ml BID IV FLUSH Last administered on 02/24/18at 08: 25; Start 02/23/18 at 21:00 Acetaminophen (Tylenol) 650 mg Q4H PRN PO TEMP > 100.4; Start 02/23/18 at 12:00 Ondansetron HCl (Zofran Odt) 4 mg Q6H PRN PO NAUSEA OR VOMITING; Start at 12:00 Metoclopramide HCl (Reglan Inj) 5 mg Q6H PRN IV PUSH NAUSEA OR VOMITING; Start 02/23/18 at 12:00 Zolpidem Tartrate (Ambien) 5 mg HS PRN PO INSOMNIA; Start 02/23/18 at 21:00 Acetaminophen (Tylenol) 650 mg Q6H PRN PO PAIN SCALE 1 TO 2; Start 02/23/18 at 12:00 Oxycodone/ Acetaminophen (Percocet 5-325 Mg) 1 tab Q6H PRN PO PAIN SCALE 3 TO 5; Start 02/23/18 at 12:00 Oxycodone/ Acetaminophen (Percocet 10-325 Mg) 1 tab Q6H PRN PO PAIN SCALE 6 TO 10; Start 02/23/18 at 12:00 Morphine Sulfate (Morphine Inj) 2 mg Q3H PRN IV PUSH Pain 3-5; if unable to take PO; Start 02/23/18 at 12:00 Morphine Sulfate (Morphine Inj) 4 mg Q3H PRN IV PUSH Pain 6-10;if unable to take PO; Start 02/23/18 at 12:00 Morphine Sulfate (Morphine Inj) 4 mg Q3H PRN IV PUSH BREAKTHROUGH PAIN; Start 02/23/18 at 12:00 Naloxone HCl (Narcan Inj) 0.4 mg UNSCH PRN IV PUSH SEE LABEL COMMENTS; Start at 12:00 Senna/Docusate Sodium (Sulema-Colace) 1 tab BID PO Last administered on at 21:44; Start 02/23/18 at 21:00 Magnesium Hydroxide (Milk Of Magnesia Liq) 30 ml Q12H PRN PO Mild constipation ; Start 02/23/18 at 12:00 Sennosides (Senokot) 17.2 mg Q12H PRN PO Moderate constipation; Start 02/23/18 at 12:00 Bisacodyl (Dulcolax Supp) 10 mg DAILY PRN RECTAL SEVERE CONSITIPATION; Start at 12:00 Lactulose (Lactulose Liq) 30 ml DAILY PRN PO SEVERE CONSITIPATION; Start at 12:00 Fentanyl Citrate (fentaNYL INJ) 100 mcg STK-MED ONCE .ROUTE Last administered on 02/23/18at 13:29; Start 02/23/18 at 13:29; Stop 02/23/18 at 13:30; Status DC Midazolam HCl (Versed Inj) 2 mg STK-MED ONCE .ROUTE Last administered on at 13:29; Start 02/23/18 at 13:29; Stop 02/23/18 at 13:30; Status DC A/P Assessment and Plan 72-year-old white female admitted for recurring pleural effusion SOB - likely 2/2 effusion, stable resp status at this time, monitor Pleural effusion -Recurring based upon previous admission, discussed with oncology, left sided thoracentesis and CT-guided biopsy of the left lung bronchus mass. Initial CT was performed as an outpatient [facility] [place] [facility]. -Consulting oncology Status post left-sided thoracentesis on February [address]-guided biopsy of left lung mass with interventional radiology February 23 awaits procedure Hypothyroidism continue on Synthroid Hyperlipidemia continue on Lipitor SCDs, hold off on lovenox given anticipated procedures Discharge Planning CLEARED BY ONCOLOGY DC TO HOME TODAY Holger Bradford DO Feb 24, 2018 10:28
[2018-02-24] MEDS ORDERED: ATOR20TA15 PO (10:32)
[2018-02-24] MEDS ORDERED: OXYC1TAB36 PO (10:32)
[2018-02-24] MEDS ORDERED: ONDA4TAB7 PO (10:32)
[2018-02-24] MEDS ORDERED: LEVO100T5 PO (10:32)
[2018-02-24] MEDS ORDERED: SENN187 PO (10:32)
--- NOTE | 2018-02-24 10:34 | HHI.DS ---
Discharge Summary Admission Date February 22, 2018 at 10:19 Discharge Date: Feb 24, 2018 Admitting Diagnosis DYSPNEA DUE TO LARGE LEFT PLEURAL EFFUSION (1) Lung mass ICD Code: R91.8 - Other nonspecific abnormal finding of lung field Diagnosis: Principal (2) Hyperlipidemia ICD Code: E78.5 - Hyperlipidemia, unspecified Diagnosis: Secondary (3) Hypothyroidism ICD Code: E03.9 - Hypothyroidism, unspecified Diagnosis: Secondary Procedures THORACENTESIS ON LEFT 02-22 LEFT SIDE LUNG BIOPSY 02-23 Brief History - From Admission 72-year-old white female being admitted for shortness of breath Patient was in her usual state of health until sometime yesterday when she developed a gradual onset of worsening shortness of breath. There were no alleviating or exacerbating factors. Shortness of breath persisted to even being at rest and this morning progressed in intensity and thus decided come to the emergency department. In the emergency department she had a chest x-ray done which showed a recurring pleural effusion on the left lung which I independently reviewed which occupies almost 2/3 of the left lung. ED physician relayed to me that he spoke with the patient's oncologist who recommended biopsy. Patient does endorse having some nausea but no vomiting. Denies any nausea vomiting fevers chills or chest pain. Says her appetite is doing well. Patient originally was scheduled for an outpatient PET scan and possible PFT tests today for her left lung mass; however due to her worsening symptoms she cannot make it to the appointments and came to the emergency department. Patient had a bronchoscopy done with cytology of the left lung main bronchus mass which did not show any malignant cells but oncology suspects that this was either a false negative/or inadequate specimen. CT abdomen from before shows lesions on the liver of which they could not exclude metastatic lesions. CBC/BMP: 02/24/18 0814 02/24/18 0814 Significant Findings Laboratory Tests Test 02/22/18 08:00 02/24/18 08:14 Red Blood Count 5.33 MIL/MM3 (4.00-5.30) Mean Corpuscular Volume 73.0 FL (80.0-100.0) 73.9 FL (80.0-100.0) Mean Corpuscular Hemoglobin 23.6 PG (27.0-34.0) 23.7 PG (27.0-34.0) Red Cell Distribution Width 17.4 % (11.6-17.2) 17.6 % (11.6-17.2) Neutrophils (%) (Auto) 80.4 % (16.0-70.0) 75.1 % (16.0-70.0) Albumin 2.9 GM/DL (3.4-5.0) 2.8 GM/DL (3.4-5.0) Carbon Dioxide Level 20.9 MEQ/L (21.0-32.0) Estimat Glomerular Filtration Rate 81 ML/MIN (>89) Troponin I LESS THAN 0.02 NG/ML Lymphocytes # (Auto) 0.9 TH/MM3 (1.0-4.8) Blood Urea Nitrogen 19 MG/DL (7-18) Free Thyroxine 1.70 NG/DL (0.76-1.46) Imaging Last Impressions Chest X-Ray 02/23/18 1615 Signed Impressions: CONCLUSION: Questionable tiny left apical pneumothorax. Lung Biopsy CT 02/23/18 1305 Signed Impressions: CONCLUSION: 1. Uncomplicated CT guided biopsy of left lung mass. Thoracentesis Ultrasound 02/22/18 0000 Signed Impressions: CONCLUSION: 1. Uncomplicated left thoracentesis. PE at Discharge GENERAL: Awake alert and oriented 3 talkative and cooperative -thin appearing female SKIN: Warm and dry. HEAD: Atraumatic. Normocephalic. EYES: Pupils equal and round. No scleral icterus. No injection or drainage. Extraocular muscles intact wearing glasses ENT: No nasal bleeding or discharge. Mucous membranes pink and moist. Tongue is midline NECK: Trachea midline. No JVD. Supple CARDIOVASCULAR: Regular rate and rhythm. S1-S2 no S3 or S4 decreased breath sounds RESPIRATORY: No accessory muscle use. Clear to auscultation. Breath sounds equal bilaterally. Left side of the lungs GOOD BREATH SOUNDS GASTROINTESTINAL: Abdomen soft, non-tender, nondistended. Hepatic and splenic margins not palpable. MUSCULOSKELETAL: Extremities without clubbing, cyanosis, or edema. No obvious deformities. NEUROLOGICAL: Awake and alert. No obvious cranial nerve deficits. Motor grossly within normal limits. 4 out of 5 muscle strength in the arms and legs. Normal speech. PSYCHIATRIC: Appropriate mood and affect; insight and judgment normal. Hospital Course 72-year-old white female being admitted for shortness of breath Patient was in her usual state of health until sometime yesterday when she developed a gradual onset of worsening shortness of breath. There were no alleviating or exacerbating factors. Shortness of breath persisted to even being at rest and this morning progressed in intensity and thus decided come to the emergency department. In the emergency department she had a chest x-ray done which showed a recurring pleural effusion on the left lung which I independently reviewed which occupies almost 2/3 of the left lung. ED physician relayed to me that he spoke with the patient's oncologist who recommended biopsy. Patient does endorse having some nausea but no vomiting. Denies any nausea vomiting fevers chills or chest pain. Says her appetite is doing well. Patient originally was scheduled for an outpatient PET scan and possible PFT tests today for her left lung mass; however due to her worsening symptoms she cannot make it to the appointments and came to the emergency department. Patient had a bronchoscopy done with cytology of the left lung main bronchus mass which did not show any malignant cells but oncology suspects that this was either a false negative/or inadequate specimen. CT abdomen from before shows lesions on the liver of which they could not exclude metastatic lesions. 02-23 HAD LEFT SIDED THORACENTESIS YESTERDAY SCHEDULED TO GO FOR BIOPSY OF LEFT LUNG TODAY WITH IR LEONIDES RENTERIA RN AND PT AND CM and family AM LABS AWAIT PATHOLOGY 02-24 HAD LEFT SIDE LUNG BIOPSY ON 02-23 WANTS TO GO HOME CAN FOLLOW UP WITH DR ARANA NEXT WEEK PATHOLOGY PENDING DC TO HOME TODAY Pt Condition on Discharge: Good Discharge Disposition: Discharge Home Discharge Time: <= 30 minutes Discharge Instructions DIET: Follow Instructions for: Heart Healthy Diet Speech Therapy-Diet Recommends: Regular Activities you can perform: Regular-No Restrictions Follow up Referrals: Oncology/Hematology - 3-5 Days with Vonnie Arana MD PCP Follow-up - 2-3 Days with Jody Clements Jr., MD New Medications: Ondansetron Odt (Ondansetron Odt) 4 Mg Tab 4 MG PO Q6H PRN for NAUSEA OR VOMITING, #30 TAB Oxycodone HCl/Acetaminophen (Oxycodone-Acetaminophen 10-325) 10 Mg-325 Mg Tablet 1 TAB PO Q6H PRN for PAIN SCALE 6 TO 10, #30 TAB Sennosides (Senna-Lax) 8.6 Mg Tab 17.2 MG PO Q12H for Bowel Management, #120 TAB Continued Medications: Atorvastatin (Atorvastatin) 20 Mg Tab 20 MG PO HS for Cholesterol Management, #30 TAB 0 Refills (This prescription has been renewed) Levothyroxine (Levothyroxine) 100 Mcg Tab 100 MCG PO DAILY for Thyroid, #30 TAB 0 Refills (This prescription has been renewed) Holger Bradford DO Feb 24, 2018 10:34
[2018-02-24 16:46] LABS: HEMOGLOBIN A1C 5.8 % (4.3-6.0)
--- NOTE | 2018-03-01 10:31 | PQ ---
Physician Query Response Document PATIENT: GILMER WISEMAN : 1945 ADMIT DATE: 02/22/2018 10:19 AM DISCH DATE: 02/24/2018 10:58 AM RESPONDING PROVIDER #: [email or web address] QUERY TEXT: Clarification of Clinical Diagnostic Findings Please clarify documentation or clinical relevance for the clinical / diagnostic findings or whether those are insignificant or unable to be further specified: Are you in agreement with the Pathology f indings as documented above under Clinical Indicators? If you have any additional questions/comments and/or concerns, please do not hesitate to reach out to the CDI/Coding Hotline, Ext. [phone]. The patient's Clinical Indicators include: Discharge Summary documents: 6-1 HAD LEFT SIDE LUNG BIOPSY ON 02-23 WANTS TO GO HOME CAN FOLLOW UP WITH DR ARANA NEXT WEEK PATHOLOGY PENDING DC TO HOME TODAY Pathology Report is now available in the chart. FINAL DIAGNOSIS: LEFT LUNG, CT GUIDED NEEDLE CORE BIOPSY: INVASIVE MODERATELY DIFFERENTIATED ADENOC ARCINOMA. SEE COMMENT. Query created by: Rufina Arceo on 02/28/2018 9:03 AM RESPONSE TEXT: LUNG BIOPSY SHOWED INVASIVE MODERATELY DIFFERENTIATED ADENOCARCINOMA OF THE LUNG. TO FOLLOW UP WITH Adelaide ARANA OF ONCOLOGY. Electronically signed by: Holger Bradford 03/01/2018 10:26 AM
== END 2018-02-24 10:58 | disposition home or self-care (01) | DRG 181 ==
LOC: NEPE 07:37 → NEDA 10:19 → HCIN 15:00
PROVIDERS: ADMIT Hospitalist; ATTEND Hospitalist
PROC: 0W9B3ZZ Drainage of Left Pleural Cavity, Percutaneous Approach (ICD-10-PCS; 2018-02-22)
PROC: 0BBL3ZX Excision of Left Lung, Percutaneous Approach, Diagnostic (ICD-10-PCS; principal; 2018-02-23)
DX: C34.92 Malignant neoplasm of unspecified part of left bronchus or lung (principal); J90 Pleural effusion, not elsewhere classified; K76.9 Liver disease, unspecified; E03.9 Hypothyroidism, unspecified; E78.00 Pure hypercholesterolemia, unspecified; F40.240 Claustrophobia; E78.5 Hyperlipidemia, unspecified; Z87.891 Personal history of nicotine dependence
CPT/HCPCS: 32405; 32555; 71045; 71046; 77012; 80053; 82550; 83036; 83690; 83735; 83880; 84100; 84439; 84443; 84484; 85025; 85610; 85730; 88305; 88341; 88342; 93005; 99152; 99285; C1729; J2250; J3010

== ENCOUNTER 2018-03-17 06:25 | Inpatient (IN) | payer MEDICARE, BC ==
[2018-03-17] VITALS (7 sets, daily range): BP systolic 126–167; BP diastolic 62–93; PULSE 68–130; RESP 16–28; TEMP 97.2–98.2; O2SAT 92–100
[~2018-03-17] VITALS: Ht 167.6 cm; Wt 50.0 kg
[~2018-03-17 06:25] MED LIST changes: +ONDA4TAB7 PO; +OXYC1TAB36 PO; +SENN187 PO
[2018-03-17] MEDS ORDERED: SODIUM CHLORIDE 0.9% FLUSH 10 ML FLUSH IVF PRN (06:45)
[2018-03-17 06:51] LABS: AUTOMATED NEUTROPHIL # 5.9 TH/MM3 (1.8-7.7); BASOPHIL # 0.1 TH/MM3 (0-0.2); BASOPHIL % 1.4 % (0.0-2.0); EOSINOPHIL # 0.1 TH/MM3 (0-0.4); EOSINOPHIL % 1.8 % (0.0-4.0); HEMATOCRIT 38.2 % (35.0-46.0); HEMOGLOBIN 12.3 GM/DL (11.6-15.3); LYMPH % 16.1 % (9.0-44.0); LYMPHOCYTE # 1.3 TH/MM3 (1.0-4.8); MEAN CELL VOLUME 74.1 FL (80.0-100.0); MEAN CORPUSCULAR HEMOGLOBIN 23.9 PG (27.0-34.0); MEAN CORPUSCULAR HGB CONC 32.2 % (32.0-36.0); MEAN PLATELET VOLUME 7.5 FL (7.0-11.0); MONO % 7.3 % (0.0-8.0); MONOCYTE # 0.6 TH/MM3 (0-0.9); NEUT % 73.4 % (16.0-70.0); PLATELET COUNT 435 TH/MM3 (150-450); RED BLOOD COUNT 5.16 MIL/MM3 (4.00-5.30); RED CELL DISTRIBUTION WIDTH 19.6 % (11.6-17.2); WHITE BLOOD COUNT 8.1 TH/MM3 (4.0-11.0)
[2018-03-17 07:02] LABS: INTERNATIONAL NORMALIZED RATIO 1.1 RATIO; PROTHROMBIN TIME - PATIENT 10.8 SEC (9.8-11.6)
[2018-03-17 07:11] LABS: BICARBONATE 16.9 MEQ/L (21.0-32.0); BLOOD UREA NITROGEN 16 MG/DL (7-18); CALCIUM 9.2 MG/DL (8.5-10.1); CHLORIDE 108 MEQ/L (98-107); CREATININE 0.59 MG/DL (0.50-1.00); GLOMERULAR FILTRATION RATE 101 ML/MIN (>89); GLUCOSE,RANDOM 75 MG/DL (74-106); SODIUM (NA) 140 MEQ/L (136-145)
[2018-03-17 07:14] LABS: TROPONIN I LESS THAN 0.02 NG/ML (0.02-0.05)
--- NOTE | 2018-03-17 07:30 | RADRPT ---
EXAM DATE: 03/17/2018 7:15 AM EDT AGE/SEX: 72 years / Female INDICATIONS: Short of breath, left side back pain. CLINICAL DATA: This is the patient's initial encounter. Patient reports that signs and symptoms have been present for 2 days and indicates a pain score of 0/10. MEDICAL/SURGICAL HISTORY: Carcinoma, lung. thyroid disease None. COMPARISON: [facility] [place], CHEST PA & LAT, 02/22/2018. . FINDINGS: Frontal and lateral views of the chest demonstrate complete opacification of the left hemithorax with rightward shift of the mediastinum. Right lung demonstrates no acute abnormality. Bones demonstrate no acute abnormality. There are mild degenerative changes of the thoracic spine. There are stable pauline cified structures in the left upper quadrant. CONCLUSION: Interval increase in size of the left pleural effusion with complete opacification left hemithorax an d rightward shift of the mediastinum. Electronically signed by: Tayo Frazier MD 03/17/2018 7:29 AM EDT
--- NOTE | 2018-03-17 07:38 | PD ---
HPI Chief Complaint: Respiratory Symptoms Time Seen by Provider: 07:30 Travel History International Travel<30 days: No Contact w/Intl Traveler<30days: No Traveled to known affect area: No History of Present Illness HPI This patient complains of shortness of breath. This been gradually worsening over the last week. Symptoms are moderately severe. She denies fever cough or chest pain. She was recently diagnosed with lung cancer and already has had 2 thoracentesis in the last month. No alleviating factors. Symptoms exacerbated by her untreated cancer. 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 She has established with oncology. She quit smoking 13 years ago PFSH Past Medical History Cancer: No Cardiovascular Problems: No High Cholesterol: Yes Diminished Hearing: No Endocrine: Yes Genitourinary: No Immune Disorder: No Musculoskeletal: No Neurologic: No Psychiatric: No Reproductive: No Respiratory: Yes Thyroid Disease: Yes Tetanus Vaccination: Unknown Influenza Vaccination: No : 4 Para: 4 Tubal Ligation: Yes Past Surgical History Tonsillectomy: Yes Social History Alcohol Use: No Tobacco Use: No (quit 13 years ago) Substance Use: No Allergies-Medications (Allergen,Severity, Reaction): Coded Allergies: erythromycin base (Verified Allergy, Intermediate, 03/17/18) Reported Meds & Prescriptions Reported Meds & Active Scripts Active Ondansetron Odt 4 Mg Tab 4 Mg PO Q6H PRN Senna-Lax (Sennosides) 8.6 Mg Tab 17.2 Mg PO Q12H Oxycodone-Acetaminophen 10-325 (Oxycodone HCl/Acetaminophen) 10 Mg-325 Mg Tablet 1 Tab PO Q6H PRN Atorvastatin (Atorvastatin Calcium) 20 Mg Tab 20 Mg PO HS Levothyroxine (Levothyroxine Sodium) 100 Mcg Tab 100 Mcg PO DAILY Review of Systems General / Constitutional: No: Fever Eyes: No: Visual changes HENT: No: Headaches Cardiovascular: No: Chest Pain or Discomfort Respiratory: Positive: Shortness of Breath Gastrointestinal: No: Abdominal Pain Genitourinary: No: Dysuria Musculoskeletal: No: Pain Skin: No Rash Neurologic: No: Weakness Psychiatric: No: Depression Endocrine: No: Polydipsia Hematologic/Lymphatic: No: Easy Bruising Physical Exam Narrative GENERAL: Thin pleasant well-developed patient who is short of breath . SKIN: Focused skin assessment reveals no rash and nodules. Skin is Warm and dry. HEAD: Atraumatic. Normocephalic. EYES: Pupils equal and round. No scleral icterus. No injection or drainage. ENT: No nasal bleeding or discharge. Mucous membranes pink and moist. NECK: Trachea midline. No JVD. CARDIOVASCULAR: Regular rate and rhythm. No murmur appreciated. RESPIRATORY: Slight accessory muscle use. Clear to auscultation on the right side with no breath sounds on the left. GASTROINTESTINAL: Abdomen soft, non-tender, nondistended. Hepatic and splenic margins not palpable. MUSCULOSKELETAL: No obvious deformities. No clubbing. No cyanosis. No edema. NEUROLOGICAL: Awake and alert. No obvious cranial nerve deficits. Motor grossly within normal limits. Normal speech. PSYCHIATRIC: Appropriate mood and affect; insight and judgment normal. Data Data Last Documented VS Vital Signs Date Time Temp Pulse Resp B/P (MAP) Pulse Ox O2 Delivery O2 Flow Rate FiO2 03/17/18 06:41 97 Nasal Cannula 2.00 03/17/18 06:35 123 28 144/93 (110) 03/17/18 06:31 98.1 Orders Orders Electrocardiogram (03/17/18 06:39) Basic Metabolic Panel (Bmp) (03/17/18 06:39) Ckmb (Isoenzyme) Profile (03/17/18 06:39) Complete Blood Count With Diff (03/17/18 06:39) Magnesium (Mg) (03/17/18 06:39) Prothrombin Time / Inr (Pt) (03/17/18 06:39) Act Partial Throm Time (Ptt) (03/17/18 06:39) Troponin I (03/17/18 06:39) Ecg Monitoring (03/17/18 06:39) Bilateral Bp Monitoring (03/17/18 06:39) Iv Access Insert/Monitor (03/17/18 06:39) Oximetry (03/17/18 06:39) Oxygen Administration (03/17/18 06:39) Sodium Chloride 0.9% Flush (Ns Flush) (03/17/18 06:45) Chest, Pa & Lat (03/17/18 06:39) Labs Laboratory Tests Test 03/17/18 06:41 White Blood Count 8.1 TH/MM3 Red Blood Count 5.16 MIL/MM3 Hemoglobin 12.3 GM/DL Hematocrit 38.2 % Mean Corpuscular Volume 74.1 FL Mean Corpuscular Hemoglobin 23.9 PG Mean Corpuscular Hemoglobin Concent 32.2 % Red Cell Distribution Width 19.6 % Platelet Count 435 TH/MM3 Mean Platelet Volume 7.5 FL Neutrophils (%) (Auto) 73.4 % Lymphocytes (%) (Auto) 16.1 % Monocytes (%) (Auto) 7.3 % Eosinophils (%) (Auto) 1.8 % Basophils (%) (Auto) 1.4 % Neutrophils # (Auto) 5.9 TH/MM3 Lymphocytes # (Auto) 1.3 TH/MM3 Monocytes # (Auto) 0.6 TH/MM3 Eosinophils # (Auto) 0.1 TH/MM3 Basophils # (Auto) 0.1 TH/MM3 CBC Comment DIFF FINAL Differential Comment Prothrombin Time 10.8 SEC Prothromb Time International Ratio 1.1 RATIO Activated Partial Thromboplast Time 31.7 SEC Blood Urea Nitrogen 16 MG/DL Creatinine 0.59 MG/DL Random Glucose 75 MG/DL Calcium Level 9.2 MG/DL Magnesium Level 2.0 MG/DL Sodium Level 140 MEQ/L Potassium Level 3.4 MEQ/L Chloride Level 108 MEQ/L Carbon Dioxide Level 16.9 MEQ/L Anion Gap 15 MEQ/L Estimat Glomerular Filtration Rate 101 ML/MIN Total Creatine Kinase 33 U/L Troponin I LESS THAN 0.02 NG/ML MDM Medical Decision Making Medical Screen Exam Complete: Yes Emergency Medical Condition: Yes Medical Record Reviewed: Yes Differential Diagnosis Pleural effusion, lung cancer, pneumonia Narrative Course I have reviewed the patient's electronic medical record. Reviewed her recent discharge summary from earlier this month where she was admitted for the same thing IV placed and labs sent CBC and metabolic studies reasonably normal I reviewed her EKG which shows sinus rhythm without ST elevation She does have some sinus tachycardia on extended cardiac monitoring without ectopy I reviewed her chest x-ray which reveals complete white out of the left lung due to pleural effusion There is some slight mediastinal shift toward the right Patient has saturation of 98% on 2 L nasal cannula. She will require hospitalization and thoracentesis today. This will make her third thoracentesis in a month. Call was placed to the medical residents for admission Consult was placed to interventional radiology for thoracentesis Diagnosis Primary Impression: Malignant pleural effusion Additional Impression: Shortness of breath Admitting Information Admitting Physician Requests: Admit Samy Castellanos MD Mar 17, 2018 07:38
[2018-03-17] MEDS ORDERED: ONDANSETRON ODT 4 MG TAB PO ONE (08:00)
[2018-03-17] MEDS ORDERED: ONDANSETRON ODT 4 MG TAB PO PRN (09:00)
[2018-03-17] MEDS ORDERED: SODIUM CHLORIDE 0.9% FLUSH 10 ML FLUSH IV FLUSH PRN (09:00)
[2018-03-17] MEDS ORDERED: ACETAMINOPHEN 325 MG TAB PO PRN ×2 (09:00)
[2018-03-17] MEDS ORDERED: SENNOSIDES 8.6 MG TAB PO SCH (09:00)
[2018-03-17] MEDS ORDERED: NALOXONE HCL 0.4 MG/ML AMP IV PUSH PRN (09:00)
[2018-03-17] MEDS ORDERED: SODIUM CHLORIDE 0.9% FLUSH 10 ML FLUSH IV FLUSH SCH (09:00)
[2018-03-17] MEDS ORDERED: LEVOTHYROXINE SODIUM 100 MCG TAB PO SCH (09:00)
[2018-03-17] MEDS ORDERED: POTASSIUM CHLORIDE 20 MEQ CONTROLLED RELEASE TAB PO ONE (09:30)
--- NOTE | 2018-03-17 10:34 | RADRPT ---
EXAM DATE: 03/17/2018 10:13 AM EDT AGE/SEX: 72 years / Female INDICATIONS: Status post Left Thoracentesis. CLINICAL DATA: This is the patient's subsequent encounter. Patient reports that signs and symptoms h ave been present for 1 day and indicates a pain score of 0/10. MEDICAL/SURGICAL HISTORY: Carcinoma, lung. None. COMPARISON: [facility], CT CHEST W/ CONTRAST, 02/07/2018. . FINDINGS: There is no pneumothorax. Dense consolidation remains occupying most of the left lung. The right lung is clear. CONCLUSION: No significant pneumothorax. Repeat thoracentesis probably not be helpful. Most of her shortness of b reath probably arises from tumor directly invading her left atrium. Electronically signed by: Holger Fitzgerald MD 03/17/2018 10:33 AM EDT
[2018-03-17] MEDS ORDERED: LIDOCAINE HCL 1% PF 30 ML VIAL ONE (11:18)
--- NOTE | 2018-03-17 12:32 | RADRPT ---
EXAM DATE: 03/17/2018 10:58 AM EDT AGE/SEX: 72 years / Female INDICATIONS: Malignant left pleural effusion. CLINICAL DATA: This is the patient's initial encounter. Patient reports that signs and symptoms have been present for 1 month and indicates a pain score of 5/10. MEDICAL/SURGICAL HISTORY: Hypercholesterolemia. Lung cancer. Hyperlipidemia. Tonsillectomy. T ubal ligation. Thoracentesis. COMPARISON: [facility] [place] LEFT, 02/22/2018. . FLUID: Total volume of 2000 cc of clear, red fluid was removed. Fluid was discarded. Thoracentesis was therapeutic only. . . TECHNIQUE: Ultrasound guidance for thoracentesis. Thoracentesis. The risks, benefits, and alternatives to ultrasound guided thoracentesis were explained to the patien t in lay simple terms, including the risk of bleeding and infection. Written and verbal informed con sent was obtained. Appropriate area for left thoracentesis was marked under ultrasound guidance with the patient in the upright position. Overlying skin was prepped and draped in the usual sterile fashion and with local anesthetic, a dermatotomy was made with an 11 blade scalpel. A 6 [place] thoracentesis catheter was p laced in the pleural space and fluid was removed. Catheter was then removed and a sterile dressing a pplied. There were no immediate complications. The patient tolerated the procedure well and the left the ultrasound suite in stable condition. Chest radiograph is to be obtained. CONCLUSION: 1. Uncomplicated ultrasound-guided left thoracentesis. 2. The bulk of the opacity in the left hemithorax is a solid tumor. Electronically signed by: Holger Fitzgerald MD 03/17/2018 12:31 PM EDT
--- NOTE | 2018-03-17 12:40 | EKG ---
Date Performed: 03/17/2018 Time Performed: 06:38:30 PTAGE: 72 years EKG: SINUS TACHYCARDIA LOW QRS VOLTAGE IN PRECORDIAL LEADS POSSIBLE RIGHT VENTRICULAR CONDUCTION DELAY ABNORMAL ECG PREVIOUS TRACING : 02/22/2018 08.33 Since the previous tracing, no significant change noted DOCTOR: Chapo Ahumada Interpretating Date/Time 03/17/2018 12:38:40
--- NOTE | 2018-03-17 14:39 | HHI.DCPOC ---
Discharge Care Plan Diagnosis: (1) Malignant pleural effusion (2) Shortness of breath (3) Hypothyroidism Goals to Promote Your Health * To prevent worsening of your condition and complications * To maintain your health at the optimal level Directions to Meet Your Goals Take your medications as prescribed Follow your dietary instruction Follow activity as directed Keep your appointments as scheduled Take your immunizations and boosters as scheduled If your symptoms worsen call your PCP, if no PCP go to Urgent Care Center or Emergency Room Smoking is Dangerous to Your Health. Avoid second hand smoke Call the 24-hour hour crisis hotline for domestic abuse at Jerry Florence DO Mar 17, 2018 14:39
[2018-03-17] MEDS ORDERED: OXYC1TAB36 PO (14:54)
--- NOTE | 2018-03-17 15:04 | HHI.HP ---
[facility] Primary Care Physician Jody Clements MD Admission Diagnosis malig pleural effusion, shortness of breath Diagnoses: Chief Complaint: Shortness of breath Travel History International Travel<30 Days: No Contact w/Intl Traveler <30 Da: No Traveled to Known Affected Are: No History of Present Illness The patient is a 72-year-old female who was recently diagnosed with lung cancer who is presenting to the hospital with shortness of breath. The patient was recently admitted to the hospital where she had a thoracentesis and lung biopsy. She was discharged about 2-1/2 weeks ago. For the past day and a half she has been having increased shortness of breath. She has had left shoulder pain associated with that. She says last night the shortness of breath got a lot worse and then this morning it was unbearable and she was driven to the hospital. The patient said that she had a PET scan scheduled for today. She says she had a PET scan scheduled earlier but that also had to be rescheduled. The patient was found to have a large pleural effusion and had a thoracentesis performed which resulted in marked improvement in her symptoms. The patient is very hungry at this time and eager to go home. Discussed with her family and nursing at the bedside. Review of Systems Except as stated in HPI: all other systems reviewed are Neg Past Family Social History Past Medical History Hypercholesterolemia Hypothyroidism Lung cancer Allergies: Coded Allergies: erythromycin base (Verified Allergy, Intermediate, 03/17/18) Family History The patient denies pertinent family history Social History The patient quit smoking 13 years ago. She does not drink. Physical Exam Vital Signs Vital Signs Date Time Temp Pulse Resp B/P (MAP) Pulse Ox O2 Delivery O2 Flow Rate FiO2 03/17/18 12:30 98.2 84 22 138/84 (102) 96 03/17/18 11:48 Automatic Cuff 03/17/18 11:00 92 18 138/62 (87) 97 Nasal Cannula 2.00 03/17/18 10:42 100 16 136/86 (103) 98 Nasal Cannula 2.00 03/17/18 08:57 97.5 98 18 133/88 (103) 95 03/17/18 07:30 95 Nasal Cannula 2.00 03/17/18 06:41 97 Nasal Cannula 2.00 03/17/18 06:35 123 28 144/93 (110) 95 Nasal Cannula 2.00 03/17/18 06:31 98.1 130 28 167/89 (115) 92 Physical Exam GENERAL: This is a well-nourished, well-developed patient, in no apparent distress. SKIN: No rashes, ecchymoses or lesions. Cool and dry. HEAD: Atraumatic. Normocephalic. No temporal or scalp tenderness. EYES: Pupils equal round and reactive. Extraocular motions intact. No scleral icterus. No injection or drainage. ENT: Nose without bleeding, purulent drainage or septal hematoma. Throat without erythema, tonsillar hypertrophy or exudate. Uvula midline. Airway patent. NECK: Trachea midline. No JVD or lymphadenopathy. Supple, nontender, no meningeal signs. CARDIOVASCULAR: Regular rate and rhythm without murmurs, gallops, or rubs. RESPIRATORY: Clear to auscultation. Breath sounds equal bilaterally. No wheezes , rales, or rhonchi. GASTROINTESTINAL: Abdomen soft, non-tender, nondistended. No hepato-splenomegaly , or palpable masses. No guarding. MUSCULOSKELETAL: Extremities without clubbing, cyanosis, or edema. No joint tenderness, effusion, or edema noted. NEUROLOGICAL: Awake and alert. Cranial nerves II through XII intact. Motor and sensory grossly within normal limits. Five out of 5 muscle strength in all muscle groups. Normal speech. Laboratory Laboratory Tests Test 03/17/18 06:41 White Blood Count 8.1 Red Blood Count 5.16 Hemoglobin 12.3 Hematocrit 38.2 Mean Corpuscular Volume 74.1 Mean Corpuscular Hemoglobin 23.9 Mean Corpuscular Hemoglobin Concent 32.2 Red Cell Distribution Width 19.6 Platelet Count 435 Mean Platelet Volume 7.5 Neutrophils (%) (Auto) 73.4 Lymphocytes (%) (Auto) 16.1 Monocytes (%) (Auto) 7.3 Eosinophils (%) (Auto) 1.8 Basophils (%) (Auto) 1.4 Neutrophils # (Auto) 5.9 Lymphocytes # (Auto) 1.3 Monocytes # (Auto) 0.6 Eosinophils # (Auto) 0.1 Basophils # (Auto) 0.1 CBC Comment DIFF FINAL Differential Comment Prothrombin Time 10.8 Prothromb Time International Ratio 1.1 Activated Partial Thromboplast Time 31.7 Blood Urea Nitrogen 16 Creatinine 0.59 Random Glucose 75 Calcium Level 9.2 Magnesium Level 2.0 Sodium Level 140 Potassium Level 3.4 Chloride Level 108 Carbon Dioxide Level 16.9 Anion Gap 15 Estimat Glomerular Filtration Rate 101 Total Creatine Kinase 33 Troponin I LESS THAN 0.02 Result Diagram: 03/17/18 0641 03/17/1841 Imaging Last Impressions Chest X-Ray 03/17/18 0639 Signed Impressions: CONCLUSION: Interval increase in size of the left pleural effusion with complete opacificat ion left hemithorax and rightward shift of the mediastinum. Thoracentesis Ultrasound 03/17/18 0000 Signed Impressions: CONCLUSION: 1. Uncomplicated ultrasound-guided left thoracentesis. 2. The bulk of the opacity in the left hemithorax is a solid tumor. Caprini VTE Risk Assessment Caprini VTE Risk Assessment: Mod/High Risk (score >= 2) Caprini Risk Assessment Model Point Value = 1 Point Value = 2 Point Value = 3 Point Value = 5 Age 41-60 Minor surgery BMI > 25 kg/m2 Swollen legs Varicose veins or History of unexplained or recurrent spontaneous Oral contraceptives or hormone replacement Sepsis (< 1 month) Serious lung disease, including pneumonia (< 1 month) Abnormal pulmonary function Acute myocardial infarction Congestive heart failure (< 1 month) History of inflammatory bowel disease Medical patient at bed rest Age 61-74 Arthroscopic surgery Major open surgery (> 45 min) Laparoscopic surgery (> 45 min) Malignancy Confined to bed (> 72 hours) Immobilizing plaster cast Central venous access Age >= 75 History of VTE Family history of VTE Factor V Leiden Prothrombin [id number] Lupus anticoagulant Anticardiolipin antibodies Elevated serum homocysteine Heparin-induced thrombocytopenia Other congenital or acquired thrombophilia Stroke (< 1 month) Elective arthroplasty Hip, pelvis, or leg fracture Acute spinal cord injury (< 1 month) Prophylaxis Regimen Total Risk Factor Score Risk Level Prophylaxis Regimen 0-1 Low Early ambulation 2 Moderate Order ONE of the following: *Sequential Compression Device (SCD) *Heparin 5000 units SQ BID 3-4 Higher Order ONE of the following medications: *Heparin 5000 units SQ TID *Enoxaparin/Lovenox 40 mg SQ daily (WT < 150 kg, CrCl > 30 mL/min) *Enoxaparin/Lovenox 30 mg SQ daily (WT < 150 kg, CrCl > 10-29 mL/min) *Enoxaparin/Lovenox 30 mg SQ BID (WT < 150 kg, CrCl > 30 mL/min) AND/OR *Sequential Compression Device (SCD) 5 or more Highest Order ONE of the following medications: *Heparin 5000 units SQ TID (Preferred with Epidurals) *Enoxaparin/Lovenox 40 mg SQ daily (WT < 150 kg, CrCl > 30 mL/min) *Enoxaparin/Lovenox 30 mg SQ daily (WT < 150 kg, CrCl > 10-29 mL/min) *Enoxaparin/Lovenox 30 mg SQ BID (WT < 150 kg, CrCl > 30 mL/min) AND *Sequential Compression Device (SCD) Assessment and Plan Assessment and Plan Malignant pleural effusion The pt was recently diagnosed with lung cancer. She has had a thoracenteses performed x 2. Presents with acute shortness of breath. CXR shows: Interval increase in size of the left pleural effusion with complete opacification of the left hemithorax and rightward shift of the mediastinum. The pt is s/p thoracentesis by IR. The pt is asymptomatic and would like to go home. - repeat CXR pending. - discussed with oncology. The pt has a follow-up appointment on Tuesday. Will discharge with close follow-up. - pain control as needed. Hypokalemia Likely s/t decreased PO intake. - repleted. - ADAT. PPx: Ambulation Discussed Condition With Dr. Castellanos Physician Certification 2 Midnight Certification Type: Admission for Inpatient Services Order for Inpatient Services The services are ordered in accordance with Medicare regulations or non- Medicare payer requirements, as applicable. In the case of services not specified as inpatient-only, they are appropriately provided as inpatient services in accordance with the 2-midnight benchmark. Estimated LOS (days): 1 days is the estimated time the patient will need to remain in the hospital, assuming treatment plan goals are met and no additional complications. Post-Hospital Plan: Home Notes: D/c home with oncology follow-up on Tuesday. Repeat CXR pending. Jerry Florence DO Mar 17, 2018 15:04
--- NOTE | 2018-03-17 15:30 | RADRPT ---
EXAM DATE: 03/17/2018 3:22 PM EDT AGE/SEX: 72 years / Female INDICATIONS: Evaluate for pleural effusion. Left sided thoracentesis done today. CLINICAL DATA: This is the patient's initial encounter. Patient reports that signs and symptoms have been present for 1 day and indicates a pain score of 0/10. MEDICAL/SURGICAL HISTORY: Carcinoma, lung. . Tonsillectomy. Tubal ligation. Thoracentesis. COMPARISON: [facility] [place]ELVIS W [place]AST, 02/07/2018. . FINDINGS: There is increased density seen throughout much of the left hemithorax. Only a small amount of the le ft upper lung is aerated. There is a large left pleural effusion. Right lung appears clear. The left heart border is silhouetted. There are large peripherally calcified mass is seen in the left upper qu adrant. CONCLUSION: Large left pleural effusion with some atelectasis or consolidation throughout much of the left lung w ith aeration of only a portion of the left upper lobe. This process has worsened since the prior exam . Electronically signed by: Tayo Shearer MD 03/17/2018 3:28 PM EDT
[2018-03-17] MEDS ORDERED: ATORVASTATIN 20 MG TAB PO SCH (21:00)
== END 2018-03-17 16:39 | disposition home or self-care (01) | DRG 181 ==
LOC: NEPE 06:25 → NEDA 08:55 → HCIN 11:53 → HCIS 12:06 → HCIN 12:07
PROVIDERS: ADMIT Hospitalist; ATTEND Hospitalist
PROC: 0W9B3ZZ Drainage of Left Pleural Cavity, Percutaneous Approach (ICD-10-PCS; principal; 2018-03-17)
DX: C34.90 Malignant neoplasm of unspecified part of unspecified bronchus or lung (principal); J91.0 Malignant pleural effusion; E03.9 Hypothyroidism, unspecified; E78.00 Pure hypercholesterolemia, unspecified; E87.6 Hypokalemia
CPT/HCPCS: 32555; 71045; 71046; 80048; 82550; 83735; 84484; 85025; 85610; 85730; 93005; C1729

== ENCOUNTER 2018-04-07 09:21 | Inpatient (IN) ==
--- NOTE | 2018-04-07 10:03 | ED ---
HPI General Chief complaint: Respiratory Symptoms Stated complaint: SOB Time Seen by Provider: 04/07/18 09:42 History of Present Illness HPI narrative: Patient presents to the emergency department for "fluid moving back into the lungs." Dates that she did her first chemo treatment this week for lung cancer. Her doctor, Dr. Hopson, was going to admit her today for fluid drainage and pleurodesis. States she has had dyspnea since last night. She denies taking anything for the dyspnea, but states that she has had multiple drainage of the foot for the symptoms in the past. She denies fever, chills, vomiting, but reports nausea. She also denies chest pain, lower extremity edema, abdominal pain, cough. Related Data Home Medications Medication Instructions Recorded Confirmed atorvastatin 20 mg PO DAILY 03/27/18 04/07/18 ibuprofen-diphenhydramine cit 800 mg PO HS 03/27/18 04/07/18 [Motrin PM] folic acid 0.8 mg PO DAILY 04/07/18 04/07/18 levothyroxine 50 mcg PO DAILY 04/07/18 04/07/18 prochlorperazine maleate 10 mg PO Q6-8H PRN 04/07/18 04/07/18 Allergies Allergy/AdvReac Type Severity Reaction Status Date / Time erythromycin base Allergy Intermediate Nausea/Vomi Verified 04/07/18 09:52 ting Review of Systems ROS Unobtainable All other systems reviewed negative except as stated in HPI [facility] Social History Social History Substance History: No History of Abuse Second Hand Smoke Exposure: No Smoking Status: Former smoker How Often Do You Have a Drink Containing Alcohol: Monthly or less Recent Travel in [facility] within the Last 8 Weeks: No Recent Out of Country Travel within the Last 8 Weeks: No Immunization History Tetanus Immunization: <5 Years Hx Influenza Vaccine This Season: No Exam Narrative Exam Narrative: GENERAL: No acute distress. SKIN: Focused skin assessment warm/dry. HEAD: Atraumatic. Normocephalic. EYES: Pupils equal and round. No scleral icterus. No injection or drainage. ENT: No nasal bleeding or discharge. Mucous membranes pink and moist. NECK: Trachea midline. No JVD. CARDIOVASCULAR: Tachycardic, + ANGELA at LLSB. No murmur appreciated. RESPIRATORY: No accessory muscle use. Decrease breath sounds left lung base. GASTROINTESTINAL: Abdomen soft, non-tender, nondistended. Hepatic and splenic margins not palpable. MUSCULOSKELETAL: No obvious deformities. No clubbing. No cyanosis. No edema. NEUROLOGICAL: Awake and alert. No obvious cranial nerve deficits. Motor grossly within normal limits. Normal speech. PSYCHIATRIC: Appropriate mood and affect; insight and judgment normal. Course Initial Documented Vital Signs Temperature 98.5 F 04/07/18 09:26 Pulse Rate 124 H 04/07/18 09:26 Respiratory Rate 18 04/07/18 09:26 Blood Pressure 123/69 04/07/18 09:26 Pulse Oximetry 100 04/07/18 09:26 Last Documented Vital Signs Temperature 98.5 F 04/07/18 09:26 Pulse Rate 110 H 04/07/18 10:33 Respiratory Rate 12 04/07/18 10:33 Blood Pressure 109/69 04/07/18 10:33 Pulse Oximetry 95 04/07/18 10:33 Medical Decision Making MDM Narrative Medical decision making narrative: Patient presents to the emergency department for shortness of breath. Patient placed on a security monitor, continuous pulse ox, and IV access obtained. Chest x-ray, EKG, labs ordered. Patient given 4mg ODT zofran for nausea. She's taking compazine 10mg po at home, but reports nausea despite taking compazine. Spoke to Dr. iLnd, patient's doweler, states that she is to be admitted and is requesting IR place L chest tube and he plans for pleurodesis likely tomorrow. CBC within normal limits. CXR shows "Moderate left pleural effusion. Large left paramediastinal lung mass. Hyperinflated right lung characteristic of COPD." BUN and BNP increased. Decreased potassium. Patient given 20 mg p.o. KCl. Differential Diagnosis Differential Diagnosis: pneumonia, CHF, pulmonary edema, pleural effusion, ACS Lab Data Result diagrams: 04/07/18 10:25 04/07/18 10:25 Lab Results 04/07/18 04/07/18 04/07/18 Range/Units 10:25 10:25 10:25 WBC 7.5 (4.0-11.0) th/mm3 RBC 5.09 (4.00-5.30) mil/mm3 Hgb 11.8 (11.6-15.3) gm/dL Hct 37.2 (35.0-46.0) % MCV 73.0 L (80.0-100.0) fL MCH 23.2 L (27.0-34.0) pg MCHC 31.8 L (32.0-36.0) % RDW 19.0 H (11.6-17.2) % Plt Count 418 (150-450) th/mm3 MPV 7.1 (7.0-11.0) fL Neut % (Auto) 88.1 H (16.0-70.0) % Lymph % (Auto) 9.0 (9.0-44.0) % [place] % (Auto) 0.8 (0.0-8.0) % Eos % (Auto) 1.9 (0.0-4.0) % Baso % (Auto) 0.2 (0.0-2.0) % Neut # (Auto) 6.6 (1.8-7.7) th/mm3 Lymph # (Auto) 0.7 L (1.0-4.8) th/mm3 [place] # (Auto) 0.1 (0.0-0.9) th/mm3 Eos # (Auto) 0.1 (0.0-0.4) th/mm3 Baso # (Auto) 0.0 (0.0-0.2) th/mm3 WBC Differential . Differential Comment Auto diff final PT 10.2 (9.8-11.6) sec INR 1.0 Ratio APTT 27.1 (24.3-30.1) sec Sodium 139 (136-145) meq/L Potassium 3.4 L (3.5-5.1) meq/L Chloride 105 (98-107) meq/L Carbon Dioxide 24.2 (21.0-32.0) meq/L Anion Gap 10 (5-15) meq/L BUN 22 H (7-18) mg/dL Creatinine 0.54 (0.50-1.00) mg/dL Estimated GFR Greater than 89 (>89) mL/min Random Glucose 80 (74-106) mg/dL Calcium 8.5 (8.5-10.1) mg/dL Total Bilirubin 0.7 (0.2-1.0) mg/dL AST 23 (15-37) U/L ALT 18 (10-53) U/L Alkaline Phosphatase 83 (45-117) U/L Troponin I Less than 0.02 L (0.02-0.05) ng/mL B-Natriuretic Peptide (0-100) pg/mL Total Protein 7.2 (6.4-8.2) g/dL Albumin 2.8 L (3.4-5.0) g/dL 04/07/18 Range/Units 10:25 WBC (4.0-11.0) th/mm3 RBC (4.00-5.30) mil/mm3 Hgb (11.6-15.3) gm/dL Hct (35.0-46.0) % MCV (80.0-100.0) fL MCH (27.0-34.0) pg MCHC (32.0-36.0) % RDW (11.6-17.2) % Plt Count (150-450) th/mm3 MPV (7.0-11.0) fL Neut % (Auto) (16.0-70.0) % Lymph % (Auto) (9.0-44.0) % [place] % (Auto) (0.0-8.0) % Eos % (Auto) (0.0-4.0) % Baso % (Auto) (0.0-2.0) % Neut # (Auto) (1.8-7.7) th/mm3 Lymph # (Auto) (1.0-4.8) th/mm3 [place] # (Auto) (0.0-0.9) th/mm3 Eos # (Auto) (0.0-0.4) th/mm3 Baso # (Auto) (0.0-0.2) th/mm3 WBC Differential Differential Comment PT (9.8-11.6) sec INR Ratio APTT (24.3-30.1) sec Sodium (136-145) meq/L Potassium (3.5-5.1) meq/L Chloride (98-107) meq/L Carbon Dioxide (21.0-32.0) meq/L Anion Gap (5-15) meq/L BUN (7-18) mg/dL Creatinine (0.50-1.00) mg/dL Estimated GFR (>89) mL/min Random Glucose (74-106) mg/dL Calcium (8.5-10.1) mg/dL Total Bilirubin (0.2-1.0) mg/dL AST (15-37) U/L ALT (10-53) U/L Alkaline Phosphatase (45-117) U/L Troponin I (0.02-0.05) ng/mL B-Natriuretic Peptide 167 H (0-100) pg/mL Total Protein (6.4-8.2) g/dL Albumin (3.4-5.0) g/dL Imaging Data Radiologist's impression: ITS Impressions Chest X-Ray 04/07/18 09:58 CONCLUSION: Moderate left pleural effusion Large left paramediastinal lung mass Hyperinflated right lung characteristic of COPD. ECG Data EKG Prior to Arrival: No Attestation: I personally reviewed and interpreted this ECG as follows: (Sinus tachycardia 107, normal axis, normal intervals, QTC 374, low voltage) Discharge Plan Discharge Disposition Patient Disposition: 30 Still Patient Discharge Condition Condition: Stable Discharge Details Diagnosis: Pleural effusion Physicians Team ED Provider: Flavia Spence Primary Care Provider: Jody Clements Rxs /Orders / Referrals /Forms Prescriptions: No Action atorvastatin 20 mg Tablet 20 mg PO DAILY RF: 0 ibuprofen-diphenhydramine cit [Motrin PM] 200-38 mg Tablet 800 mg PO HS RF: 0 levothyroxine 50 mcg Tablet 50 mcg PO DAILY RF: 0 folic acid 800 mcg Tablet 0.8 mg PO DAILY RF: 0 prochlorperazine maleate 10 mg Tablet 10 mg PO Q6-8H PRN (Reason: Nausea) RF: 0 Status ED Status: With Doctor
--- NOTE | 2018-04-07 10:45 | XR ---
EXAM DATE: 04/07/2018 10:15 AM EDT AGE/SEX: 72 years / Female INDICATIONS: Shortness of breath and left sided chest pain. CLINICAL DATA: This is the patient's initial encounter. Patient reports that signs and symptoms have been present for 2 days and indicates a pain score of 4/10. MEDICAL/SURGICAL HISTORY: Carcinoma, lung. . Chemo port, right chest. [place] [facility] [place]. . FINDINGS: A moderate size left pleural effusion is noted. Left-sided anterior paramediastinal mass is again opal ntified. Right lung is hyperinflated but otherwise clear. Limzcy-b-Yubn catheter is in stable position. Rim calcified splenic cyst are again noted. CONCLUSION: Moderate left pleural effusion Large left paramediastinal lung mass Hyperinflated right lung characteristic of COPD. Electronically signed by: Otilio Costa MD 04/07/2018 10:43 AM EDT
[2018-04-07 10:52] LABS: Baso % (Auto) 0.2 % (0.0-2.0); Eos # (Auto) 0.1 th/mm3 (0.0-0.4); Eos % (Auto) 1.9 % (0.0-4.0); Hematocrit 37.2 % (35.0-46.0); Hemoglobin 11.8 gm/dL (11.6-15.3); Lymph # (Auto) 0.7 th/mm3 (1.0-4.8); Mean Corpuscular HGB Conc 31.8 % (32.0-36.0); Mean Corpuscular Hemoglobin 23.2 pg (27.0-34.0); Mean Platelet Volume 7.1 fL (7.0-11.0); Mono # (Auto) 0.1 th/mm3 (0.0-0.9); Mono % (Auto) 0.8 % (0.0-8.0); Neut # (Auto) 6.6 th/mm3 (1.8-7.7); Neut % (Auto) 88.1 % (16.0-70.0); Platelet Count 418 th/mm3 (150-450); Red Blood Count 5.09 mil/mm3 (4.00-5.30); White Blood Count 7.5 th/mm3 (4.0-11.0)
[2018-04-07 11:03] LABS: Activated Partial Thrombo Time 27.1 sec (24.3-30.1); Prothrombin Time 10.2 sec (9.8-11.6)
[2018-04-07 11:20] LABS: Alanine Aminotransferase 18 U/L (10-53); Albumin 2.8 g/dL (3.4-5.0); Anion Gap 10 meq/L (5-15); Aspartate Aminotransferase 23 U/L (15-37); Blood Urea Nitrogen 22 mg/dL (7-18); Calcium 8.5 mg/dL (8.5-10.1); Carbon Dioxide 24.2 meq/L (21.0-32.0); Chloride 105 meq/L (98-107); Glomerular Filtration Rate Greater Than 89 mL/min (>89); Glucose,Random 80 mg/dL (74-106); Potassium 3.4 meq/L (3.5-5.1); Sodium 139 meq/L (136-145)
[2018-04-07 11:24] LABS: Alkaline Phosphatase 83 U/L (45-117); Total Protein 7.2 g/dL (6.4-8.2)
[2018-04-07] MEDS ORDERED: fentaNYL Citrate Inj 100 MCG/2 ML Ampul ONE ×2 (12:39→13:23)
[2018-04-07] MEDS ORDERED: Bisacodyl 10 MG Supp RECTAL PRN (13:36)
[2018-04-07] MEDS ORDERED: Morphine Inj 4 MG/ML Vial IV.PUSH PRN (13:41)
--- NOTE | 2018-04-07 14:21 | P.RAD ---
Post CT Procedure Prog Note - Pre Procedure Diagnosis (1) Pleural effusion (2) Lung cancer - Post Procedure Diagnosis (1) Pleural effusion (2) Lung cancer - Procedure Information Supervising Radiologist: Otilio Costa MD Anesthesia: Local, Conscious Sedation - Plan of Activity Patient to Unit: Nursing Unit Patient condition: Fair See PACS Report for procedural detail/treatment. Drainage Procedure CT left Chest Tube Non-Tunneled [place] Tube Size: 10 Drainage: Pleurovac Fluid Removal (CCs): 350 Fluid Description: Cloudy, Red
--- NOTE | 2018-04-07 14:43 | XR ---
EXAM DATE: 04/07/2018 2:37 PM EDT AGE/SEX: 72 years / Female INDICATIONS: S/P chest tube placement, left chest. CLINICAL DATA: This is the patient's initial encounter. Patient reports that signs and symptoms have been present for 1 day and indicates a pain score of 0/10. MEDICAL/SURGICAL HISTORY: . Carcinoma, lung. . Chemo port, right chest. [place]PAR[place]: [facility] [place] 2[place] PA&LAT, 04/07/2018. . FINDINGS: A single frontal expiratory view of the chest was performed. There has been interval placement of a l eft basilar chest tube. Significant decrease in pleural effusion is noted. There is no evidence of pn eumothorax. Loculated pleural effusion remains evident in the left apex. The left paramediastinal mass is again noted. CONCLUSION: Left basilar chest tube inserted Decreased left pleural effusion Otherwise stable chest Electronically signed by: Otilio Costa MD 04/07/2018 2:41 PM EDT
--- NOTE | 2018-04-07 15:48 | CT ---
EXAM DATE: 04/07/2018 3:33 PM EDT AGE/SEX: 72 years / Female INDICATIONS: Left pleural effusion. CLINICAL DATA: This is the patient's initial encounter. Patient reports that signs and symptoms have been present for 1 day and indicates a pain score of 0/10. MEDICAL/SURGICAL HISTORY: Carcinoma, lung. None. MEDICATION(S): 2.5 midazolam (Versed) IV 125 fentanyl (Sublimaze) IV DEVICE(S): 10 Fr Concepcion . . COMPARISON: [facility] – [place], [place] NEEDLE BIOPSY LUNG, LEFT, 02/23/2018. . PROCEDURE : CT guided left chest tube placement. The risks, benefits and alternatives to the procedure were explained and verbal and written consent w as obtained. The site was prepped in sterile fashion. Full sterile technique was used, including ca p, mask, sterile gloves and gown and a large sterile sheet. Hand hygiene and 2% chlorhexidine and/or betadine/alcohol prep was utilized per protocol for cutaneous antisepsis. The skin and subcutaneous tissues were infiltrated with local anesthetic solution. Using automated exposure control and adjus tment of the mA and/or kV according to patient size, radiation dose was kept as low as reasonably ach ievable to obtain optimal diagnostic quality images. DICOM format image data is available electronic ally for review and comparison. With CT guidance the chest was punctured and the prescribed catheter was placed in the left lung base of the lung. Wall suction was applied. Post procedure images demonstrate satisfactory position of t he tube. The catheter was sutured in place and a Percu-Stay was applied. The patient tolerated the procedure well and there were no complications. The patient was sent to pos t anesthesia recovery in stable condition. FINDINGS: Chest tube was placed to Pleur-evac suction. A total of 350 cc of blood-tinged fluid was obtained. CONCLUSION: 1. Uncomplicated chest tube placement as above. 2. 350 cc of blood-tinged pleural fluid was evacuated. Electronically signed by: Otilio Costa MD 04/07/2018 3:47 PM EDT
--- NOTE | 2018-04-07 16:29 | P.HPIM ---
History of Present Illness Primary Care Physician: Jody Clements MD Chief Complaint: Shortness of breath History of Present Illness: The patient is a 72-year-old female with a recent diagnosis of lung cancer who is presenting to the hospital with a recurrent pleural effusion. The patient has been recently hospitalized for a pleural effusion. She says this is the fifth time she has come to the hospital recently. She has required multiple thoracenteses. She is being followed by oncology and she received her first dose of chemotherapy this week. She says she is asymptomatic besides her shortness of breath. She is status post chest tube placement in the emergency department. She says she saw her paper box maker prior to being admitted and there were plans to get pleurodesis performed for the recurrent effusions. The patient is currently breathing well. She denies any pain. She says she has been ambulatory. She denies any fevers. She is tolerating a diet. She does get nauseous at times and takes her nausea medications for that. Inpatient Certification: I certify that the inpatient services were ordered in accordance with Medicare regulations governing the order. This includes certification that hospital inpatient services are reasonable and necessary and in the case of services not specified as inpatient-only under 42 CFR 419.22(n), that they are appropriately provided as inpatient services in accordance to with the 2-midnight benchmark under 43 CFR 412.3(e) Estimated Total Length of Stay (Days): 3 Plans for Post Hospital Care: Not yet determined Review of Systems All other systems reviewed negative except as stated in HPI PMFSH - History History Provided By: Patient - Medical History Medical History: Medical History (Last Reviewed 03/30/18 @ 08:59 by Louie Johnson) Hypercholesterolemia (Acute) Hypothyroid (Acute) Lung cancer (Acute) - Surgical History Surgical History: Surgical History (Last Reviewed 03/30/18 @ 08:59 by Louie Johnson) H/O tubal ligation History of thoracentesis History of vascular access device - Family History Family History: Family History (Last Updated 04/07/18 @ 16:20 by Jerry Florence DO) Other Patient denies significant medical history - Tobacco History Second Hand Smoke Exposure: No Smoking Status: Former smoker - Alcohol History How Often Do You Have a Drink Containing Alcohol: Monthly or less - Substance Use History Substance History: No History of Abuse - Travel History Recent Travel in the [place] Within the Last 8 Weeks: No Recent Travel Out of the Country Within the Last 8 Weeks: No - Immunization History Tetanus Immunization: <5 Years Hx Influenza Vaccine This Season: No Medications and Allergies Active Medications: Active Medications Al Hydroxide/Mg Hydroxide (Milk Of Magnesia Liq) 30 ml PO Q12H PRN PRN Reason: Mild Constipation Atorvastatin Calcium (Lipitor) 20 mg PO DAILY REJI Bisacodyl (Dulcolax Supp) 10 mg RECTAL DAILY PRN PRN Reason: SEVERE CONSITIPATION Folic Acid (Folic Acid) 1 mg PO DAILY REJI Lactulose (Lactulose Liq) 30 ml PO DAILY PRN PRN Reason: SEVERE CONSITIPATION Levothyroxine Sodium (Synthroid) 50 mcg PO DAILY@0600 REJI Morphine Sulfate (Morphine Inj) 2 mg IV.PUSH Q4H PRN PRN Reason: PAIN 6-10;IF UNABLE TO TAKE PO Senna/Docusate Sodium (Sulema-Colace) 1 tab PO BID REJI Sennosides (Senokot) 17.2 mg PO Q12H PRN PRN Reason: Moderate Constipation Temazepam (Restoril) 15 mg PO HS PRN PRN Reason: INSOMNIA Allergies Allergy/AdvReac Type Severity Reaction Status Date / Time erythromycin base Allergy Intermediate Nausea/Vomi Verified 04/07/18 09:52 ting Home Medications Medication Instructions Recorded Confirmed Type atorvastatin 20 mg PO DAILY 03/27/18 04/07/18 History ibuprofen-diphenhydramine cit 800 mg PO HS 03/27/18 04/07/18 History [Motrin PM] folic acid 0.8 mg PO DAILY 04/07/18 04/07/18 History levothyroxine 50 mcg PO DAILY 04/07/18 04/07/18 History prochlorperazine maleate 10 mg PO Q6-8H PRN 04/07/18 04/07/18 History Exam Vital signs: Vital Signs 04/07/18 09:26 04/07/18 10:33 04/07/18 14:25 Temperature 98.5 F Pulse Rate 124 H 110 H 108 H Respiratory Rate 18 12 18 Blood Pressure 123/69 109/69 125/70 Pulse Oximetry 100 95 100 04/07/18 15:20 Temperature Pulse Rate 118 H Respiratory Rate 18 Blood Pressure 115/80 Pulse Oximetry 100 Intake & Output 04/06/18 04/07/18 04/07/18 18:59 06:59 18:59 Weight 51.71 kg Narrative: GENERAL: This is a frail patient, in no apparent distress. SKIN: No rashes, ecchymoses or lesions. Cool and dry. HEAD: Atraumatic. Normocephalic. No temporal or scalp tenderness. EYES: Pupils equal round and reactive. Extraocular motions intact. No scleral icterus. No injection or drainage. ENT: Nose without bleeding, purulent drainage or septal hematoma. Throat without erythema, tonsillar hypertrophy or exudate. Uvula midline. Airway patent. NECK: Trachea midline. No JVD or lymphadenopathy. Supple, nontender, no meningeal signs. CARDIOVASCULAR: Regular rate and rhythm without murmurs, gallops, or rubs. RESPIRATORY: Scattered rhonchi. GASTROINTESTINAL: Abdomen soft, non-tender, nondistended. No hepato-splenomegaly , or palpable masses. No guarding. MUSCULOSKELETAL: Extremities without clubbing, cyanosis, or edema. No joint tenderness, effusion, or edema noted. NEUROLOGICAL: Awake and alert. Cranial nerves II through XII intact. Motor and sensory grossly within normal limits. Five out of 5 muscle strength in all muscle groups. Normal speech. Results - Labs CBC & Chem 7: 04/07/18 10:25 04/07/18 10:25 Labs: Short CBC 04/07/18 Range/Units 10:25 WBC 7.5 (4.0-11.0) th/mm3 Hgb 11.8 (11.6-15.3) gm/dL Hct 37.2 (35.0-46.0) % Plt Count 418 (150-450) th/mm3 [facility] 04/07/18 10:25 Sodium 139 Potassium 3.4 L Chloride 105 Carbon Dioxide 24.2 BUN 22 H Creatinine 0.54 Calcium 8.5 Cardiac Enzymes 04/07/18 Range/Units 10:25 Troponin I Less than 0.02 L (0.02-0.05) ng/mL Liver Function 04/07/18 Range/Units 10:25 Total Bilirubin 0.7 (0.2-1.0) mg/dL AST 23 (15-37) U/L ALT 18 (10-53) U/L Alkaline Phosphatase 83 (45-117) U/L Albumin 2.8 L (3.4-5.0) g/dL - Imaging Impressions Chest X-Ray 04/07/18 09:58 CONCLUSION: Moderate left pleural effusion Large left paramediastinal lung mass Hyperinflated right lung characteristic of COPD. Chest Tube Insertion 04/07/18 10:51 CONCLUSION: 1. Uncomplicated chest tube placement as above. 2. 350 cc of blood-tinged pleural fluid was evacuated. Chest X-Ray 04/07/18 14:17 CONCLUSION: Left basilar chest tube inserted Decreased left pleural effusion Otherwise stable chest Caprini VTE Risk Assessment Caprini VTE Risk Assessment: Moderate/High Risk (score >= 2) Caprini Risk Assessment Model: Point Value = 1 Point Value = 2 Point Value = 3 Point Value = 5 Age 41-60 Minor surgery BMI > 25 kg/m2 Swollen legs Varicose veins or History of unexplained or recurrent spontaneous Oral contraceptives or hormone replacement Sepsis (< 1 month) Serious lung disease, including pneumonia (< 1 month) Abnormal pulmonary function Acute myocardial infarction Congestive heart failure (< 1 month) History of inflammatory bowel disease Medical patient at bed rest Age 61-74 Arthroscopic surgery Major open surgery (> 45 min) Laparoscopic surgery (> 45 min) Malignancy Confined to bed (> 72 hours) Immobilizing plaster cast Central venous access Age >= 75 History of VTE Family history of VTE Factor V Leiden Prothrombin [id number] Lupus anticoagulant Anticardiolipin antibodies Elevated serum homocysteine Heparin-induced thrombocytopenia Other congenital or acquired thrombophilia Stroke (< 1 month) Elective arthroplasty Hip, pelvis, or leg fracture Acute spinal cord injury (< 1 month) Prophylaxis Regimen: Total Risk Factor Score Risk Level Prophylaxis Regimen 0-1 Low Early ambulation 2 Moderate Order ONE of the following: *Sequential Compression Device (SCD) *Heparin 5000 units SQ BID 3-4 Higher Order ONE of the following medications: *Heparin 5000 units SQ TID *Enoxaparin/Lovenox 40 mg SQ daily (WT < 150 kg, CrCl > 30 mL/min) *Enoxaparin/Lovenox 30 mg SQ daily (WT < 150 kg, CrCl > 10-29 mL/min) *Enoxaparin/Lovenox 30 mg SQ BID (WT < 150 kg, CrCl > 30 mL/min) AND/OR *Sequential Compression Device (SCD) 5 or more Highest Order ONE of the following medications: *Heparin 5000 units SQ TID (Preferred with Epidurals) *Enoxaparin/Lovenox 40 mg SQ daily (WT < 150 kg, CrCl > 30 mL/min) *Enoxaparin/Lovenox 30 mg SQ daily (WT < 150 kg, CrCl > 10-29 mL/min) *Enoxaparin/Lovenox 30 mg SQ BID (WT < 150 kg, CrCl > 30 mL/min) AND *Sequential Compression Device (SCD) Assessment and Plan - Plan Malignant pleural effusion The pt was recently diagnosed with lung cancer. She has had multiple thoracenteses performed. She recently started chemotherapy. She followed with pulmonology who recommended repeat thoracentesis and pleurodesis. S/p chest tube placement by IR 04/07. - pulmonology consulted for pleurodesis. - chest tube per IR. - pain control as needed. - oxygen and nebs as needed. - incentive spirometry. Hypokalemia Likely s/t decreased PO intake and nausea. - replete and monitor. - ADAT. - continue home nausea regimen. PPx: Hold off on pharmacological prophylaxis as chest tube just placed Discussed Condition With: Patient, pt's family, ER physician
[2018-04-07] MEDS ORDERED: HYDROmorphone PF Inj 2 MG/ML Vial IV.PUSH ONE (18:00)
--- NOTE | 2018-04-07 20:55 | MB ---
cc: Lelo Lind MD, [place] W MD DATE: 04/07/2018 REASON FOR CONSULTATION: Lung cancer, left pleural effusion. HISTORY OF PRESENT ILLNESS: Mrs. 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 She did have a thoracentesis done 4 times previously with recurrent effusion. The patient was seen in my office yesterday. Plan is for hospitalization today and chest tube placement and subsequent pleurodesis were underway. However, she has become with worsening shortness of breath through the night, came to the emergency room today. Plan is for admission were undertaken and a left chest tube was inserted with improving shortness of breath. The patient denies history of fever, chills, cough or expectoration. Chest tube is in place. PAST MEDICAL HISTORY: Non-small cell lung cancer as mentioned above, pleural effusion and COPD. Hypothyroidism and chronic insomnia. SOCIAL HISTORY: The patient has a long heavy smoking history, does not smoke at present. FAMILY HISTORY: Noncontributory. REVIEW OF SYSTEMS: A 12-point review of systems as per HPI and past history, otherwise, negative. CURRENT MEDICATIONS: 1. DuoNeb. 2. Atorvastatin. 3. Levothyroxine. 4. Temazepam PHYSICAL EXAMINATION: GENERAL: The patient is alert. VITAL SIGNS: Temperature 98, pulse 90, respiration 18, blood pressure 120/70. Oxygen saturation 100% on oxygen 2 liters nasal cannula. HEENT: Unremarkable. Eyes without icterus. NECK: Without adenopathy or thyroid enlargement. CHEST: Left chest tube in place. CARDIAC: PMI not appreciated. S1, S2 audible. No murmur. No rub. ABDOMEN: Lax, bowel sounds audible. EXTREMITIES: No clubbing, cyanosis or edema. LABORATORY DATA: White count 7.5, hemoglobin 11.8, hematocrit 37, platelets 418,000. Sodium 139, potassium 3.4, BUN 22, creatinine 0.5, sodium 130. IMAGING STUDIES: Chest x-ray shows left chest tube in place, decreased left pleural effusion. IMPRESSION: 1. Left lung cancer, post-tube placement. 2. The patient started chemotherapy last week. 3. Chronic obstructive pulmonary disease. PLAN: 1. The patient is admitted to the hospital with continuous chest tube drainage. Subsequent pleurodesis will be undertaken. 2. Continue bronchodilator therapy. I do thank you for asking me to partake in Mrs. Alford's care. MD AMBROCIO Sullivan/ , 08:29 PM , 08:54 PM
[2018-04-07] MEDS ORDERED: Temazepam 15 MG Capsule PO PRN (21:00)
[2018-04-07] MEDS: Senna/Docusate Sodium 8.6/50 MG Tablet PO SCH (21:21)
[2018-04-08] MEDS: HYDROmorphone PF Inj 2 MG/ML Vial IV.PUSH PRN ×4 (02:03→19:46)
--- NOTE | 2018-04-08 05:23 | XR ---
EXAM DATE: 04/08/2018 4:53 AM EDT AGE/SEX: 72 years / Female INDICATIONS: Status post chest tube. CLINICAL DATA: This is the patient's subsequent encounter. Patient reports that signs and symptoms h ave been present for 3 days and indicates a pain score of 4/10. MEDICAL/SURGICAL HISTORY: . Carcinoma, lung. . Chemo port, right chest. COMPARISON: [facility] [place], 04/07/2018. . FINDINGS: Right chest port is stable in position. Left base pigtail thoracostomy tube is again noted. There is persistent diffuse pleural-parenchymal opacity on the left which presumably reflects mostly layering effusion. Likely minimal effusion on the right. CONCLUSION: Some apparent increase in pleural effusion. Electronically signed by: Tayo Rob MD 04/08/2018 5:22 AM EDT
[2018-04-08] MEDS: Levothyroxine 50 MCG Tablet PO SCH (06:35)
[2018-04-08] MEDS: Senna/Docusate Sodium 8.6/50 MG Tablet PO SCH ×2 (08:21→21:54)
--- NOTE | 2018-04-08 08:39 | ECG ---
Date Performed: 04/07/2018 Time Performed: 10:36:03 PTAGE: 72 years EKG: SINUS TACHYCARDIA LOW QRS VOLTAGE IN PRECORDIAL LEADS POSSIBLE RIGHT VENTRICULAR CONDUCTION DELAY SEPTAL MYOCARDIAL INFARCTION ABNORMAL ECG PREVIOUS TRACING : 03/17/2018 06.38 DOCTOR: Jonathan Carpenter Interpretating Date/Time 04/08/2018 08:37:09
[2018-04-08] MEDS: Folic Acid 1 MG Tablet PO SCH (09:43)
--- NOTE | 2018-04-08 13:51 | P.PN ---
Subjective Interval history: pain on chest tube site feeling better no nausea or vomting, no fever Physical Exam Vital signs: Vital Signs 04/07/18 14:25 04/07/18 15:20 04/07/18 16:29 Temperature Pulse Rate 108 H 118 H Respiratory Rate 18 18 Blood Pressure 125/70 115/80 94/63 L Pulse Oximetry 100 100 04/07/18 20:00 04/08/18 00:00 04/08/18 04:00 Temperature 97.4 F L 97.6 F 97.2 F L Pulse Rate 116 H 106 H 121 H Respiratory Rate 19 20 18 Blood Pressure 107/71 112/69 117/70 Pulse Oximetry 94 L 89 L 90 L 04/08/18 08:00 Temperature 97.6 F Pulse Rate 120 H Respiratory Rate 18 Blood Pressure 115/81 Pulse Oximetry 93 L Intake & Output 04/07/18 04/08/18 04/08/18 18:59 06:59 18:59 Output Total 50 / 50 Balance -50 / -50 Weight 51.71 kg 51.5 kg Output: Chest Tube Drainage 50 / 50 Left 50 / 50 Narrative: awake and alert, no acute distress anicteric lungs- decreased breath sounds left, no rales, no wheezes, pigtail catheter in place left regular rhytm abdomen- soft, nontender extremities no edmea - neruo exam- non focal Results - Labs CBC & Chem 7: 04/08/18 13:30 04/07/18 10:25 - Imaging Impressions Chest Tube Insertion 04/07/18 10:51 CONCLUSION: 1. Uncomplicated chest tube placement as above. 2. 350 cc of blood-tinged pleural fluid was evacuated. Chest X-Ray 04/07/18 14:17 CONCLUSION: Left basilar chest tube inserted Decreased left pleural effusion Otherwise stable chest Chest X-Ray 04/08/18 14:17 CONCLUSION: Some apparent increase in pleural effusion. Assessment and Plan - Plan 72 years old male REcurrent Malignant pleural effusion - recently diagnosed with lung cancer. She has had multiple thoracenteses performed. She recently started chemotherapy. She followed with pulmonology who recommended repeat thoracentesis and pleurodesis. S/p chest tube placement by IR 04/07. Dr. Lind pulmonology ff- plan for eventual pleurodesis. - chest tube per IR. 04/07 - pain control as needed. - oxygen and nebs as needed. - incentive spirometry. Hypokalemia recheck Likely s/t decreased PO intake and nausea. - replete and monitor. - ADAT. - continue home nausea regimen. PPx: Hold off on pharmacological prophylaxis as chest tube just placed TEDs Discussed Condition With: Patient, pt's family, ER physician
[2018-04-08 13:58] LABS: Hematocrit 34.8 % (35.0-46.0); Hemoglobin 11.2 gm/dL (11.6-15.3); Mean Corpuscular HGB Conc 32.1 % (32.0-36.0); Mean Corpuscular Hemoglobin 23.9 pg (27.0-34.0); Mean Corpuscular Volume 74.4 fL (80.0-100.0); Mean Platelet Volume 6.9 fL (7.0-11.0); Platelet Count 297 th/mm3 (150-450); Red Blood Count 4.67 mil/mm3 (4.00-5.30); Red Cell Distribution Width 19.2 % (11.6-17.2); White Blood Count 6.5 th/mm3 (4.0-11.0)
[2018-04-08 14:33] LABS: Anion Gap 12 meq/L (5-15); Blood Urea Nitrogen 15 mg/dL (7-18); Calcium 9.1 mg/dL (8.5-10.1); Carbon Dioxide 24.1 meq/L (21.0-32.0); Chloride 100 meq/L (98-107); Glomerular Filtration Rate Greater Than 89 mL/min (>89); Glucose,Random 89 mg/dL (74-106); Potassium 4.1 meq/L (3.5-5.1); Sodium 136 meq/L (136-145)
[2018-04-09] MEDS: HYDROmorphone PF Inj 2 MG/ML Vial IV.PUSH PRN ×4 (04:42→20:25)
[2018-04-09] MEDS: Levothyroxine 50 MCG Tablet PO SCH (06:00)
[2018-04-09] MEDS: Folic Acid 1 MG Tablet PO SCH (09:41)
[2018-04-09] MEDS: Senna/Docusate Sodium 8.6/50 MG Tablet PO SCH ×2 (09:41→20:27)
--- NOTE | 2018-04-09 12:30 | P.PN ---
Subjective Interval history: awake and alert no complains of pain- on CT site Physical Exam Vital signs: Vital Signs 04/08/18 16:00 04/08/18 19:45 04/08/18 20:00 Temperature 98 F 97.9 F Pulse Rate 101 H 109 H 108 H Respiratory Rate 18 23 Blood Pressure 109/73 109/66 Pulse Oximetry 95 95 04/08/18 20:16 04/09/18 00:00 04/09/18 00:30 Temperature 98 F Pulse Rate 103 H Respiratory Rate 20 18 Blood Pressure 88/60 L 96/58 L Pulse Oximetry 96 04/09/18 04:00 04/09/18 08:00 Temperature 98.2 F 97.7 F Pulse Rate 103 H 108 H Respiratory Rate 19 18 Blood Pressure 117/60 99/63 L Pulse Oximetry 96 94 L Intake & Output 04/08/18 04/09/18 04/09/18 18:59 06:59 18:59 Intake Total 480 / 480 Output Total 600 / 600 80 / 80 Balance -120 / -120 -80 / -80 Weight 51.5 kg Intake: Oral 480 / 480 Output: Urine 600 / 600 Chest Tube Drainage 80 / 80 Left 80 / 80 Other: Date of Last Bowel Movement 04/01/18 Narrative: awake and alert, no acute distress anicteric lungs- no rales, no wheezes, better breth sounds left, no decrease in vocal fremiti, pigtail catheter in place left regular rhythm abdomen- soft, nontender extremities no edema - neuro exam- non focal Results - Labs CBC & Chem 7: 04/08/18 13:30 04/08/18 13:30 Laboratory Results - last 24 hr 04/08/18 04/08/18 13:30 13:30 WBC 6.5 RBC 4.67 Hgb 11.2 L Hct 34.8 L MCV 74.4 L MCH 23.9 L MCHC 32.1 RDW 19.2 H Plt Count 297 MPV 6.9 L Sodium 136 Potassium 4.1 Chloride 100 Carbon Dioxide 24.1 Anion Gap 12 BUN 15 Creatinine 0.52 Estimated GFR Greater than 89 Random Glucose 89 Calcium 9.1 Assessment and Plan - Plan 72 years old male REcurrent Malignant pleural effusion - recently diagnosed with lung cancer. She has had multiple thoracenteses performed. She recently started chemotherapy. She followed with pulmonology who recommended repeat thoracentesis and pleurodesis. S/p chest tube placement by IR 04/07. Dr. Lind pulmonology ff- plan for eventual pleurodesis. - chest tube per IR. 04/07 - pain control as needed. - oxygen and nebs as needed. - incentive spirometry. Hypokalemia - corrected Likely s/t decreased PO intake and nausea.- better po intake - continue home prn nausea regimen. patient up and ambulating TEDs for DVT prophylaxis PPx: Hold off on pharmacological prophylaxis as chest tube just placed TEDs discussed with patient and hysband at bedside
--- NOTE | 2018-04-09 16:29 | XR ---
EXAM DATE: 04/09/2018 4:19 PM EDT AGE/SEX: 72 years / Female INDICATIONS: Shortness of breath. CLINICAL DATA: This is the patient's subsequent encounter. Patient reports that signs and symptoms h ave been present for 2 days and indicates a pain score of 0/10. MEDICAL/SURGICAL HISTORY: Carcinoma, lung. . Port for chemotherapy. Chest tube. COMPARISON: [facility] – [place], [place]ST EXPIRATION ONLY, 04/07/2018. . FINDINGS: The cardiac silhouette is enlarged in transverse diameter. [id number] is in place via right rn internal medicine al jugular approach with its tip in the superior vena cava. There is elevation of the left hemidiaphr agm. A small caliber chest tube is present in the left base. There is no evidence of pneumothorax. Mo derate left-sided effusion persists. The right lung is free of acute parenchymal opacity. Large pauline cified cysts remain in the left upper quadrant within the spleen. CONCLUSION: Continued left-sided effusion. There is no evidence of pneumothorax. There has been no significant ch kayla when compared to the prior exam. Electronically signed by: Chapo Davis MD 04/09/2018 4:28 PM EDT
[2018-04-10] MEDS: HYDROmorphone PF Inj 2 MG/ML Vial IV.PUSH PRN ×3 (01:17→14:42)
[2018-04-10] MEDS: Levothyroxine 50 MCG Tablet PO SCH (06:29)
[2018-04-10] MEDS: Folic Acid 1 MG Tablet PO SCH (08:43)
[2018-04-10] MEDS: Senna/Docusate Sodium 8.6/50 MG Tablet PO SCH ×2 (08:43→22:35)
--- NOTE | 2018-04-10 10:56 | P.PNIM ---
Subjective Interval history: PATIENT HAD CHEST TUBE ON LEFT PLACED BY IR ON 04-07 [facility] RN AND PT AND WILL DEFER TO IR/PULMONARY WHEN THEY WANT TO REMOVE THE CHEST TUBE DENIES SOB OR NAUSEA OR VOMITING OR CHEST PAIN AT THIS TIME Physical Exam Vital signs: Vital Signs 04/09/18 12:00 04/09/18 16:00 04/09/18 20:00 Temperature 98 F 98.3 F 98.7 F Pulse Rate 101 H 105 H 106 H Respiratory Rate 18 18 20 Blood Pressure 99/59 L 99/59 L 110/68 Pulse Oximetry 95 95 93 L 04/09/18 20:25 04/10/18 00:00 04/10/18 00:30 Temperature Pulse Rate 112 H 100 H Respiratory Rate 20 Blood Pressure 102/60 Pulse Oximetry 04/10/18 01:28 04/10/18 02:00 04/10/18 04:00 Temperature 97.8 F Pulse Rate 101 H Respiratory Rate 20 18 18 Blood Pressure 92/59 L Pulse Oximetry 93 L 04/10/18 08:00 Temperature 97.9 F Pulse Rate 106 H Respiratory Rate 17 Blood Pressure 103/60 Pulse Oximetry 93 L Intake & Output 04/09/18 04/10/18 04/10/18 18:59 06:59 18:59 Intake Total 480 / 480 480 / 480 Output Total 530 / 530 Balance 480 / 480 -50 / -50 Weight 51.3 kg Intake: Oral 480 / 480 480 / 480 Output: Urine 500 / 500 Chest Tube Drainage 30 / 30 Left 30 / 30 Other: Date of Last Bowel Movement 04/01/18 # Bowel Movements 0 Narrative: GENERAL: AWAKE ALERT AND ORIENTED X3 TALKATIVE AND COOPERATIVE- THIN FEMALE SKIN: Warm and dry. HEAD: Atraumatic. Normocephalic. EYES: Pupils equal and round. No scleral icterus. No injection or drainage. ENT: No nasal bleeding or discharge. Mucous membranes pink and moist. NECK: Trachea midline. No JVD. CARDIOVASCULAR: Regular rate and rhythm. S1, S2 NO S3 OR S4 NO HEAVE OR THRILL RESPIRATORY: No accessory muscle use. DECREASED BREATH SOUNDS ON THE LEFT-LEFT SIDED CHEST TUBE IN PLACE STILL. Breath sounds equal bilaterally. GASTROINTESTINAL: Abdomen soft, non-tender, nondistended. Hepatic and splenic margins not palpable. MUSCULOSKELETAL: Extremities without clubbing, cyanosis, or edema. No obvious deformities. NEUROLOGICAL: Awake and alert. No obvious cranial nerve deficits. Motor grossly within normal limits. 4 out of 5 muscle strength in the arms and legs. Normal speech. PSYCHIATRIC: Appropriate mood and affect; insight and judgment normal. Results - Labs CBC & Chem 7: 04/08/18 13:30 04/08/18 13:30 - Imaging Impressions Chest X-Ray 04/09/18 16:08 CONCLUSION: Continued left-sided effusion. There is no evidence of pneumothorax. There has been no significant change when compared to the prior exam. Assessment and Plan - Plan 72 years old male REcurrent Malignant pleural effusion - recently diagnosed with lung cancer. She has had multiple thoracenteses performed. She recently started chemotherapy. She followed with pulmonology who recommended repeat thoracentesis and pleurodesis. S/p chest tube placement by IR 04/07. Dr. Lind pulmonology ff- plan for eventual pleurodesis. - chest tube per IR. 04/07 - pain control as needed. - oxygen and nebs as needed. - incentive spirometry. Hypokalemia - corrected Likely s/t decreased PO intake and nausea.- better po intake - continue home prn nausea regimen. patient up and ambulating TEDs for DVT prophylaxis PPx: Hold off on pharmacological prophylaxis as chest tube just placed TEDs AM LABS PT AND OT discussed with patient and at bedside Discussed Condition With: RN AND PT AND CM AND Discharge Planning: PENDING PULMONARY AND IR CLEARANCE SINCE STILL HAS LEFT SIDED CHEST TUBE IN PLACE
--- NOTE | 2018-04-10 12:28 | CT ---
EXAM DATE: 04/10/2018 12:16 PM EDT AGE/SEX: 72 years / Female INDICATIONS: Follow up left pleural effusion. CLINICAL DATA: This is the patient's subsequent encounter. Patient reports that signs and symptoms h ave been present for 3 days and indicates a pain score of 4/10. MEDICAL/SURGICAL HISTORY: Carcinoma, lung. Chemotherapy. None. RADIATION DOSE: 8.67 CTDI (mGy) COMPARISON: [facility], CT CHEST W/ CONTRAST, 02/07/2018. [facility], CHEST 1V SINGLE AP, 04/09/2018. . TECHNIQUE: Multiple contiguous axial images were obtained through the chest without contrast. Image s were obtained in suspended respiration using multiple row detector helical technique. Using automa jovan exposure control and adjustment of the mA and/or kV according to patient size, radiation dose was kept as low as reasonably achievable to obtain optimal diagnostic quality images. DICOM format imag e data is available electronically for review and comparison. FINDINGS: Lungs: Large left lung mass again seen with invasion of the heart and mediastinal structures. Severe emphysema. Right apical scarring. Mediastinum: There is good visualization of the great vessels of the middle mediastinum. No evidenc e of mediastinal or hilar adenopathy/mass. Pleurae: Left-sided chest tube in the lower left hemithorax. Very minimal amount of fluid inferiorly . There is also minimal fluid along the left apex.. Axillae: Unremarkable. Bony Structures: Unremarkable. Miscellaneous: The examination was extended to include the upper abdomen, and calcified splenic stru ctures again seen. CONCLUSION: 1. Left-sided chest tube. Minimal amount of left pleural fluid. 2. Large left upper lobe/mediastinal mass again seen. Electronically signed by: Won Salvador MD 04/10/2018 12:27 PM EDT
--- NOTE | 2018-04-10 17:12 | P.PN ---
Subjective Interval history: ALERT NO SOB CT CHEST , MINIMAL EFFUSION SEEN Physical Exam Vital signs: Vital Signs 04/09/18 20:00 04/09/18 20:25 04/10/18 00:00 Temperature 98.7 F Pulse Rate 106 H 112 H 100 H Respiratory Rate 20 20 Blood Pressure 110/68 Pulse Oximetry 93 L 04/10/18 00:30 04/10/18 01:28 04/10/18 02:00 Temperature Pulse Rate Respiratory Rate 20 18 Blood Pressure 102/60 Pulse Oximetry 04/10/18 04:00 04/10/18 08:00 04/10/18 12:00 Temperature 97.8 F 97.9 F 97.9 F Pulse Rate 101 H 106 H 101 H Respiratory Rate 18 17 16 Blood Pressure 92/59 L 103/60 95/60 L Pulse Oximetry 93 L 93 L 96 04/10/18 12:27 04/10/18 15:50 04/10/18 16:00 Temperature 97.9 F Pulse Rate 110 H 103 H 104 H Respiratory Rate 18 Blood Pressure 116/66 Pulse Oximetry 95 Intake & Output 04/09/18 04/10/18 04/10/18 18:59 06:59 18:59 Intake Total 480 / 480 480 / 480 Output Total 530 / 530 Balance 480 / 480 -50 / -50 Weight 51.3 kg Intake: Oral 480 / 480 480 / 480 Output: Urine 500 / 500 Chest Tube Drainage 30 / Left 30 / Other: Date of Last Bowel Movement 04/01/18 # Bowel Movements 0 Narrative: GENERAL: AWAKE ALERT AND ORIENTED X3 TALKATIVE AND COOPERATIVE- THIN FEMALE SKIN: Warm and dry. HEAD: Atraumatic. Normocephalic. EYES: Pupils equal and round. No scleral icterus. No injection or drainage. ENT: No nasal bleeding or discharge. Mucous membranes pink and moist. NECK: Trachea midline. No JVD. CARDIOVASCULAR: Regular rate and rhythm. S1, S2 NO S3 OR S4 NO HEAVE OR THRILL RESPIRATORY: No accessory muscle use. DECREASED BREATH SOUNDS ON THE LEFT-LEFT SIDED CHEST TUBE IN PLACE STILL. Breath sounds equal bilaterally. GASTROINTESTINAL: Abdomen soft, non-tender, nondistended. Hepatic and splenic margins not palpable. MUSCULOSKELETAL: Extremities without clubbing, cyanosis, or edema. No obvious deformities. NEUROLOGICAL: Awake and alert. No obvious cranial nerve deficits. Motor grossly within normal limits. 4 out of 5 muscle strength in the arms and legs. Normal speech. PSYCHIATRIC: Appropriate mood and affect; insight and judgment normal. Results - Labs CBC & Chem 7: 04/08/18 13:30 04/08/18 13:30 - Imaging Impressions Chest CT 04/10/18 00:00 CONCLUSION: 1. Left-sided chest tube. Minimal amount of left pleural fluid. 2. Large left upper lobe/mediastinal mass again seen. Assessment and Plan - Plan LUNG CA PLEURAL EFFUSION COPD PLAN O2 FOR PLEURODESIS
[2018-04-11] MEDS: Levothyroxine 50 MCG Tablet PO SCH (06:51)
[2018-04-11 08:26] LABS: Baso % (Auto) 0.8 % (0.0-2.0); Eos # (Auto) 0.1 th/mm3 (0.0-0.4); Eos % (Auto) 2.2 % (0.0-4.0); Hematocrit 33.6 % (35.0-46.0); Hemoglobin 10.7 gm/dL (11.6-15.3); Lymph # (Auto) 0.6 th/mm3 (1.0-4.8); Lymph % (Auto) 18.1 % (9.0-44.0); Mean Corpuscular HGB Conc 31.8 % (32.0-36.0); Mean Corpuscular Hemoglobin 23.1 pg (27.0-34.0); Mean Corpuscular Volume 72.8 fL (80.0-100.0); Mean Platelet Volume 7.2 fL (7.0-11.0); Mono # (Auto) 0.4 th/mm3 (0.0-0.9); Neut # (Auto) 2.4 th/mm3 (1.8-7.7); Neut % (Auto) 68.9 % (16.0-70.0); Platelet Count 187 th/mm3 (150-450); Red Blood Count 4.61 mil/mm3 (4.00-5.30); Red Cell Distribution Width 17.9 % (11.6-17.2); White Blood Count 3.5 th/mm3 (4.0-11.0)
[2018-04-11 08:34] LABS: INR 1.1 Ratio; Prothrombin Time 10.9 sec (9.8-11.6)
[2018-04-11 08:49] LABS: Alanine Aminotransferase 15 U/L (10-53); Albumin 2.4 g/dL (3.4-5.0); Anion Gap 11 meq/L (5-15); Aspartate Aminotransferase 22 U/L (15-37); Blood Urea Nitrogen 15 mg/dL (7-18); Calcium 8.7 mg/dL (8.5-10.1); Carbon Dioxide 24.8 meq/L (21.0-32.0); Chloride 102 meq/L (98-107); Glomerular Filtration Rate Greater Than 89 mL/min (>89); Magnesium 1.9 mg/dL (1.5-2.5); Potassium 3.5 meq/L (3.5-5.1); Sodium 138 meq/L (136-145)
[2018-04-11 08:58] LABS: Alkaline Phosphatase 73 U/L (45-117); Free T4 (Free Thyroxine) 1.54 ng/dL (0.76-1.46); Glucose,Random 81 mg/dL (74-106); Phosphorus 3.3 mg/dL (2.5-4.9); Thyroid Stimulating Hormone 0.811 uIU/mL (0.358-3.740); Total Protein 6.6 g/dL (6.4-8.2)
[2018-04-11] MEDS: Senna/Docusate Sodium 8.6/50 MG Tablet PO SCH ×2 (09:00→21:06)
[2018-04-11] MEDS: Folic Acid 1 MG Tablet PO SCH (09:00)
[2018-04-11] MEDS ORDERED: Cathflo Activase Inj 2 MG Vial I-CATHETER ONE (10:45)
--- NOTE | 2018-04-11 10:45 | P.PNIM ---
Subjective Interval history: 04-10 PATIENT HAD CHEST TUBE ON LEFT PLACED BY IR ON 04-07 [facility] RN AND PT AND WILL DEFER TO IR/PULMONARY WHEN THEY WANT TO REMOVE THE CHEST TUBE DENIES SOB OR NAUSEA OR VOMITING OR CHEST PAIN AT THIS TIME 04-11 PATIENT TO GET TPA INFUSED IN CT PER RADIOLOGY TO HOPEFULLY HAVE PLEURODESIS WITH IR TOMORROW AM LAB FAMILY IS UNHAPPY [facility] RN AND PT AND CM Physical Exam Vital signs: Vital Signs 04/10/18 12:00 04/10/18 12:27 04/10/18 15:50 Temperature 97.9 F Pulse Rate 101 H 110 H 103 H Respiratory Rate 16 Blood Pressure 95/60 L Pulse Oximetry 96 04/10/18 16:00 04/10/18 20:00 04/11/18 00:00 Temperature 97.9 F 98.1 F 97.9 F Pulse Rate 104 H 108 H 103 H Respiratory Rate 18 17 18 Blood Pressure 116/66 107/59 L 108/61 Pulse Oximetry 95 94 L 94 L 04/11/18 04:00 04/11/18 08:00 Temperature 98.8 F 98.2 F Pulse Rate 106 H 105 H Respiratory Rate 18 18 Blood Pressure 103/57 L 104/67 Pulse Oximetry 94 L 96 Intake & Output 04/10/18 04/11/18 04/11/18 18:59 06:59 18:59 Intake Total 720 / 720 0 / 0 Output Total 610 / 610 800 / 800 Balance 110 / 110 -800 / -800 Weight 51.3 kg Intake: Oral 720 / 720 0 / 0 Output: Urine 600 / 600 800 / 800 Chest Tube Drainage 10 / 10 Left 10 / 10 Other: # Bowel Movements 0 Narrative: GENERAL: AWAKE ALERT AND ORIENTED X3 TALKATIVE AND COOPERATIVE- THIN FEMALE SKIN: Warm and dry. HEAD: Atraumatic. Normocephalic. EYES: Pupils equal and round. No scleral icterus. No injection or drainage. ENT: No nasal bleeding or discharge. Mucous membranes pink and moist. NECK: Trachea midline. No JVD. CARDIOVASCULAR: Regular rate and rhythm. S1, S2 NO S3 OR S4 NO HEAVE OR THRILL RESPIRATORY: No accessory muscle use. DECREASED BREATH SOUNDS ON THE LEFT-LEFT SIDED CHEST TUBE IN PLACE STILL. Breath sounds equal bilaterally. GASTROINTESTINAL: Abdomen soft, non-tender, nondistended. Hepatic and splenic margins not palpable. MUSCULOSKELETAL: Extremities without clubbing, cyanosis, or edema. No obvious deformities. NEUROLOGICAL: Awake and alert. No obvious cranial nerve deficits. Motor grossly within normal limits. 4 out of 5 muscle strength in the arms and legs. Normal speech. PSYCHIATRIC: Appropriate mood and affect; insight and judgment normal. Results - Labs CBC & Chem 7: 04/11/18 07:00 04/11/18 07:02 Laboratory Results - last 24 hr 04/11/18 04/11/18 04/11/18 07:00 07:02 07:02 WBC 3.5 L RBC 4.61 Hgb 10.7 L Hct 33.6 L MCV 72.8 L MCH 23.1 L MCHC 31.8 L RDW 17.9 H Plt Count 187 D MPV 7.2 Neut % (Auto) 68.9 Lymph % (Auto) 18.1 [place] % (Auto) 10.0 H Eos % (Auto) 2.2 Baso % (Auto) 0.8 Neut # (Auto) 2.4 Lymph # (Auto) 0.6 L [place] # (Auto) 0.4 Eos # (Auto) 0.1 Baso # (Auto) 0.0 WBC Differential . Differential Comment Auto diff final PT 10.9 INR 1.1 Sodium 138 Potassium 3.5 Chloride 102 Carbon Dioxide 24.8 Anion Gap 11 BUN 15 Creatinine 0.58 Estimated GFR Greater than 89 Random Glucose 81 Calcium 8.7 Phosphorus 3.3 Magnesium 1.9 Total Bilirubin 0.6 AST 22 ALT 15 Alkaline Phosphatase 73 Total Protein 6.6 D Albumin 2.4 L TSH 0.811 Free T4 1.54 H - Imaging Impressions Chest CT 04/10/18 00:00 CONCLUSION: 1. Left-sided chest tube. Minimal amount of left pleural fluid. 2. Large left upper lobe/mediastinal mass again seen. Assessment and Plan - Plan 72 years old male REcurrent Malignant pleural effusion - recently diagnosed with lung cancer. She has had multiple thoracenteses performed. She recently started chemotherapy. She followed with pulmonology who recommended repeat thoracentesis and pleurodesis. S/p chest tube placement by IR 04/07. Dr. Lind pulmonology ff- plan for eventual pleurodesis. - chest tube per IR. 04/07 - pain control as needed. - oxygen and nebs as needed. - incentive spirometry. TO HAVE TPA IN CT ON 04-11 HOPEFULLY TO HAVE PLEURODESIS ON LEFT SIDE ON 04-12 VIA INTERVENTIONAL RADIOLOGY Hypokalemia - corrected Likely s/t decreased PO intake and nausea.- better po intake - continue home prn nausea regimen. patient up and ambulating TEDs for DVT prophylaxis PPx: Hold off on pharmacological prophylaxis as chest tube just placed TEDs AM LABS PT AND OT discussed with patient and at bedside DW [employer] AM LABS Code Status: FULL CODE Discussed Condition With: RN AND PT AND IR RN AND CM Discharge Planning: PENDING PULMONARY AND IR CLEARANCE SINCE STILL HAS LEFT SIDED CHEST TUBE IN PLACE
[2018-04-11] MEDS ORDERED: Potassium Chloride 10 MEQ ER Capsule PO ONE (10:46)
[2018-04-11] MEDS: HYDROmorphone PF Inj 2 MG/ML Vial IV.PUSH PRN ×3 (10:56→21:15)
[2018-04-11 12:54] LABS: Hemoglobin A1c 5.6 % (4.3-6.0)
--- NOTE | 2018-04-11 21:00 | P.PNPL ---
Subjective Interval history: 72 YOWF with ca lung, pl ef has Chest tube Had Pleurodesis done by IR Mild chest discomfort no SOB Physical Exam Vital signs: Vital Signs 04/11/18 00:00 04/11/18 04:00 04/11/18 08:00 Temperature 97.9 F 98.8 F 98.2 F Pulse Rate 103 H 106 H 111 H Respiratory Rate 18 18 18 Blood Pressure 108/61 103/57 L 104/67 Pulse Oximetry 94 L 94 L 96 04/11/18 12:00 04/11/18 16:00 Temperature 97.9 F 98.1 F Pulse Rate 121 H 113 H Respiratory Rate 18 18 Blood Pressure 103/60 93/59 L Pulse Oximetry 94 L 94 L Intake & Output 04/11/18 04/11/18 04/12/18 06:59 18:59 06:59 Intake Total 0 / 0 600 / 600 Output Total 800 / 800 250 / 250 Balance -800 / -800 350 / 350 Weight 51.3 kg Intake: Oral 0 / 0 600 / 600 Output: Urine 800 / 800 250 / 250 GENERAL: Thin built WF,NAD SKIN: Warm and dry. HEAD: Normocephalic. EYES: No scleral icterus. No injection or drainage. NECK: Supple, trachea midline. No JVD or lymphadenopathy. CARDIOVASCULAR: Regular rate and rhythm without murmurs, gallops, or rubs. RESPIRATORY: Breath sounds equal bilaterally. No accessory muscle use. GASTROINTESTINAL: Abdomen soft, non-tender, nondistended. MUSCULOSKELETAL: No cyanosis, or edema. BACK: Nontender without obvious deformity. No CVA tenderness. Assessment and Plan - Plan IMPRESSION: Ca Lung Pleural effusion COPD Weight loss PLAN: Chest tube to drain Had Pleurodesis done by IR Supplement 02 Chest tube management per IR
[2018-04-12] MEDS: HYDROmorphone PF Inj 2 MG/ML Vial IV.PUSH PRN ×3 (01:28→15:44)
[2018-04-12] MEDS: Senna/Docusate Sodium 8.6/50 MG Tablet PO SCH ×2 (08:06→22:12)
[2018-04-12] MEDS: Folic Acid 1 MG Tablet PO SCH (08:06)
--- NOTE | 2018-04-12 12:26 | P.PNIM ---
Subjective Interval history: 04-10 PATIENT HAD CHEST TUBE ON LEFT PLACED BY IR ON 04-07 DW RN AND PT AND WILL DEFER TO IR/PULMONARY WHEN THEY WANT TO REMOVE THE CHEST TUBE DENIES SOB OR NAUSEA OR VOMITING OR CHEST PAIN AT THIS TIME 04-11 PATIENT TO GET TPA INFUSED IN CT PER RADIOLOGY TO HOPEFULLY HAVE PLEURODESIS WITH IR TOMORROW AM LAB FAMILY IS UNHAPPY DW RN AND PT AND CM 04-12 PLEURODESIS NOT DONE YET DUE TO TOO MUCH FLUID OUTPUT DW RN AND PT AND FAMILY AND CM AM LABS HOPEFULLY FOR PLEURODESIS IF OUTPUT DECREASES Physical Exam Vital signs: Vital Signs 04/11/18 16:00 04/11/18 20:00 04/12/18 00:00 Temperature 98.1 F 98 F 97.9 F Pulse Rate 113 H 119 H 118 H Respiratory Rate 18 18 19 Blood Pressure 93/59 L 115/76 109/67 Pulse Oximetry 94 L 95 96 04/12/18 01:33 04/12/18 04:00 04/12/18 06:35 Temperature 97.4 F L Pulse Rate 113 H Respiratory Rate 18 16 18 Blood Pressure 106/64 Pulse Oximetry 94 L 04/12/18 08:00 Temperature 97.9 F Pulse Rate 126 H Respiratory Rate 20 Blood Pressure 110/66 Pulse Oximetry 94 L Intake & Output 04/11/18 04/12/18 04/12/18 18:59 06:59 18:59 Intake Total 600 / 600 480 / 480 Output Total 250 / 250 1100 / 1100 Balance 350 / 350 -620 / -620 Weight 51.5 kg Intake: Oral 600 / 600 480 / 480 Output: Urine 250 / 250 900 / 900 Chest Tube Drainage 200 / 200 Left 200 / 200 Other: Date of Last Bowel Movement 04/01/18 Narrative: GENERAL: AWAKE ALERT AND ORIENTED X3 TALKATIVE AND COOPERATIVE- THIN FEMALE SKIN: Warm and dry. HEAD: Atraumatic. Normocephalic. EYES: Pupils equal and round. No scleral icterus. No injection or drainage. ENT: No nasal bleeding or discharge. Mucous membranes pink and moist. NECK: Trachea midline. No JVD. CARDIOVASCULAR: Regular rate and rhythm. S1, S2 NO S3 OR S4 NO HEAVE OR THRILL RESPIRATORY: No accessory muscle use. DECREASED BREATH SOUNDS ON THE LEFT-LEFT SIDED CHEST TUBE IN PLACE STILL. Breath sounds equal bilaterally. GASTROINTESTINAL: Abdomen soft, non-tender, nondistended. Hepatic and splenic margins not palpable. MUSCULOSKELETAL: Extremities without clubbing, cyanosis, or edema. No obvious deformities. NEUROLOGICAL: Awake and alert. No obvious cranial nerve deficits. Motor grossly within normal limits. 4 out of 5 muscle strength in the arms and legs. Normal speech. PSYCHIATRIC: Appropriate mood and affect; insight and judgment normal. Results - Labs CBC & Chem 7: 04/11/18 07:00 04/11/18 07:02 Laboratory Results - last 24 hr 04/11/18 07:02 Hemoglobin A1c 5.6 - Imaging Chest X-Ray 04/07/18 09:58 CONCLUSION: Moderate left pleural effusion Large left paramediastinal lung mass Hyperinflated right lung characteristic of COPD. Chest Tube Insertion 04/07/18 10:51 CONCLUSION: 1. Uncomplicated chest tube placement as above. 2. 350 cc of blood-tinged pleural fluid was evacuated. Chest X-Ray 04/07/18 14:17 CONCLUSION: Left basilar chest tube inserted Decreased left pleural effusion Otherwise stable chest Chest X-Ray 04/08/18 14:17 CONCLUSION: Some apparent increase in pleural effusion. Chest X-Ray 04/09/18 16:08 CONCLUSION: Continued left-sided effusion. There is no evidence of pneumothorax. There has been no significant change when compared to the prior exam. Chest CT 04/10/18 00:00 CONCLUSION: 1. Left-sided chest tube. Minimal amount of left pleural fluid. 2. Large left upper lobe/mediastinal mass again seen. - Procedures CHEST TUBE ON THE LEFT Assessment and Plan - Plan 72 years old male REcurrent Malignant pleural effusion - recently diagnosed with lung cancer. She has had multiple thoracenteses performed. She recently started chemotherapy. She followed with pulmonology who recommended repeat thoracentesis and pleurodesis. S/p chest tube placement by IR 04/07. Dr. Lind pulmonology ff- plan for eventual pleurodesis. - chest tube per IR. 04/07 - pain control as needed. - oxygen and nebs as needed. - incentive spirometry. TO HAVE TPA IN CT ON 04-11 HOPEFULLY TO HAVE PLEURODESIS ON LEFT SIDE ON 04-13 VIA INTERVENTIONAL RADIOLOGY Hypokalemia - corrected Likely s/t decreased PO intake and nausea.- better po intake - continue home prn nausea regimen. patient up and ambulating TEDs for DVT prophylaxis PPx: Hold off on pharmacological prophylaxis as chest tube just placed TEDs AM LABS PT AND OT discussed with patient and at bedside DW SCIENTIFIC AIDE HOPEFULLY FOR PLEURODESIS ON 04-13 AM LABS Discussed Condition With: RN AND PT AND CM AND FAMILY Discharge Planning: PENDING PULMONARY AND IR CLEARANCE SINCE STILL HAS LEFT SIDED CHEST TUBE IN PLACE
[2018-04-12] MEDS ORDERED: LIDOCAINE TOPICAL SCH (12:45)
[2018-04-12] MEDS ORDERED: SODIUM CHLORIDE TOPICAL SCH (12:45)
[2018-04-12] MEDS ORDERED: DOXYCYCLINE TOPICAL SCH (12:45)
--- NOTE | 2018-04-12 17:36 | P.RAD ---
Post Procedure Progress Note - Pre Procedure Diagnosis (1) Pleural effusion - Post Procedure Diagnosis (1) Pleural effusion - Procedure Information Procedure Date: 04/12/18 Supervising Radiologist: Marquez Fitzgerald MD Estimated blood loss (mL): 0 Anesthesia: Analgesia - Plan of Activity Patient to Unit: Nursing Unit Patient Condition: Fair Additional Comments: Pt arrived for pleurodesis. Chest tube was dislodged and at skin surface. Tube removed. CXR ordered See PACS Report for procedural detail/treatment.
--- NOTE | 2018-04-12 19:15 | XR ---
EXAM DATE: 04/12/2018 6:13 PM EDT AGE/SEX: 72 years / Female INDICATIONS: Left sided chest tube removal CLINICAL DATA: This is the patient's initial encounter. Patient reports that signs and symptoms have been present for 1 day and indicates a pain score of 5/10. MEDICAL/SURGICAL HISTORY: . Carcinoma, lung. . Port for chemotherapy [place] [facility] [place]. . FINDINGS: Interval removal of left chest tube. No evidence of pneumothorax. There is persistent opacity at the left apex and increasing consolidation in the mid and left lower lung with increasing elevation of th e left hemidiaphragm. The right lung is clear. [id number] catheter tip in the right atrium. Stable calcified left upper quadrant cysts. CONCLUSION: 1. No evidence of pneumothorax status post left chest tube removal. 2. Persistent left pleural effusion and increasing consolidation in the left lung. Electronically signed by: Richard Busch MD 04/12/2018 7:13 PM EDT
--- NOTE | 2018-04-12 21:12 | P.PNPL ---
Subjective Interval history: 72 YOWF with ca lung, pl ef Pleurodesis was not done yesterday( had TPA) Today chest tube was dislodged and pleurodesis not done Mild chest discomfort no SOB Physical Exam Vital signs: Vital Signs 04/12/18 00:00 04/12/18 01:33 04/12/18 04:00 Temperature 97.9 F 97.4 F L Pulse Rate 118 H 113 H Respiratory Rate 19 18 16 Blood Pressure 109/67 106/64 Pulse Oximetry 96 94 L 04/12/18 06:35 04/12/18 08:00 04/12/18 12:00 Temperature 97.9 F 98.2 F Pulse Rate 128 H 106 H Respiratory Rate 18 20 20 Blood Pressure 110/66 92/58 L Pulse Oximetry 94 L 95 04/12/18 16:00 Temperature 97.4 F L Pulse Rate 108 H Respiratory Rate 20 Blood Pressure 93/62 L Pulse Oximetry 96 Intake & Output 04/12/18 04/12/18 04/13/18 06:59 18:59 06:59 Intake Total 480 / 480 480 / 480 Output Total 1100 / 1100 350 / 350 Balance -620 / -620 130 / 130 Weight 51.5 kg Intake: Oral 480 / 480 480 / 480 Output: Urine 900 / 900 350 / 350 Chest Tube Drainage 200 / 200 Left 200 / 200 Other: Date of Last Bowel Movement 04/01/18 GENERAL: Thin built WF,NAD SKIN: Warm and dry. HEAD: Normocephalic. EYES: No scleral icterus. No injection or drainage. NECK: Supple, trachea midline. No JVD or lymphadenopathy. CARDIOVASCULAR: Regular rate and rhythm without murmurs, gallops, or rubs. RESPIRATORY: Breath sounds equal bilaterally. No accessory muscle use. GASTROINTESTINAL: Abdomen soft, non-tender, nondistended. MUSCULOSKELETAL: No cyanosis, or edema. BACK: Nontender without obvious deformity. No CVA tenderness. Assessment and Plan - Plan IMPRESSION: Ca Lung Pleural effusion COPD Weight loss PLAN: Supplement 02 Rpt CXr If reoccurance of pl fluid, will need chest tube and pleurodesis DW pt and her
[2018-04-13] MEDS: Levothyroxine 50 MCG Tablet PO SCH ×2 (06:40→06:41)
[2018-04-13 07:50] LABS: Baso % (Auto) 0.6 % (0.0-2.0); Eos # (Auto) 0.1 th/mm3 (0.0-0.4); Eos % (Auto) 2.7 % (0.0-4.0); Hematocrit 32.3 % (35.0-46.0); Hemoglobin 10.4 gm/dL (11.6-15.3); Lymph # (Auto) 0.5 th/mm3 (1.0-4.8); Lymph % (Auto) 15.6 % (9.0-44.0); Mean Corpuscular HGB Conc 32.4 % (32.0-36.0); Mean Corpuscular Hemoglobin 23.6 pg (27.0-34.0); Mean Corpuscular Volume 72.9 fL (80.0-100.0); Mean Platelet Volume 7.3 fL (7.0-11.0); Mono # (Auto) 0.5 th/mm3 (0.0-0.9); Neut # (Auto) 2.1 th/mm3 (1.8-7.7); Neut % (Auto) 66.1 % (16.0-70.0); Platelet Count 178 th/mm3 (150-450); Red Blood Count 4.43 mil/mm3 (4.00-5.30); Red Cell Distribution Width 18.2 % (11.6-17.2); White Blood Count 3.2 th/mm3 (4.0-11.0)
[2018-04-13 07:52] LABS: INR 1.1 Ratio; Prothrombin Time 11.4 sec (9.8-11.6)
[2018-04-13] MEDS: HYDROmorphone PF Inj 2 MG/ML Vial IV.PUSH PRN ×2 (08:00→10:35)
[2018-04-13 08:22] LABS: Albumin 2.3 g/dL (3.4-5.0); Anion Gap 9 meq/L (5-15); Aspartate Aminotransferase 20 U/L (15-37); Blood Urea Nitrogen 17 mg/dL (7-18); Calcium 8.3 mg/dL (8.5-10.1); Carbon Dioxide 25.7 meq/L (21.0-32.0); Chloride 101 meq/L (98-107); Glomerular Filtration Rate Greater Than 89 mL/min (>89); Glucose,Random 88 mg/dL (74-106); Magnesium 1.8 mg/dL (1.5-2.5); Potassium 3.6 meq/L (3.5-5.1); Sodium 136 meq/L (136-145)
[2018-04-13 08:24] LABS: Alanine Aminotransferase 16 U/L (10-53); Alkaline Phosphatase 75 U/L (45-117); Phosphorus 3.1 mg/dL (2.5-4.9); Total Protein 6.7 g/dL (6.4-8.2)
[2018-04-13] MEDS: Senna/Docusate Sodium 8.6/50 MG Tablet PO SCH ×2 (10:34→20:57)
[2018-04-13] MEDS: Folic Acid 1 MG Tablet PO SCH (10:35)
--- NOTE | 2018-04-13 11:07 | P.PNIM ---
Subjective Interval history: 04-10 PATIENT HAD CHEST TUBE ON LEFT PLACED BY IR ON 04-07 DW RN AND PT AND WILL DEFER TO IR/PULMONARY WHEN THEY WANT TO REMOVE THE CHEST TUBE DENIES SOB OR NAUSEA OR VOMITING OR CHEST PAIN AT THIS TIME 04-11 PATIENT TO GET TPA INFUSED IN CT PER RADIOLOGY TO HOPEFULLY HAVE PLEURODESIS WITH IR TOMORROW AM LAB FAMILY IS UNHAPPY DW RN AND PT AND CM 04-12 PLEURODESIS NOT DONE YET DUE TO TOO MUCH FLUID OUTPUT DW RN AND PT AND FAMILY AND CM AM LABS HOPEFULLY FOR PLEURODESIS IF OUTPUT DECREASES 04-13 HAD CHEST TUBE ON RIGHT REMOVED YESTERDAY WILL GET CHEST XRAY TODAY NO PLEURODESIS SCHEDULED DW RN AND PT AND FAMILY AND CM MAY NEED ANOTHER CHEST TUBE IN FUTURE Physical Exam Vital signs: Vital Signs 04/12/18 12:00 04/12/18 16:00 04/12/18 20:00 Temperature 98.2 F 97.4 F L 98.4 F Pulse Rate 106 H 108 H 117 H Respiratory Rate 20 20 18 Blood Pressure 92/58 L 93/62 L 100/67 Pulse Oximetry 95 96 98 04/12/18 20:27 04/13/18 00:00 04/13/18 04:00 Temperature 98.4 F 98.8 F Pulse Rate 110 H 104 H 99 H Respiratory Rate 18 18 Blood Pressure 92/64 L 93/66 L Pulse Oximetry 97 95 04/13/18 04:06 04/13/18 06:46 04/13/18 08:00 Temperature 98.5 F Pulse Rate 106 H 114 H Respiratory Rate 16 Blood Pressure 110/67 92/65 L Pulse Oximetry 98 Intake & Output 04/12/18 04/13/18 04/13/18 18:59 06:59 18:59 Intake Total 480 / 480 360 / 360 Output Total 350 / 350 Balance 130 / 130 360 / 360 Weight 52.8 kg Intake: Oral 480 / 480 360 / 360 Output: Urine 350 / 350 Other: # Voids 2 # Bowel Movements 0 Narrative: GENERAL: AWAKE ALERT AND ORIENTED X3 TALKATIVE AND COOPERATIVE- THIN FEMALE SKIN: Warm and dry. HEAD: Atraumatic. Normocephalic. EYES: Pupils equal and round. No scleral icterus. No injection or drainage. ENT: No nasal bleeding or discharge. Mucous membranes pink and moist. NECK: Trachea midline. No JVD. CARDIOVASCULAR: Regular rate and rhythm. S1, S2 NO S3 OR S4 NO HEAVE OR THRILL RESPIRATORY: No accessory muscle use. DECREASED BREATH SOUNDS ON THE LEFT. Breath sounds equal bilaterally. GASTROINTESTINAL: Abdomen soft, non-tender, nondistended. Hepatic and splenic margins not palpable. MUSCULOSKELETAL: Extremities without clubbing, cyanosis, or edema. No obvious deformities. NEUROLOGICAL: Awake and alert. No obvious cranial nerve deficits. Motor grossly within normal limits. 4 out of 5 muscle strength in the arms and legs. Normal speech. PSYCHIATRIC: Appropriate mood and affect; insight and judgment normal. Results - Labs CBC & Chem 7: 04/13/18 07:14 04/13/18 07:14 Laboratory Results - last 24 hr 04/13/18 04/13/18 04/13/18 07:14 07:14 07:14 WBC 3.2 L RBC 4.43 Hgb 10.4 L Hct 32.3 L MCV 72.9 L MCH 23.6 L MCHC 32.4 RDW 18.2 H Plt Count 178 MPV 7.3 Neut % (Auto) 66.1 Lymph % (Auto) 15.6 Lucas % (Auto) 15.0 H Eos % (Auto) 2.7 Baso % (Auto) 0.6 Neut # (Auto) 2.1 Lymph # (Auto) 0.5 L Lucas # (Auto) 0.5 Eos # (Auto) 0.1 Baso # (Auto) 0.0 WBC Differential . Differential Comment Auto diff final PT 11.4 INR 1.1 Sodium 136 Potassium 3.6 Chloride 101 Carbon Dioxide 25.7 Anion Gap 9 BUN 17 Creatinine 0.58 Estimated GFR Greater than 89 Random Glucose 88 Calcium 8.3 L Phosphorus 3.1 Magnesium 1.8 Total Bilirubin 0.6 AST 20 ALT 16 Alkaline Phosphatase 75 Total Protein 6.7 Albumin 2.3 L - Imaging Impressions Chest X-Ray 04/12/18 00:00 CONCLUSION: 1. No evidence of pneumothorax status post left chest tube removal. 2. Persistent left pleural effusion and increasing consolidation in the left lung. - Procedures CHEST TUBE ON THE LEFT LEFT CHEST TUBE REMOVAL 04-12 Assessment and Plan - Plan 72 years old male REcurrent Malignant pleural effusion - recently diagnosed with lung cancer. She has had multiple thoracenteses performed. She recently started chemotherapy. She followed with pulmonology who recommended repeat thoracentesis and pleurodesis. S/p chest tube placement by IR 04/07. Dr. Lind pulmonology ff- plan for eventual pleurodesis. - chest tube per IR. 04/07 - pain control as needed. - oxygen and nebs as needed. - incentive spirometry. TO HAVE TPA IN CT ON 04-11 HAD LEFT SIDE CHEST TUBE REMOVED NEEDS CHEST XRAY Hypokalemia - corrected Likely s/t decreased PO intake and nausea.- better po intake - continue home prn nausea regimen. patient up and ambulating TEDs for DVT prophylaxis PPx: Hold off on pharmacological prophylaxis as chest tube just placed TEDs AM LABS PT AND OT discussed with patient and at bedside XRAYS TODAY AND TOMORROW AM LABS Discussed Condition With: DEXTER RN AND PT AND FAMILY AND CM Discharge Planning: PENDING PULMONARY AND IR CLEARANCE MAY NEED ANOTHER CHEST TUBE IN FUTURE
--- NOTE | 2018-04-13 14:36 | XR ---
EXAM DATE: 04/13/2018 2:25 PM EDT AGE/SEX: 72 years / Female INDICATIONS: . Pleural effusion. CLINICAL DATA: This is the patient's subsequent encounter. Patient reports that signs and symptoms h ave been present for 1 month and indicates a pain score of 0/10. MEDICAL/SURGICAL HISTORY: Carcinoma, lung. . Infuse a port. COMPAR[place]: [facility] [place], 04/12/2018 CT scan of the chest 04/10/2018. . FINDINGS: PA and lateral views of the chest demonstrate a large mass involving the left anterior chest. This is unchanged. Small left pleural effusion is unchanged. Right lung is clear. No effusion on the right. Heart is mildly enlarged. Port-A-Cath overlies the right chest. Rim calcified splenic cysts noted wit hin the left upper quadrant. CONCLUSION: Unchanged exam with left chest mass and small left pleural effusion. Electronically signed by: Richard Anne MD 04/13/2018 2:34 PM EDT
--- NOTE | 2018-04-13 17:07 | P.PNPL ---
Subjective Interval history: 72 YOWF with ca lung, pl ef Mild chest discomfort no SOB Anxious to go home Physical Exam Vital signs: Vital Signs 04/12/18 20:00 04/12/18 20:27 04/13/18 00:00 Temperature 98.4 F 98.4 F Pulse Rate 117 H 110 H 104 H Respiratory Rate 18 18 Blood Pressure 100/67 92/64 L Pulse Oximetry 98 97 04/13/18 04:00 04/13/18 04:06 04/13/18 06:46 Temperature 98.8 F Pulse Rate 99 H 106 H Respiratory Rate 18 Blood Pressure 93/66 L 110/67 Pulse Oximetry 95 04/13/18 08:00 04/13/18 12:00 04/13/18 16:00 Temperature 98.5 F 97.9 F 97.9 F Pulse Rate 115 H 120 H 117 H Respiratory Rate 16 20 20 Blood Pressure 92/65 L 101/61 98/70 L Pulse Oximetry 98 96 95 Intake & Output 04/12/18 04/13/18 04/13/18 18:59 06:59 18:59 Intake Total 480 / 480 360 / 360 Output Total 350 / 350 Balance 130 / 130 360 / 360 Weight 52.8 kg Intake: Oral 480 / 480 360 / 360 Output: Urine 350 / 350 Other: # Voids 2 # Bowel Movements 0 GENERAL: Thin built WF,NAD SKIN: Warm and dry. HEAD: Normocephalic. EYES: No scleral icterus. No injection or drainage. NECK: Supple, trachea midline. No JVD or lymphadenopathy. CARDIOVASCULAR: Regular rate and rhythm without murmurs, gallops, or rubs. RESPIRATORY: Breath sounds equal bilaterally. No accessory muscle use. GASTROINTESTINAL: Abdomen soft, non-tender, nondistended. MUSCULOSKELETAL: No cyanosis, or edema. BACK: Nontender without obvious deformity. No CVA tenderness. Assessment and Plan - Plan IMPRESSION: Ca Lung Pleural effusion COPD Weight loss PLAN: Supplement 02 Rpt CXr If reoccurance of pl fluid, will need chest tube and pleurodesis DW pt and her Willing to go home and come back for pleurodesis when fluid re accamulates
[2018-04-14 04:20] VITALS: TEMP 98.5
[2018-04-14 08:42] LABS: Baso % (Auto) 0.7 % (0.0-2.0); Eos # (Auto) 0.1 th/mm3 (0.0-0.4); Eos % (Auto) 2.4 % (0.0-4.0); Hematocrit 32.3 % (35.0-46.0); Hemoglobin 10.3 gm/dL (11.6-15.3); Lymph # (Auto) 0.4 th/mm3 (1.0-4.8); Lymph % (Auto) 14.1 % (9.0-44.0); Mean Corpuscular Hemoglobin 23.4 pg (27.0-34.0); Mean Corpuscular Volume 73.2 fL (80.0-100.0); Mean Platelet Volume 7.6 fL (7.0-11.0); Mono # (Auto) 0.5 th/mm3 (0.0-0.9); Neut # (Auto) 2.1 th/mm3 (1.8-7.7); Neut % (Auto) 66.8 % (16.0-70.0); Platelet Count 158 th/mm3 (150-450); Red Blood Count 4.41 mil/mm3 (4.00-5.30); Red Cell Distribution Width 18.3 % (11.6-17.2); White Blood Count 3.2 th/mm3 (4.0-11.0)
[2018-04-14 09:03] LABS: Albumin 2.3 g/dL (3.4-5.0); Anion Gap 12 meq/L (5-15); Aspartate Aminotransferase 20 U/L (15-37); Blood Urea Nitrogen 16 mg/dL (7-18); Carbon Dioxide 23.4 meq/L (21.0-32.0); Chloride 102 meq/L (98-107); Glomerular Filtration Rate Greater Than 89 mL/min (>89); Glucose,Random 92 mg/dL (74-106); Potassium 3.5 meq/L (3.5-5.1); Sodium 137 meq/L (136-145)
[2018-04-14] MEDS: HYDROmorphone PF Inj 2 MG/ML Vial IV.PUSH PRN (09:03)
[2018-04-14] MEDS: Levothyroxine 50 MCG Tablet PO SCH ×2 (09:03→09:09)
[2018-04-14] MEDS: Folic Acid 1 MG Tablet PO SCH (09:03)
[2018-04-14 09:05] LABS: Alanine Aminotransferase 14 U/L (10-53); Phosphorus 2.9 mg/dL (2.5-4.9)
[2018-04-14 09:07] LABS: Alkaline Phosphatase 74 U/L (45-117); Total Protein 6.6 g/dL (6.4-8.2)
[2018-04-14] MEDS: Senna/Docusate Sodium 8.6/50 MG Tablet PO SCH (09:09)
--- NOTE | 2018-04-14 09:22 | XR ---
EXAM DATE: 04/14/2018 8:14 AM EDT AGE/SEX: 72 years / Female INDICATIONS: . Pleural effusion. CLINICAL DATA: This is the patient's subsequent encounter. Patient reports that signs and symptoms h ave been present for 4 - 6 days and indicates a pain score of 0/10. MEDICAL/SURGICAL HISTORY: . Hypercholesterolemia. Lung cancer. Hyperlipidemia. . Tonsillectomy. . Tubal ligation. Thoracentesis. COMPARISON: [place], CHEST 2V PA&LAT, 04/13/2018. . FINDINGS: Right IJ [id number] is present with tip overlapping the expected region of the SVC. There is incre ased opacity wrapping around the left lung worse in the left apex not significantly changed character istic of pleural effusion. There is a large mass occupying most of the left upper lobe extending to t he left hilum highly suspicious for malignancy measures over 12 cm in size. Rim-like calcifications a re again seen adjacent to the hemidiaphragm on the left side not significantly changed. The rest of t he examination has not changed. CONCLUSION: Huge malignant appearing mass in the left lung with loculated pleural effusion not significantly vasquez ged. Electronically signed by: Karen Gardiner MD 04/14/2018 9:21 AM EDT
--- NOTE | 2018-04-14 09:33 | P.PNIM ---
Subjective Interval history: f/u; pleural effusion resting comfortably with no sob or pain. afebrile. no new complaints. Physical Exam Vital signs: Vital Signs 04/13/18 12:00 04/13/18 16:00 04/13/18 20:00 Temperature 97.9 F 97.9 F 98.6 F Pulse Rate 120 H 107 H 114 H Respiratory Rate 20 20 16 Blood Pressure 101/61 98/70 L 91/60 L Pulse Oximetry 96 95 94 L 04/13/18 20:23 04/13/18 21:03 04/13/18 23:48 Temperature Pulse Rate 108 H 107 H Respiratory Rate Blood Pressure 98/58 L Pulse Oximetry 04/14/18 00:00 04/14/18 03:57 04/14/18 04:00 Temperature 99.2 F 98.5 F Pulse Rate 106 H 114 H 104 H Respiratory Rate 16 16 Blood Pressure 98/61 L 97/58 L Pulse Oximetry 93 L 93 L Intake & Output 04/13/18 04/14/18 04/14/18 18:59 06:59 18:59 Intake Total 600 / 600 480 / 480 Balance 600 / 600 480 / 480 Weight 52.3 kg Intake: Oral 600 / 600 480 / 480 Other: # Voids 6 2 Date of Last Bowel Movement 04/11/18 # Bowel Movements 1 0 - Constitutional no acute distress - Routine Respiratory Exam Present: CTA bilaterally - Routine Cardiovascular Exam Present: RRR - Routine Abdominal Exam Present: soft - Routine Extremities Exam Comments: no pedal edema. - Routine Neurological Exam Present: alert, oriented X3 Results - Labs CBC & Chem 7: 04/14/18 06:49 04/14/18 06:49 Laboratory Results - last 24 hr 04/14/18 04/14/18 06:49 06:49 WBC 3.2 L RBC 4.41 Hgb 10.3 L Hct 32.3 L MCV 73.2 L MCH 23.4 L MCHC 32.0 RDW 18.3 H Plt Count 158 MPV 7.6 Neut % (Auto) 66.8 Lymph % (Auto) 14.1 [place] % (Auto) 16.0 H Eos % (Auto) 2.4 Baso % (Auto) 0.7 Neut # (Auto) 2.1 Lymph # (Auto) 0.4 L [place] # (Auto) 0.5 Eos # (Auto) 0.1 Baso # (Auto) 0.0 WBC Differential . Differential Comment Auto diff final Sodium 137 Potassium 3.5 Chloride 102 Carbon Dioxide 23.4 Anion Gap 12 BUN 16 Creatinine 0.62 Estimated GFR Greater than 89 Random Glucose 92 Calcium 9.0 Phosphorus 2.9 Magnesium 2.0 Total Bilirubin 0.6 AST 20 ALT 14 Alkaline Phosphatase 74 Total Protein 6.6 Albumin 2.3 L - Imaging Impressions Chest X-Ray 04/13/18 00:00 CONCLUSION: Unchanged exam with left chest mass and small left pleural effusion. Chest X-Ray 04/14/18 06:00 CONCLUSION: Huge malignant appearing mass in the left lung with loculated pleural effusion not significantly changed. - Procedures CHEST TUBE ON THE LEFT LEFT CHEST TUBE REMOVAL 04-12 Assessment and Plan - Plan Recurrent Malignant pleural effusion - recently diagnosed with lung cancer. She has had multiple thoracenteses performed. She recently started chemotherapy. She followed with pulmonology who recommended repeat thoracentesis and pleurodesis. S/p chest tube placement by IR 04/07- chest tube was removed two days ago. Dr. Lind pulmonology ff- plan for eventual pleurodesis. Hypokalemia - corrected Likely s/t decreased PO intake and nausea.- better po intake - continue home prn nausea regimen. patient up and ambulating TEDs for DVT prophylaxis Discharge Planning: when cleared by pulmonary.
[2018-04-14 09:41] VITALS: BP 103/65; RESP 20
[2018-04-14 10:35] VITALS: PULSE 117
--- NOTE | 2018-04-14 10:54 | P.DS ---
Date of admission: 04/07/18 13:03 Primary care physician: Jody Clements MD Brief History from admission: The patient is a 72-year-old female with a recent diagnosis of lung cancer who is presenting to the hospital with a recurrent pleural effusion. The patient has been recently hospitalized for a pleural effusion. She says this is the fifth time she has come to the hospital recently. She has required multiple thoracenteses. She is being followed by oncology and she received her first dose of chemotherapy this week. She says she is asymptomatic besides her shortness of breath. She is status post chest tube placement in the emergency department. She says she saw her service unit operator prior to being admitted and there were plans to get pleurodesis performed for the recurrent effusions. The patient is currently breathing well. She denies any pain. She says she has been ambulatory. She denies any fevers. She is tolerating a diet. She does get nauseous at times and takes her nausea medications for that. DS: Summary Hospital Course: patient was admitted with recurrent pleural effusion. chest tube was placed. her sob improved - chest tube was removed and pleural effusion after the chest tube removal remained stable.she was cleared by pulmonary for discharge with outpatient follow-up. - Time Spent with Patient Total time spent providing and/or coordinating discharge services: Exam Vital signs: Vital Signs 04/13/18 12:00 04/13/18 16:00 04/13/18 20:00 Temperature 97.9 F 97.9 F 98.6 F Pulse Rate 120 H 107 H 114 H Respiratory Rate 20 20 16 Blood Pressure 101/61 98/70 L 91/60 L Pulse Oximetry 96 95 94 L 04/13/18 20:23 04/13/18 21:03 04/13/18 23:48 Temperature Pulse Rate 108 H 107 H Respiratory Rate Blood Pressure 98/58 L Pulse Oximetry 04/14/18 00:00 04/14/18 03:57 04/14/18 04:00 Temperature 99.2 F 98.5 F Pulse Rate 106 H 114 H 104 H Respiratory Rate 16 16 Blood Pressure 98/61 L 97/58 L Pulse Oximetry 93 L 93 L 04/14/18 08:00 Temperature 98.5 F Pulse Rate 117 H Respiratory Rate 20 Blood Pressure 103/65 Pulse Oximetry 94 L Intake & Output 04/13/18 04/14/18 04/14/18 18:59 06:59 18:59 Intake Total 600 / 600 480 / 480 Balance 600 / 600 480 / 480 Weight 52.3 kg Intake: Oral 600 / 600 480 / 480 Other: # Voids 6 2 Date of Last Bowel Movement 04/11/18 # Bowel Movements 1 0 Results Procedures completed during hospitalization: chest tube placement/ removal. Labs on day of discharge: Labs from last 24 hours 04/14/18 04/14/18 06:49 06:49 WBC 3.2 L RBC 4.41 Hgb 10.3 L Hct 32.3 L MCV 73.2 L MCH 23.4 L MCHC 32.0 RDW 18.3 H Plt Count 158 MPV 7.6 Neut % (Auto) 66.8 Lymph % (Auto) 14.1 [place] % (Auto) 16.0 H Eos % (Auto) 2.4 Baso % (Auto) 0.7 Neut # (Auto) 2.1 Lymph # (Auto) 0.4 L [place] # (Auto) 0.5 Eos # (Auto) 0.1 Baso # (Auto) 0.0 WBC Differential . Differential Comment Auto diff final Sodium 137 Potassium 3.5 Chloride 102 Carbon Dioxide 23.4 Anion Gap 12 BUN 16 Creatinine 0.62 Estimated GFR Greater than 89 Random Glucose 92 Calcium 9.0 Phosphorus 2.9 Magnesium 2.0 Total Bilirubin 0.6 AST 20 ALT 14 Alkaline Phosphatase 74 Total Protein 6.6 Albumin 2.3 L - Impressions ITS Impressions Chest Tube Insertion 04/07/18 10:51 CONCLUSION: 1. Uncomplicated chest tube placement as above. 2. 350 cc of blood-tinged pleural fluid was evacuated. Chest CT 04/10/18 00:00 CONCLUSION: 1. Left-sided chest tube. Minimal amount of left pleural fluid. 2. Large left upper lobe/mediastinal mass again seen. Chest X-Ray 04/14/18 06:00 CONCLUSION: Huge malignant appearing mass in the left lung with loculated pleural effusion not significantly changed. Discharge Plan - Discharge Disposition Patient Disposition: 01 Discharge Home - Discharge Condition Condition: Stable - Discharge Order Discharge Orders: Discharge Order (Routine); Ordered 04/14/18 Ordered By: Darrick Barnes - Physicians Team Primary Care Provider: Jody Clements Attending Provider: Darrick Barnes Other Providers: Lelo Lind MD
--- NOTE | 2018-04-14 11:00 | P.PNPL ---
Subjective Interval history: 72 YOWF with ca lung, pl ef Mild chest discomfort no SOB Anxious to go home On RA Physical Exam Vital signs: Vital Signs 04/13/18 12:00 04/13/18 16:00 04/13/18 20:00 Temperature 97.9 F 97.9 F 98.6 F Pulse Rate 120 H 107 H 114 H Respiratory Rate 20 20 16 Blood Pressure 101/61 98/70 L 91/60 L Pulse Oximetry 96 95 94 L 04/13/18 20:23 04/13/18 21:03 04/13/18 23:48 Temperature Pulse Rate 108 H 107 H Respiratory Rate Blood Pressure 98/58 L Pulse Oximetry 04/14/18 00:00 04/14/18 03:57 04/14/18 04:00 Temperature 99.2 F 98.5 F Pulse Rate 106 H 114 H 104 H Respiratory Rate 16 16 Blood Pressure 98/61 L 97/58 L Pulse Oximetry 93 L 93 L 04/14/18 08:00 Temperature 98.5 F Pulse Rate 117 H Respiratory Rate 20 Blood Pressure 103/65 Pulse Oximetry 94 L Intake & Output 04/13/18 04/14/18 04/14/18 18:59 06:59 18:59 Intake Total 600 / 600 480 / 480 Balance 600 / 600 480 / 480 Weight 52.3 kg Intake: Oral 600 / 600 480 / 480 Other: # Voids 6 2 Date of Last Bowel Movement 04/11/18 # Bowel Movements 1 0 GENERAL: Thin built WF,NAD SKIN: Warm and dry. HEAD: Normocephalic. EYES: No scleral icterus. No injection or drainage. NECK: Supple, trachea midline. No JVD or lymphadenopathy. CARDIOVASCULAR: Regular rate and rhythm without murmurs, gallops, or rubs. RESPIRATORY: Breath sounds equal bilaterally. No accessory muscle use. GASTROINTESTINAL: Abdomen soft, non-tender, nondistended. MUSCULOSKELETAL: No cyanosis, or edema. BACK: Nontender without obvious deformity. No CVA tenderness. Narrative: GENERAL: AWAKE ALERT AND ORIENTED X3 TALKATIVE AND COOPERATIVE- THIN FEMALE SKIN: Warm and dry. HEAD: Atraumatic. Normocephalic. EYES: Pupils equal and round. No scleral icterus. No injection or drainage. ENT: No nasal bleeding or discharge. Mucous membranes pink and moist. NECK: Trachea midline. No JVD. CARDIOVASCULAR: Regular rate and rhythm. S1, S2 NO S3 OR S4 NO HEAVE OR THRILL RESPIRATORY: No accessory muscle use. DECREASED BREATH SOUNDS ON THE LEFT. Breath sounds equal bilaterally. GASTROINTESTINAL: Abdomen soft, non-tender, nondistended. Hepatic and splenic margins not palpable. MUSCULOSKELETAL: Extremities without clubbing, cyanosis, or edema. No obvious deformities. NEUROLOGICAL: Awake and alert. No obvious cranial nerve deficits. Motor grossly within normal limits. 4 out of 5 muscle strength in the arms and legs. Normal speech. PSYCHIATRIC: Appropriate mood and affect; insight and judgment normal. Assessment and Plan - Plan IMPRESSION: Ca Lung Pleural effusion COPD Weight loss PLAN: Supplement 02 Rpt CXr If reoccurance of pl fluid, will need chest tube and pleurodesis DW pt and her Willing to go home and come back for pleurodesis when fluid re accamulates She will FU with
[2018-04-14 14:33] VITALS: O2SAT 97
--- NOTE | 2018-04-19 16:50 | IR ---
EXAM DATE: 04/12/2018 5:55 PM EDT AGE/SEX: 72 years / Female INDICATIONS: Patient with history of pleural effusion in need of chest tube removal COMPARISON: . DEVICE(S): PROCEDURE: 1. Chest tube removal. Using aseptic technique the previously placed chest tube was easily removed in one piece and Vaseline gauze and sterile dressing was applied. Chest radiograph is to be obtained. 1. Uncomplicated chest tube removal. Electronically signed by: Marquez Fitzgerald MD 04/19/2018 4:48 PM EDT
== END 2018-04-14 16:58 | disposition home or self-care (01) ==
LOC: NEPE 09:21 → NEDA 13:03 → N04 16:51
PROVIDERS: ADMIT Internal Medicine; ATTEND Internal Medicine
DX: R00.0 Tachycardia, unspecified; C34.12 Malignant neoplasm of upper lobe, left bronchus or lung; R63.4 Abnormal weight loss; Z68.1 Body mass index [BMI] 19.9 or less, adult; J91.0 Malignant pleural effusion; F51.04 Psychophysiologic insomnia; J44.9 Chronic obstructive pulmonary disease, unspecified; E78.00 Pure hypercholesterolemia, unspecified; E87.6 Hypokalemia; E88.1 Lipodystrophy, not elsewhere classified; Z87.891 Personal history of nicotine dependence; E03.9 Hypothyroidism, unspecified; R11.0 Nausea